=== PATIENT | male | born 1960 | race Two or more races ===

== ENCOUNTER → 2017-03-07 | Outpatient (CLI) | payer MEDICARE, MEDICAID ==
[~2017-03-07] MED LIST: ACE3 PO; ACET-1748 PO; ALL300 PO; AZIT500T47 PO; BACDS PO; CALC-649 PO; CEFU250 PO; CHOL10005 PO; CYA1000 PO; DOC100 PO; ESOM40CA42 PO; FISH OIL1 CAP PO; FLUO-202 PO; FLUO40CA76 PO; FOLI-68 PO; INUL2TAB7 PO; KET10 PO; LACT250L10 PO; LEVO50TA80 PO; LOR05 PO; LOR5 PO; MELO-150 PO; METR1COM3 TP; METR45CR9 TP; METR59LO TP; MULT-1335 PO; MULT-820 PO; OMEG-11 PO; PHEN100 PO; Phenytek PO; SODI44SP17 NS; TAM4 PO; TRA50 PO; [UNRECOGNIZED DRUG - CODE] TP; [UNRECOGNIZED DRUG - OTHER] TP
--- NOTE | 2017-03-10 11:01 | RADIOLOGY IMAGING REPORT ---
FACILITY: [facility] PATIENT NAME: Zechariah Worley : 1960 MR: [id number] V: [id number] EXAM DATE: ORDERING PHYSICIAN: MUSTAPHA LEMUS TECHNOLOGIST: Location: [facility] Patient: Zechariah Worley : 1960 Visit/Account:[id number] Date of Sevice: 03/07/2017 EXAMINATION: CT abdomen without IV contrast CT pelvis without IV contrast History: Stones TECHNIQUE: Spiral scan was through the abdomen and pelvis without intravenous contrast. One of the following dose optimization techniques was utilized in the performance of this exam: Automated exposu re control; adjustment of the mA and/or kV according to the patient's size; or use of an iterative r econstruction technique. Specific details can be referenced in the facility's radiology CT exam oper ational policy. COMPARISON STUDIES: 02/25/2016. FINDINGS: Please note that without intravenous contrast, sensitivity to detection of parenchymal disease is kate ited. Lower chest: negative Liver / biliary: Status post cholecystectomy Pancreas: negative Spleen: negative Adrenal glands: negative Kidneys / retroperitoneum: Stable nonobstructing bilateral nephrolithiasis. No hydronephrosis or ure teral stones. Pelvic structures: negative Bowel / peritoneum / mesenteries: negative Vessels: negative Musculoskeletal / Body wall: Containing ventral abdominal wall hernia unchanged. Chronic compression fracture of T12 unchanged. Advanced spondylosis throughout the lumbar spine. Lymph node assessment: negative IMPRESSION: 1. Stable nonobstructing bilateral nephrolithiasis. No evidence of hydronephrosis or ureteral stone s. 2. Cholecystectomy. 3. Chronic compression fracture of T12 unchanged. Report Dictated By: Obey Lester MD at 03/07/2017 9:35 AM Report E-Signed By: Obey Lester MD at 03/07/2017 9:42 AM WSN:[email or web address]
== END ==
LOC: CT 00:41
PROVIDERS: ATTEND Urology
DX: N20.0 Calculus of kidney (principal); Z90.49 Acquired absence of other specified parts of digestive tract; K43.9 Ventral hernia without obstruction or gangrene
CPT/HCPCS: 74176

== ENCOUNTER 2017-03-09 08:56 | Outpatient (RCR) | payer MEDICARE, MEDICAID ==
--- NOTE | 2017-03-07 09:46 | RADIOLOGY IMAGING REPORT ---
FACILITY: [facility] - [place] PATIENT NAME: Zechariah Worley : 1960 MR: [id number] V: [id number] EXAM DATE: ORDERING PHYSICIAN: CAREN BOWDEN TECHNOLOGIST: Location: [facility] [place] Patient: Zechariah Worley : 1960 Visit/Account:[id number] Date of Sevice: 03/07/2017 EXAMINATION: CT abdomen without IV contrast CT pelvis without IV contrast History: Stones TECHNIQUE: Spiral scan was through the abdomen and pelvis without intravenous contrast. One of the following dose optimization techniques was utilized in the performance of this exam: Automated exposu re control; adjustment of the mA and/or kV according to the patient's size; or use of an iterative r econstruction technique. Specific details can be referenced in the facility's radiology CT exam oper ational policy. COMPARISON STUDIES: 02/25/2016. FINDINGS: Please note that without intravenous contrast, sensitivity to detection of parenchymal disease is kate ited. Lower chest: negative Liver / biliary: Status post cholecystectomy Pancreas: negative Spleen: negative Adrenal glands: negative Kidneys / retroperitoneum: Stable nonobstructing bilateral nephrolithiasis. No hydronephrosis or ure teral stones. Pelvic structures: negative Bowel / peritoneum / mesenteries: negative Vessels: negative Musculoskeletal / Body wall: Containing ventral abdominal wall hernia unchanged. Chronic compression fracture of T12 unchanged. Advanced spondylosis throughout the lumbar spine. Lymph node assessment: negative IMPRESSION: 1. Stable nonobstructing bilateral nephrolithiasis. No evidence of hydronephrosis or ureteral stone s. 2. Cholecystectomy. 3. Chronic compression fracture of T12 unchanged. Report Dictated By: Obey Lester MD at 03/07/2017 9:35 AM Report E-Signed By: Obey Lester MD at 03/07/2017 9:42 AM WSN:[email or web address]
[~2017-03-09] VITALS: Ht 162.6 cm; Wt 61.6 kg
[2017-03-09 09:08] VITALS: BP 102/67
[2017-03-09 09:23] LABS: PLATELET COUNT, AUTOMATED 354 K/uL (150-450)
--- NOTE | 2017-03-09 18:04 | ONCOLOGY FOLLOW UP NOTE ---
EVENT DATE: March 09, 2017 DIAGNOSES 1. Macrocytosis with normal CBC. 2. Hypothyroidism. 3. Depression. 4. History of vitamin B12 deficiency on vitamin B12 sublingual tablets. 5. Status post pacemaker placement for heart arrhythmia. 6. Osteoporosis. 7. Gout. 8. Mental retardation. CHIEF COMPLAINT Patient is here today for followup of his macrocytosis and lymphocytosis. HEMATOLOGY HISTORY The patient is a 56-year-old male with mental retardation due to Down syndrome who is an [facility] resident. The patient has been followed by Edwina Medina MD, who found that the patient has high MCV and MCH for sometime. He has a history of low vitamin B12, corrected with B12 supplement, but without improvement of MCV or MCH. His CBC on April 23, 2015 revealed white count of 8.2, hemoglobin 13.9, hematocrit 42.2, platelets 279,000. MCV was 104, MCH was 34.3. Absolute lymphocytic count was high at 3.9. Repeat CBC showed white count 5.4, hemoglobin 14.4, hematocrit 44.9, platelets 304,000 and MCV 106.5. Chem panel totally normal with normal liver enzymes. TSH is normal at 2.1. Red cell folate, serum folate, serum B12 and methylmalonic acid assay and serum protein electrophoresis all came within the normal range. HISTORY OF PRESENT ILLNESS Patient is here today for followup of his macrocytosis and lymphocytosis. He is doing fine currently and denies any complaint. PAST MEDICAL HISTORY 1. Gout. 2. Hypothyroidism. 3. GERD. 4. Pulmonary hypertension. 5. Atrioseptal defect. 6. History of renal stones. 7. Seizures. 8. Cardiac arrhythmias, status post pacemaker placement. PAST SURGICAL HISTORY 1. Pacemaker placement. 2. Cervical fusion in August 2010. FAMILY HISTORY Mother of cancer in 2008. SOCIAL HISTORY The patient is living in the [facility]. No abuse of tobacco, alcohol or drugs. CURRENT MEDICATIONS 1. Tylenol p.r.n. 2. Allopurinol 300 mg daily. 3. Antacid 500 mg chew two tablets for upset stomach. 4. Imodium 2 mg p.r.n. for diarrhea. 5. Calcium 600 mg plus vitamin D one tablet daily. 6. Fiber-Lax 500 mg one tablet twice daily. 7. Fish oil 1000 mg one tablet twice daily. 8. Fluoxetine 40 mg one tablet daily. 9. Fosamax 70 mg one tablet weekly. 10. Levothyroxine 75 mcg to alternate with 50 mcg daily. 11. Multivitamins. 12. Nexium 40 mg daily. 13. Tamsulosin 0.4 mg once daily. 14. Vitamin B12 at 1000 mcg sublingual tablet three times daily. 15. Vitamin D3 at 1000 international units daily. ALLERGIES No known drug allergies. REVIEW OF SYSTEMS CONSTITUTIONAL: No appetite or weight change. No fever, chills or sweating. No recent infection. HEENT: Ears: No tinnitus or hearing problem. Nose: No nasal discharge or epistaxis. Throat: No sore throat or mouth ulcers. Eyes: No diplopia or visual changes. RESPIRATORY: No shortness of breath. No cough, expectoration or hemoptysis. CARDIOVASCULAR: No chest pain, orthopnea, or paroxysmal nocturnal dyspnea (PND) . No edema. No palpitations. GASTROINTESTINAL: No nausea or vomiting. No diarrhea or constipation. No change in bowel movements. No heartburn or swallowing difficulties. No abdominal pain. No jaundice. No hematemesis, melena or rectal bleeding. GENITOURINARY: No hematuria or dysuria. MUSCULOSKELETAL: No pain in the muscles, joints or bones. NEUROLOGICAL: No tingling or numbness in the hands or feet. No headaches or convulsions. HEMATOLOGIC/LYMPHATIC: No bleeding or easy bruising. No weakness or fatigue. No enlarged lymph nodes. SKIN: No skin rash or lumps. PSYCHIATRIC: No anxiety or depression. PHYSICAL EXAMINATION GENERAL: Looks stable. Well-developed, well-nourished, and in no acute distress. VITAL SIGNS: Blood pressure 102/67, pulse 89 per minute, respirations 16 per minute, temperature 97.8, pulse ox 94% on room air. HEENT: Head: Atraumatic. No sinus tenderness to palpation. Eyes: No icterus or conjunctivitis. Mouth and throat: No oral thrush or mucositis. NECK: Supple. No cervical or supraclavicular lymphadenopathy. LUNGS: Clear to auscultation and percussion bilaterally. HEART: Regular rate and rhythm. No gallops, murmurs, clicks or rubs. ABDOMEN: Soft and lax. No tenderness. No hepatosplenomegaly. No masses. EXTREMITIES: No cyanosis, clubbing or edema. LYMPHATICS: No peripheral lymphadenopathy. NEUROLOGICAL: Conscious, alert and oriented times three. No focal motor or sensory deficits. PSYCHIATRIC: Mood and affect appear normal. SKIN: No skin rash, bruise or purpuric eruption. DIAGNOSTIC DATA CBC showed a white count of 7000, hemoglobin 15.6, hematocrit 46.2, platelets 354,000. MCV is 105.9 which is stable. Flow cytometry of the peripheral blood showed just CD8 positive reactive T cells, but no evidence of lymphoma of leukemia. ASSESSMENT 1. Macrocytosis. Could be due to drug effect given that the patient does not have any other abnormality in his workup. B12 folate and methylmalonic acid assay, red cell folate, serum protein immunoelectrophoresis all came back normal. TSH came back within the normal range also. His macrocytosis is chronic and is stable. His current MCV is 105.9. I am planning to check his blood count every six months. Patients with Down syndrome are liable to develop acute leukemia, and maybe myelodysplastic syndrome, and for this reason we are going to monitor his blood count every six months. 2. Absolute lymphocytosis and flow cytometry showed CD8 positive reactive T cells. There is no evidence of lymphoma or leukemia. 3. Hypothyroidism on supplement. 4. Depression. 5. Osteoporosis, on treatment. 6. Gout, on treatment. PLAN 1. Continue followup. 2. Patient to return in one month with CBC. 3. Patient is to contact us for any new concerns or complaints. JT
== END 2017-03-09 15:37 | disposition home or self-care (01) ==
LOC: SPU 08:56
PROVIDERS: ATTEND Internal Medicine Hematology
DX: D75.89 Other specified diseases of blood and blood-forming organs (principal); D72.820 Lymphocytosis (symptomatic); E03.9 Hypothyroidism, unspecified; M81.0 Age-related osteoporosis without current pathological fracture; M10.9 Gout, unspecified; Z79.899 Other long term (current) drug therapy; F79 Unspecified intellectual disabilities
CPT/HCPCS: 36415; 85025; G0463; 99212

== ENCOUNTER → 2017-04-20 | Outpatient (CLI) | payer MEDICARE, MEDICAID ==
[~2017-04-20] MED LIST changes: +IOPAMIDOL 76% 75 ML INFUS BTL 75 ML ONE; +NS 0.9% 20 ML SDV 20 ML ONE
--- NOTE | 2017-04-20 15:31 | RADIOLOGY IMAGING REPORT ---
FACILITY: [facility] PATIENT NAME: Zechariah Worley : 1960 MR: [id number] V: [id number] EXAM DATE: ORDERING PHYSICIAN: ANTOINETTE MODI TECHNOLOGIST: Location: [facility] [place] Patient: Zechariah Worley : 1960 Visit/Account:[id number] Date of Sevice: 04/20/2017 HEAD W W/O CONTRAST Provided history: Cerebellar ataxia, general weakness, hyperreflexia, short-term memory loss, shuffli ng gait Additional pertinent history: none TECHNIQUE: Imaging was obtained from the skull base through the vertex without and with intravenous c ontrast Contrast dose: 75 mL Isovue 370 intravenously. Source images were reformatted in the coronal sagittal planes. One of the following dose optimization techniques was utilized in the performance of this exam: Autom ated exposure control; adjustment of the mA and/or kV according to the patient's size; or use of an i terative reconstruction technique. Specific details can be referenced in the facility's radiology CT exam operational policy. COMPARISON STUDIES: Nonenhanced CT 03/12/12 FINDINGS: Brain volume: Lateral ventriculomegaly is progressive from prior. Maximal transverse diameter mid b carmela lateral ventricles today is 49 mm compared to 37 mm in prior. There is also new moderate symmetr ic enlargement of the temporal horns. Sylvian fissures are out of proportion to the mildly prominent sulci. 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 Acute cortical ischemia: None Chronic cortical and ganglionic ischemia: A small focus of subcortical hypodensity was present in t he posterior upper right frontal lobe adjacent to the motor strip. That area has now expanded to inv olve up to 2.6 x 3.1 cm transverse diameter encephalomalacic lesion compared to approximately 0.9 x 1.2 cm on prior. There is no localized mass effect or enhancement and this represents interim chroni c ischemia developing since last study 2011. This was described as in the parietal lobe on previous, however I think this is actually in the posterior frontal lobe directly affecting the motor strip. No other interim ischemia in the brain. Hemorrhage: None Masses / edema: None White matter: Normal Vessels: Normal Extra-axial: None significant Calvarium / scalp: Negative Skull base: negative Visualized sinuses / orbits: negative Partially at the sella is unchanged from prior. IMPRESSION: 1. No evidence of hemorrhage, acute ischemia or intracranial mass. 2. Progressive volume loss since last study 2011. Perisylvian and medial temporal volume loss is ou t of proportion to elsewhere raising concern for potential Alzheimer's. Correlate clinically. 3. Posterior superior right frontal lobe encephalomalacia. See above comments. 4. Stable giant cisterna magna. Report Dictated By: Clinton Ybarra MD at 04/20/2017 3:13 PM Report E-Signed By: Clinton Ybarra MD at 04/20/2017 3:26 PM WSN:[id number]
== END ==
LOC: CT 00:43
PROVIDERS: ATTEND Nurse Practitioner Family
DX: R93.0 Abnormal findings on diagnostic imaging of skull and head, not elsewhere classified (principal); G11.9 Hereditary ataxia, unspecified; R53.1 Weakness; R29.2 Abnormal reflex; R41.3 Other amnesia; R26.89 Other abnormalities of gait and mobility
CPT/HCPCS: 70470; J7050; Q9967

== ENCOUNTER 2017-08-30 10:56 | Outpatient (RCR) | payer MEDICARE, MEDICAID ==
[~2017-08-30] VITALS: Ht 154.9 cm; Wt 58.1 kg
[~2017-08-30 10:56] MED LIST changes: -IOPAMIDOL 76% 75 ML INFUS BTL 75 ML ONE; -NS 0.9% 20 ML SDV 20 ML ONE
--- NOTE | 2017-08-30 17:32 | Medical Nutrition Therapy ---
Nutrition Anthropometrics Height (Inches): 61 Weight (Pounds): 128 Pablo Nutrition Score: Pablo Nutrition Risk Score: Dietary Referral Nutrition Risk Factors: Nutrition Risk Comment: Nutritional Education Nutrition Education Topic: Weight Loss Diet Learning Barriers: Cognitive Learning Readiness: Little Interest (pt had little interest, caregivers were interested) Response to Teaching: Verbalize understanding (caregivers) Teaching Recipient: Patient, Primary Caregiver Nutrition Counseling: ARK pt attended session on nutrition to assist with wt loss. Pt did not show interest in session but care givers were interested. Discussed importance of correct portion of foods to assist with wt loss. Provided Exchange list diet with emphasis on food groups and how to incorporat this in main meal plan. Majority of session was spent developing healthy weekly meal plan with care givers. Care givers will f/u with meal ideas which will be reviewed by RD. Goal is to provide 4 week menu that works with pt's nutrtional needs. Nutrition Monitoring & Eval RD Patient Assessment Time: [address] Assessment Type: RD Education Nutritional Comment: Provided 60 minute MNT for wt loss Copies To Copies to: CAESAR HERCULES MD, BETH Aug 30, 2017 17:32
== END 2017-10-04 ==
LOC: DIET 10:56
PROVIDERS: ATTEND Psychiatry & Neurology Psychiatry
DX: Z71.3 Dietary counseling and surveillance (principal); R63.5 Abnormal weight gain; Q90.9 Down syndrome, unspecified; Z68.24 Body mass index [BMI] 24.0-24.9, adult
CPT/HCPCS: 97802; 97804

== ENCOUNTER 2017-10-05 09:00 | Outpatient (RCR) | payer MEDICARE, MEDICAID ==
[~2017-10-05] VITALS: Ht 162.6 cm; Wt 58.8 kg
[2017-10-05 09:39] VITALS: BP 86/66
[2017-10-05 09:46] LABS: PLATELET COUNT, AUTOMATED 359 K/uL (150-450)
--- NOTE | 2017-10-05 16:48 | ONCOLOGY FOLLOW UP NOTE ---
EVENT DATE: October 05, 2017 DIAGNOSES 1. Macrocytosis with normal CBC. 2. Hypothyroidism. 3. Depression. 4. History of vitamin B12 deficiency on vitamin B12 sublingual tablets. 5. Status post pacemaker placement for heart arrhythmia. 6. Osteoporosis. 7. Gout. 8. Mental retardation. CHIEF COMPLAINT Patient is here today for followup of his macrocytosis and lymphocytosis. HEMATOLOGY HISTORY The patient is a 57-year-old male with mental retardation due to Down syndrome who is an [facility] resident. The patient has been followed by Edwina Medina MD, who found that the patient has high MCV and MCH for sometime. He has a history of low vitamin B12, corrected with B12 supplement, but without improvement of MCV or MCH. His CBC on April 23, 2015 revealed white count of 8.2, hemoglobin 13.9, hematocrit 42.2, platelets 279,000. MCV was 104, MCH was 34.3. Absolute lymphocytic count was high at 3.9. Repeat CBC showed white count 5.4, hemoglobin 14.4, hematocrit 44.9, platelets 304,000 and MCV 106.5. Chem panel totally normal with normal liver enzymes. TSH is normal at 2.1. Red cell folate, serum folate, serum B12 and methylmalonic acid assay and serum protein electrophoresis all came within the normal range. HISTORY OF PRESENT ILLNESS Patient is here today for followup of his macrocytosis and lymphocytosis. He is doing fine currently and denies any complaints. PAST MEDICAL HISTORY 1. Gout. 2. Hypothyroidism. 3. GERD. 4. Pulmonary hypertension. 5. Atrioseptal defect. 6. History of renal stones. 7. Seizures. 8. Cardiac arrhythmias, status post pacemaker placement. PAST SURGICAL HISTORY 1. Pacemaker placement. 2. Cervical fusion in August 2010. FAMILY HISTORY Mother of cancer in 2008. SOCIAL HISTORY The patient is living in the [facility]. No abuse of tobacco, alcohol or drugs. CURRENT MEDICATIONS 1. Tylenol p.r.n. 2. Allopurinol 300 mg daily. 3. Antacid 500 mg chew two tablets for upset stomach. 4. Imodium 2 mg p.r.n. for diarrhea. 5. Calcium 600 mg plus vitamin D one tablet daily. 6. Fiber-Lax 500 mg one tablet twice daily. 7. Fish oil 1000 mg one tablet twice daily. 8. Fluoxetine 40 mg one tablet daily. 9. Fosamax 70 mg one tablet weekly. 10. Levothyroxine 75 mcg to alternate with 50 mcg daily. 11. Multivitamins. 12. Nexium 40 mg daily. 13. Tamsulosin 0.4 mg once daily. 14. Vitamin B12 at 1000 mcg sublingual tablet three times daily. 15. Vitamin D3 at 1000 international units daily. ALLERGIES No known drug allergies. REVIEW OF SYSTEMS CONSTITUTIONAL: No appetite or weight change. No fever, chills or sweating. No recent infection. HEENT: Ears: No tinnitus or hearing problem. Nose: No nasal discharge or epistaxis. Throat: No sore throat or mouth ulcers. Eyes: No diplopia or visual changes. RESPIRATORY: No shortness of breath. No cough, expectoration or hemoptysis. CARDIOVASCULAR: No chest pain, orthopnea, or paroxysmal nocturnal dyspnea (PND) . No edema. No palpitations. GASTROINTESTINAL: No nausea or vomiting. No diarrhea or constipation. No change in bowel movements. No heartburn or swallowing difficulties. No abdominal pain. No jaundice. No hematemesis, melena or rectal bleeding. GENITOURINARY: No hematuria or dysuria. MUSCULOSKELETAL: No pain in the muscles, joints or bones. NEUROLOGICAL: No tingling or numbness in the hands or feet. No headaches or convulsions. HEMATOLOGIC/LYMPHATIC: No bleeding or easy bruising. No weakness or fatigue. No enlarged lymph nodes. SKIN: No skin rash or lumps. PSYCHIATRIC: No anxiety or depression. PHYSICAL EXAMINATION GENERAL: Looks stable. Well-developed, well-nourished, and in no acute distress. VITAL SIGNS: Blood pressure 86/66, pulse 66 per minute, respirations 16 per minute, temperature 96.7, pulse ox 97% on room air. HEENT: Head: Atraumatic. No sinus tenderness to palpation. Eyes: No icterus or conjunctivitis. Mouth and throat: No oral thrush or mucositis. NECK: Supple. No cervical or supraclavicular lymphadenopathy. LUNGS: Clear to auscultation and percussion bilaterally. HEART: Regular rate and rhythm. No gallops, murmurs, clicks or rubs. ABDOMEN: Soft and lax. No tenderness. No hepatosplenomegaly. No masses. EXTREMITIES: No cyanosis, clubbing or edema. LYMPHATICS: No peripheral lymphadenopathy. NEUROLOGICAL: Conscious, alert and oriented times three. No focal motor or sensory deficits. PSYCHIATRIC: Mood and affect appear normal. SKIN: No skin rash, bruise or purpuric eruption. DIAGNOSTIC DATA CBC showed a white count of 5.5, hemoglobin 15.6, hematocrit 45.7, MCV 104.4 and platelets 359,000. Absolute lymphocytic count is normal at 2.6. ASSESSMENT 1. Macrocytosis. Could be due to drug effect given that the patient does not have any other abnormality in his workup. B12 folate and methylmalonic acid assay, red cell folate, serum protein immunoelectrophoresis all came back normal. TSH was also normal. His macrocytosis is chronic and stable. His current MCV is 104.4. It was 105.9 last visit. I am planning to continue followup. I will see him again in six months with CBC at that time. Patients with Down syndrome are liable to develop acute leukemia and myelodysplastic syndrome, and for this reason I am going to monitor his blood count every six months. 2. Absolute lymphocytosis and flow cytometry showed CD8 positive reactive T cells. No evidence of lymphoma or leukemia. His current absolute lymphocytic count today is normal at 2.6. 3. Hypothyroidism, on supplement. 4. Depression. 5. Osteoporosis, on treatment. 6. Gout, on treatment. PLAN 1. Continue followup. 2. Patient to return in six months with CBC. 3. Patient is to contact us for any new concerns or complaints. JT
[2017-10-28] MEDS ORDERED: MELA3TAB31 PO (10:54)
[2017-10-28] MEDS ORDERED: DULO30CA6 PO (10:54)
[2017-10-28] MEDS ORDERED: ALEN70TA43 PO (10:54)
[2017-10-28] MEDS ORDERED: LOSA25TA50 PO (10:54)
[2017-10-28] MEDS ORDERED: LEVO75TA73 PO (15:39)
[2017-10-28] MEDS ORDERED: EMOL454O TP (15:39)
[2017-10-28] MEDS ORDERED: CALC625T65 PO (15:39)
[2017-10-28] MEDS ORDERED: LOPE2CAP15 PO (15:50)
[2017-10-28] MEDS ORDERED: ACET-2146 PO (15:50)
[2017-10-28] MEDS ORDERED: EYEL1MED TP (15:50)
[2017-10-28] MEDS ORDERED: CALC1TAB24 PO (15:50)
[2017-10-28] MEDS ORDERED: COAL130S5 TP (15:50)
[2017-10-28] MEDS ORDERED: METR45CR9 TP (15:50)
[2017-10-28] MEDS ORDERED: TRIA15OI20 TP (15:56)
[2017-10-28] MEDS ORDERED: BACI1OIN6 TP (15:56)
[2017-10-28] MEDS ORDERED: GUAI-244 PO (15:56)
[2017-10-28] MEDS ORDERED: HYDR28GE3 TP (15:56)
[2017-11-02] MEDS ORDERED: LEVE500T73 PO (08:55)
[2017-11-02] MEDS ORDERED: LOR5/325 PO (08:55)
== END 2017-11-10 08:26 | disposition home or self-care (01) ==
LOC: SPU 09:00
PROVIDERS: ATTEND Internal Medicine Hematology
DX: D75.89 Other specified diseases of blood and blood-forming organs (principal); R71.8 Other abnormality of red blood cells; E03.9 Hypothyroidism, unspecified; D72.820 Lymphocytosis (symptomatic); M81.0 Age-related osteoporosis without current pathological fracture; M10.9 Gout, unspecified; Z79.899 Other long term (current) drug therapy; Z95.0 Presence of cardiac pacemaker
CPT/HCPCS: 36415; 85025; G0463; 99212

== ENCOUNTER 2017-10-28 10:20 | Inpatient (IN) | payer MEDICARE, MEDICAID ==
[~2017-10-28] VITALS: Ht 162.6 cm; Wt 59.0 kg
[~2017-10-28 10:20] MED LIST changes: -ACET-2146 PO; -ALEN70TA43 PO; -BACI1OIN6 TP; -CALC1TAB24 PO; -CALC625T65 PO; -COAL130S5 TP; -DULO30CA6 PO; -EMOL454O TP; -EYEL1MED TP; -GUAI-244 PO; -HYDR28GE3 TP; -LEVE500T73 PO; -LEVO75TA73 PO; -LOPE2CAP15 PO; -LOR5/325 PO; -LOSA25TA50 PO; -MELA3TAB31 PO; -TRIA15OI20 TP
[2017-10-28] MEDS ORDERED: DIPHTH/TETANUS/ACEL. PERTUSSIS IM ONE (10:25)
--- NOTE | 2017-10-28 10:25 | ER Report ---
History and Physical Time Seen By MD: 10:24 HPI/ROS CHIEF COMPLAINT: Fall, unwitnessed HISTORY OF PRESENT ILLNESS: Patient is a 57-year-old male with intellectual disability from a fci here status post unwitnessed fall while in the kitchen on a tile floor. Patient was found on the floor bleeding from his nostrils, confused. At time of arrival, the patient is restless, agitated with c -collar on. Patient is not actively bleeding at time of evaluation. REVIEW OF SYSTEMS: Unable to obtain due to mental status Allergies: Uncoded Allergies: AVOID NSAIDS (Adverse Reaction, Unknown, 11/23/11) Home Meds Reported Medications Triamcinolone Acetonide 0.1% Oint 15 Gm Tube (TRIAMCINOLONE ACETONIDE 0.1% 15 GM TUBE) 15 Gm Oint...g., 1 APPLIC TP PRN, TUBE 10/28/17 Guaifenesin (ROBAFEN) 100 Mg/5 Ml Liquid, 5-10 ML PO PRN Y for COUGH 10/28/17 Hydrocortisone (CORTIZONE 10) 28 Gm Gel..gram., 1 APPLIC TP PRN 10/28/17 Bacitracin Zinc (Bacitracin Zinc) 1 Each Oint..ea., 1 APPLIC TP PRN 10/28/17 Loperamide HCl (Imodium A-D) 2 Mg Capsule, 2 TAB PO PRN Y for DIARRHEA 2 tabs after 2 watery stools 10/28/17 Calcium Carbonate/Mag Hydrox (ANTACID CHEWABLE TABLET) 1 Each Tab.chew, 2 TAB PO PRN, TAB.CHEW 10/28/17 Acetaminophen 500 Mg Tab (ACETAMINOPHEN EXTRA STRENGTH) 500 Mg Tablet, 2 TAB PO Q4-6H Y for PAIN, TAB 10/28/17 [place] Tar (T-Gel) 0.5 % Shampoo, 1 FREDDY TP 3XW 10/28/17 Eyelid Cleanser Combination #5 (OCUSOFT LID SCRUB) 1 Each Med..pad, 1 EACH TP BID 10/28/17 Metronidazole (METRONIDAZOLE) 45 Gm Cream..g., 1 APPLIC TP HS 0.75% cream 10/28/17 Levothyroxine Sodium (LEVOTHYROXINE SODIUM) 75 Mcg Tablet, 75 MCG PO QDAY, TAB 10/28/17 Emollient Combination No.97 (Aquaphilic) 454 Gm Oint...g., 1 APPLIC TP BID 10/28/17 Calcium Polycarbophil (FIBER-LAX) 625 Mg Tablet, 1 TAB PO BID 10/28/17 Melatonin (MELATONIN) 3 Mg Tablet, 3 MG PO QHS 10/28/17 Losartan Potassium (LOSARTAN POTASSIUM) 25 Mg Tablet, 25 MG PO QDAY 10/28/17 Duloxetine HCl (Duloxetine HCl) 30 Mg Capsule.dr, 1 CAP PO DAILY 10/28/17 Alendronate Sodium (FOSAMAX) 70 Mg Tablet, 70 MG PO QWK, TAB 10/28/17 Folic Acid (FOLIC ACID) 1 Mg Tablet, 1 MG PO QDAY, TAB 02/10/17 Cholecalciferol (Vitamin D3) (VITAMIN D3) 1,000 Unit Tablet, 1000 UNIT PO QPM, TAB 02/10/17 Cyanocobalamin (Vitamin B-12) (VITAMIN B-12) 1,000 Mcg Tablet, 1000 MCG PO 2XW 02/10/17 Tamsulosin Hcl (Flomax) 0.4 Mg Cap, 0.4 MG PO QDAY, #30 0 Refills 05/26/11 Docosahexanoic Acid/Epa (Fish Oil 1,000 Mg Capsule) 1 Cap Capsule, 1 CAP PO BID , 0 Refills 05/24/11 Lorazepam (Ativan) 0.5 Mg Tab, 0.5 MG PO Q8H Y, 0 Refills 04/12/11 Multivitamins W-Minerals (Multiple Vitamin) 1 Tab Tablet, 1 TAB PO DAILY, 0 Refills 04/12/11 Allopurinol (Zyloprim) 300 Mg Tab, 300 MG PO QPM, 0 Refills 04/12/11 Calcium Carbonate/Vitamin D3 (Calcium + D Tablet) 1 Udtab Tablet, 1 TAB PO TID, 0 Refills Calcium 600mg/Vit D 400mg 04/12/11 Esomeprazole Mag Trihydrate (Nexium) 40 Mg Capsule.dr, 40 MG PO QDAY, 0 Refills 04/12/11 Levothyroxine Sodium (Synthroid) 50 Mcg Tablet, 50 MCG PO DAILY, 0 Refills 04/12/11 Discontinued Reported Medications [Zulay Bruno] No Conflict Check, TP BID, 0 Refills 05/24/11 Metronidazole/Skin Cleanser (Metrogel 1% Kit) 1 Ea Combo..pkg, 1 EA TP DAILY, 0 Refills 05/24/11 Fluoxetine Hcl (Prozac) 40 Mg Capsule, 40 MG PO QDAY, #20 0 Refills 04/12/11 Fiber (Fiber) 1 Tab.chew Tab.chew, 1 TAB.CHEW PO BID, 0 Refills 04/12/11 Hx Smoking: No Exposure to Second Hand Smoke?: No Hx Substance Use Disorder: No Hx Alcohol Use: No Constitutional Vital Sign - Last 24 Hours 10/28/17 10/28/17 10/28/17 10/28/17 10:13 10:45 11:00 11:30 Temp 97.7 Pulse 125 124 88 69 Resp 22 B/P (MAP) 127/94 Pulse Ox 91 89 84 95 O2 Delivery Room Air 10/28/17 10/28/17 10/28/17 10/28/17 11:42 11:45 12:00 12:15 Pulse 60 65 65 B/P (MAP) 104/79 (87) 101/75 (84) Pulse Ox 94 96 94 10/28/17 10/28/17 10/28/17 10/28/17 12:30 12:45 13:00 13:15 Pulse 83 65 69 60 B/P (MAP) 111/80 (90) 100/63 (75) Pulse Ox 97 96 97 93 10/28/17 10/28/17 13:30 13:45 Pulse 89 85 B/P (MAP) 107/76 (86) Pulse Ox 92 95 Physical Exam General Appearance: The patient is alert, has no immediate need for airway protection and no signs of toxicity. Agitated, restless Eyes: Pupils equal and round no pallor or injection. ENT, Mouth: Mucous membranes are moist, small laceration on the bridge of the nose, dried blood of the nostrils Respiratory: There are no retractions, lungs are clear to auscultation. Cardiovascular: Regular rate and rhythm. Gastrointestinal: Abdomen is soft and non tender, no masses, bowel sounds normal. Neurological: Moving all extremities spontaneously Skin: Warm and dry, no rashes. Musculoskeletal: Neck is supple non tender. Extremities are nontender, nonswollen and have full range of motion. DIFFERENTIAL DIAGNOSIS: After history and physical exam differential diagnosis was considered for contusion, abrasion, fracture, concussion Medical Decision Making Data Points Result Diagram: 10/29/17 0639 10/29/17 0639 Laboratory Hematology Test 10/28/17 10:20 10/28/17 13:33 10/28/17 13:46 Neutrophils % (Manual) 30 % (39.4-72.5) Lymphocytes % (Manual) 31 % (17.6-49.6) Atypical Lymphocytes % 34 % Monocytes % (Manual) 2 % (4.1-12.4) Eosinophils % (Manual) 1 % (0.4-6.7) Basophils % (Manual) 2 % (0.3-1.4) Macrocytosis 1+ Peripheral Blood Smear Yes Y/N Prothrombin Time 13.0 seconds (12.0-14.4) Prothromb Time International Ratio 0.99 Activated Partial Thromboplast Time 27 seconds (23-35) Lipase 74 U/L (23-300) Urine Color Yellow Urine Clarity Clear Urine pH 6.0 pH (4.8-9.5) Urine Specific [place] 1.008 Urine Protein Negative mg/dL (NEGATIVE) Urine Glucose (UA) Negative mg/dL (NEGATIVE) Urine Ketones Negative mg/dL (NEGATIVE) Urine Blood Negative (NEGATIVE) Urine Nitrite Negative (NEGATIVE) Urine Bilirubin Negative (NEGATIVE) Urine Urobilinogen Negative mg/dL (0.2-1.9) Urine Leukocyte Esterase Negative (NEGATIVE) Urine RBC <1 /HPF (0-2/HPF) Urine WBC 1 /HPF (0-5/HPF) Urine Squamous Epithelial Cells None /LPF (NONE-FEW) Urine Bacteria Few /HPF (NONE-FEW) Urine Hyaline Casts Few /LPF (NONE-FEW) Urine Mucus None /HPF (NONE-FEW) Lactate 1.5 mmol/L (0.7-2.1) Chemistry Test 10/28/17 10:20 10/28/17 13:33 10/28/17 13:46 Neutrophils % (Manual) 30 % (39.4-72.5) Lymphocytes % (Manual) 31 % (17.6-49.6) Atypical Lymphocytes % 34 % Monocytes % (Manual) 2 % (4.1-12.4) Eosinophils % (Manual) 1 % (0.4-6.7) Basophils % (Manual) 2 % (0.3-1.4) Macrocytosis 1+ Peripheral Blood Smear Yes Y/N Prothrombin Time 13.0 seconds (12.0-14.4) Prothromb Time International Ratio 0.99 Activated Partial Thromboplast Time 27 seconds (23-35) Lipase 74 U/L (23-300) Urine Color Yellow Urine Clarity Clear Urine pH 6.0 pH (4.8-9.5) Urine Specific [place] 1.008 Urine Protein Negative mg/dL (NEGATIVE) Urine Glucose (UA) Negative mg/dL (NEGATIVE) Urine Ketones Negative mg/dL (NEGATIVE) Urine Blood Negative (NEGATIVE) Urine Nitrite Negative (NEGATIVE) Urine Bilirubin Negative (NEGATIVE) Urine Urobilinogen Negative mg/dL (0.2-1.9) Urine Leukocyte Esterase Negative (NEGATIVE) Urine RBC <1 /HPF (0-2/HPF) Urine WBC 1 /HPF (0-5/HPF) Urine Squamous Epithelial Cells None /LPF (NONE-FEW) Urine Bacteria Few /HPF (NONE-FEW) Urine Hyaline Casts Few /LPF (NONE-FEW) Urine Mucus None /HPF (NONE-FEW) Lactate 1.5 mmol/L (0.7-2.1) Coagulation Test 10/28/17 10:20 Prothrombin Time 13.0 seconds Prothromb Time International Ratio 0.99 Activated Partial Thromboplast Time 27 seconds Urinalysis Test 10/28/17 13:33 Urine Color Yellow Urine Clarity Clear Urine pH 6.0 pH (4.8-9.5) Urine Specific [place] 1.008 Urine Protein Negative mg/dL (NEGATIVE) Urine Glucose (UA) Negative mg/dL (NEGATIVE) Urine Ketones Negative mg/dL (NEGATIVE) Urine Blood Negative (NEGATIVE) Urine Nitrite Negative (NEGATIVE) Urine Bilirubin Negative (NEGATIVE) Urine Urobilinogen Negative mg/dL (0.2-1.9) Urine Leukocyte Esterase Negative (NEGATIVE) Urine RBC <1 /HPF (0-2/HPF) Urine WBC 1 /HPF (0-5/HPF) Urine Squamous Epithelial Cells None /LPF (NONE-FEW) Urine Bacteria Few /HPF (NONE-FEW) Urine Hyaline Casts Few /LPF (NONE-FEW) Urine Mucus None /HPF (NONE-FEW) EKG/Imaging Imaging EXAMINATION: CT chest with IV contrast CT abdomen with IV contrast CT pelvis with IV contrast HISTORY: Trauma. Fall. TECHNIQUE: Spiral scan was obtained through the chest, abdomen and pelvis during injection of nonionic iodinated intravenous contrast. Sagittal and coronal reformatted images are also submitted. One of the following dose optimization techniques was utilized in the performance of this exam: Automated exposure control; adjustment of the mA and/ or kV according to the patient's size; or use of an iterative reconstruction technique. Specific details can be referenced in the facility's radiology CT exam operational policy. CONTRAST: 75 mL of IV Isovue-[id number]. COMPARISON: CT of the abdomen pelvis on 03/07/2017. FINDINGS: Poor contrast enhancement. CT THORAX: Lungs / pleura: Lungs show dependent atelectasis. No focal consolidations, pleural effusion or pneumothorax. No discrete nodule or focal interstitial opacities. Airways are clear. Mediastinum / jaquan: No enlarged lymph nodes with a few small lymph nodes. No abnormal density. Heart / pericardium: Heart is normal size. Small amount of pericardial fluid is present. Pacing wires are in place. Vessels: Motion artifact. Poor opacification the vessels. No indication of aneurysm or discrete dissection of the aorta. The pulmonary arteries are grossly normal. Musculoskeletal / Body wall: Motion artifact. No discrete acute fracture. No erosive bony lesions. Rightward convexity of the lower thoracic spine. Stable compression the T12 vertebral body. Degenerative changes of the thoracic spine are mild. The chest wall shows no enlarged axillary lymph nodes or masses. CT ABDOMEN AND PELVIS: Poor opacification/enhancement of the structures. Liver / biliary: No focal normality to liver. Status post cholecystectomy. The biliary system is unremarkable. Pancreas: No focal abnormality. Spleen: No focal abnormality. Adrenal glands: Negative. Kidneys: Both kidneys do show several stones in the collecting system, 4 mm and less. No hydronephrosis. No discrete renal lesions. Pelvic structures: Pelvic structures visualized within normal limits. Bowel: Prominent stool seen in the rectosigmoid colon without focal abnormality. The signal colon is decompressed without focal normality. The remaining colon shows no focal normality with some stool in colon. The appendix is not definitely visualized. The small bowel shows no focal normality or obstruction. Stomach is unremarkable. Peritoneum / retroperitoneum / mesenteries: No free air, free fluid, fluid collections or areas of inflammation. Small moderate right paracentral ventral hernia just above the umbilicus containing only fat. Tiny umbilical hernia containing fat. Vessels: Negative. Musculoskeletal / Body wall: No acute fractures or aggressive bony lesions. Degenerative changes spine. Leftward convexity lumbar spine. Lymph node assessment: Negative. IMPRESSION: 1. No discrete indication of acute abnormality or traumatic injury to the chest , abdomen or pelvis. 2. Minimal pericardial fluid. 3. Prominent stool seen in the rectosigmoid colon without focal abnormality. 4. Nonobstructing bilateral renal calculi. 5. Other chronic findings as above. 6 report contrast enhancement on this exam. 6. Poor contrast enhancement on this exam. CT Head without contrast and CT Cervical spine: Indication: Trauma. Comparison: 04/20/2017. Technique: CT head: Axial CT images were obtained through the brain from the skull base to the vertex without administration of IV contrast. Reformatted coronal and sagittal images were also obtained. Technique: CT cervical spine: Axial CT imaging of the cervical spine was performed. 2-D sagittal and coronal CT reformats were also obtained. One of the following dose optimization techniques was utilized in the performance of this exam: Automated exposure control; adjustment of the mA and/ or kV according to the patient's size; or use of an iterative reconstruction technique. Specific details can be referenced in the facility's radiology CT exam operational policy. FINDINGS: CT head: No intracranial bleed, midline shift, mass affect, extra-axial fluid collection or hydrocephalus. Age-related cerebral atrophy. Periventricular white white matter ischemic changes consistent small vessel disease. 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 Sethi/white matter differentiation appears normal. There is again a enlarged cisterna magna which is stable. Bony structures show no fractures or lesions. Leftward deviation nasal septum. The sinuses and mastoids visualized are clear. CT cervical spine: There is a chronic posterior mild spinal listhesis of C2 over C3 due to degenerative changes in the previous fusion of C3-C6 without sequelae. Anterior plates and screws are in place. Minimal anterior spinal listhesis of C7 over T1 due to facet arthropathy. The remaining vertebral bodies are aligned. No acute fracture or facet dislocation. No bony lesions. There is diffuse degenerative changes which is significant C2-3 level including disc space narrowing, endplate changes, osteophytes and facet arthropathy. No bony canal stenosis. There are some neural foraminal narrowing seen at multiple levels. The endplates appear maintained. Prevertebral soft tissues and surrounding soft tissues are unremarkable. Lung apices are clear. IMPRESSION: 1. No acute intracranial abnormality. 2. No acute osseous or acute alignment abnormality of the cervical spine. Post surgical fusion without sequelae. Degenerative changes as above. CT Head without contrast and CT Cervical spine: Indication: Trauma. Comparison: 04/20/2017. Technique: CT head: Axial CT images were obtained through the brain from the skull base to the vertex without administration of IV contrast. Reformatted coronal and sagittal images were also obtained. Technique: CT cervical spine: Axial CT imaging of the cervical spine was performed. 2-D sagittal and coronal CT reformats were also obtained. One of the following dose optimization techniques was utilized in the performance of this exam: Automated exposure control; adjustment of the mA and/ or kV according to the patient's size; or use of an iterative reconstruction technique. Specific details can be referenced in the facility's radiology CT exam operational policy. FINDINGS: CT head: No intracranial bleed, midline shift, mass affect, extra-axial fluid collection or hydrocephalus. Age-related cerebral atrophy. Periventricular white white matter ischemic changes consistent small vessel disease. 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 Sethi/white matter differentiation appears normal. There is again a enlarged cisterna magna which is stable. Bony structures show no fractures or lesions. Leftward deviation nasal septum. The sinuses and mastoids visualized are clear. CT cervical spine: There is a chronic posterior mild spinal listhesis of C2 over C3 due to degenerative changes in the previous fusion of C3-C6 without sequelae. Anterior plates and screws are in place. Minimal anterior spinal listhesis of C7 over T1 due to facet arthropathy. The remaining vertebral bodies are aligned. No acute fracture or facet dislocation. No bony lesions. There is diffuse degenerative changes which is significant C2-3 level including disc space narrowing, endplate changes, osteophytes and facet arthropathy. No bony canal stenosis. There are some neural foraminal narrowing seen at multiple levels. The endplates appear maintained. Prevertebral soft tissues and surrounding soft tissues are unremarkable. Lung apices are clear. IMPRESSION: 1. No acute intracranial abnormality. 2. No acute osseous or acute alignment abnormality of the cervical spine. Post surgical fusion without sequelae. Degenerative changes as above. ED Course/Re-evaluation ED Course Patient is a 57-year-old male here status post fall which was unwitnessed. senior care staff reports that the patient was found in the kitchen floor leading from his nostrils, confused. At baseline, the patient reportedly is able to speak however has an intellectual disability at baseline. They report that the patient is more confused than normal. Patient is agitated and attempting to crawl out of bed. He was given olanzapine due to agitation. CT imaging of the head and C-spine, Chest/abd/pelvis were completed and showed no acute fractures or infectious etiologies. Patient initially was noted to have a lactate of 6.6 however this cleared to 1.5 on repeat lab finding. Patient was noted to have a white blood cell count of 14,000 with no signs of left shift or fever. Urinalysis showed no signs of infection though he was noted to have acute kidney injury. Patient received tetanus booster, fluid resuscitation. Due to the patient's acute change in mental status and lab abnormalities, I discussed the patient with Dr. Yanez who accepted the patient to the hospitalist service for further treatment optimization. Patient was stable at time of admission. Decision to Disposition Date: Oct 28, 2017 Decision to Disposition Time: 13:00 Depart Departure Latest Vital Signs Vital Signs Date Time Temp Pulse Resp B/P (MAP) Pulse Ox O2 Delivery O2 Flow Rate FiO2 10/28/17 13:45 85 95 10/28/17 13:30 107/76 (86) 10/28/17 10:13 97.7 22 Room Air Impression: Primary Impression: Head trauma Additional Impressions: Elevated WBC count Altered mental status Condition: Improved Disposition: Admitted from ER Problem Qualifiers Additional Impressions: Elevated WBC count Leukocytosis type: lymphocytosis Qualified Codes: D72.820 - Lymphocytosis ( symptomatic) DAYNE BRENNAN DO Oct 28, 2017 10:25
[2017-10-28] MEDS ORDERED: OLANZapine 10 MG VIAL IM ONLY ONE (10:30)
[2017-10-28] MEDS ORDERED: WATER STERILE 10 ML VIAL IM ONLY ONE (10:30)
[2017-10-28 10:41] LABS: PLATELET COUNT, AUTOMATED 399 K/uL (150-450)
[2017-10-28 10:44] LABS: INR 0.99
[2017-10-28] MEDS ORDERED: DULO30CA6 PO (10:54)
[2017-10-28] MEDS ORDERED: ALEN70TA43 PO (10:54)
[2017-10-28] MEDS ORDERED: LOSA25TA50 PO (10:54)
[2017-10-28] MEDS ORDERED: MELA3TAB31 PO (10:54)
[2017-10-28] MEDS ORDERED: IOPAMIDOL 76% 75 ML INFUS BTL 75 ML ONE (10:58)
[2017-10-28] MEDS ORDERED: NS(*) 0.9% 1000 ML BAG 1,000 ML IV ONE (11:00)
--- NOTE | 2017-10-28 12:14 | RADIOLOGY IMAGING REPORT ---
FACILITY: [facility] PATIENT NAME: Zechariah Worley : 1960 MR: [id number] V: [id number] EXAM DATE: ORDERING PHYSICIAN: DAYNE BRENNAN TECHNOLOGIST: Location: [facility] Patient: Zechariah Worley : 1960 Visit/Account:[id number] Date of Sevice: 10/28/2017 CT Head without contrast and CT Cervical spine: Indication: Trauma. Comparison: 04/20/2017. Technique: CT head: Axial CT images were obtained through the brain from the skull base to the verte x without administration of IV contrast. Reformatted coronal and sagittal images were also obtained. Technique: CT cervical spine: Axial CT imaging of the cervical spine was performed. 2-D sagittal and coronal CT reformats were also obtained. One of the following dose optimization techniques was utilized in the performance of this exam: Autom ated exposure control; adjustment of the mA and/or kV according to the patient's size; or use of an i terative reconstruction technique. Specific details can be referenced in the facility's radiology C T exam operational policy. FINDINGS: CT head: No intracranial bleed, midline shift, mass affect, extra-axial fluid collection or hydrocephalus. Age -related cerebral atrophy. Periventricular white white matter ischemic changes consistent small vesse l disease. 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 Sethi/white matter differentiation appears normal. There is again a enlarged cisterna magn a which is stable. Bony structures show no fractures or lesions. Leftward deviation nasal septum. The sinuses and mastoids visualized are clear. CT cervical spine: There is a chronic posterior mild spinal listhesis of C2 over C3 due to degenerative changes in the p revious fusion of C3-C6 without sequelae. Anterior plates and screws are in place. Minimal anterior s erasmo listhesis of C7 over T1 due to facet arthropathy. The remaining vertebral bodies are aligned. N o acute fracture or facet dislocation. No bony lesions. There is diffuse degenerative changes which i s significant C2-3 level including disc space narrowing, endplate changes, osteophytes and facet arth ropathy. No bony canal stenosis. There are some neural foraminal narrowing seen at multiple levels. T he endplates appear maintained. Prevertebral soft tissues and surrounding soft tissues are unremarkab le. Lung apices are clear. IMPRESSION: 1. No acute intracranial abnormality. 2. No acute osseous or acute alignment abnormality of the cervical spine. Post surgical fusion withou t sequelae. Degenerative changes as above. Report Dictated By: Perry Contreras at 10/28/2017 11:54 AM Report E-Signed By: Perry Contreras at 10/28/2017 12:10 PM WSN:[id number]
--- NOTE | 2017-10-28 12:14 | RADIOLOGY IMAGING REPORT ---
FACILITY: [facility] PATIENT NAME: Zechariah Worley : 1960 MR: [id number] V: [id number] EXAM DATE: ORDERING PHYSICIAN: DAYNE BRENNAN TECHNOLOGIST: Location: [facility] Patient: Zechariah Worley : 1960 Visit/Account:[id number] Date of Sevice: 10/28/2017 CT Head without contrast and CT Cervical spine: Indication: Trauma. Comparison: 04/20/2017. Technique: CT head: Axial CT images were obtained through the brain from the skull base to the verte x without administration of IV contrast. Reformatted coronal and sagittal images were also obtained. Technique: CT cervical spine: Axial CT imaging of the cervical spine was performed. 2-D sagittal and coronal CT reformats were also obtained. One of the following dose optimization techniques was utilized in the performance of this exam: Autom ated exposure control; adjustment of the mA and/or kV according to the patient's size; or use of an i terative reconstruction technique. Specific details can be referenced in the facility's radiology C T exam operational policy. FINDINGS: CT head: No intracranial bleed, midline shift, mass affect, extra-axial fluid collection or hydrocephalus. Age -related cerebral atrophy. Periventricular white white matter ischemic changes consistent small vesse l disease. 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 Sethi/white matter differentiation appears normal. There is again a enlarged cisterna magn a which is stable. Bony structures show no fractures or lesions. Leftward deviation nasal septum. The sinuses and mastoids visualized are clear. CT cervical spine: There is a chronic posterior mild spinal listhesis of C2 over C3 due to degenerative changes in the p revious fusion of C3-C6 without sequelae. Anterior plates and screws are in place. Minimal anterior s erasmo listhesis of C7 over T1 due to facet arthropathy. The remaining vertebral bodies are aligned. N o acute fracture or facet dislocation. No bony lesions. There is diffuse degenerative changes which i s significant C2-3 level including disc space narrowing, endplate changes, osteophytes and facet arth ropathy. No bony canal stenosis. There are some neural foraminal narrowing seen at multiple levels. T he endplates appear maintained. Prevertebral soft tissues and surrounding soft tissues are unremarkab le. Lung apices are clear. IMPRESSION: 1. No acute intracranial abnormality. 2. No acute osseous or acute alignment abnormality of the cervical spine. Post surgical fusion withou t sequelae. Degenerative changes as above. Report Dictated By: Perry Contreras at 10/28/2017 11:54 AM Report E-Signed By: Perry Contreras at 10/28/2017 12:10 PM WSN:[id number]
--- NOTE | 2017-10-28 13:13 | RADIOLOGY IMAGING REPORT ---
FACILITY: [facility] PATIENT NAME: Zechariah Worley : 1960 MR: [id number] V: [id number] EXAM DATE: ORDERING PHYSICIAN: DAYNE BRENNAN TECHNOLOGIST: Location: [facility] Patient: Zechariah Worley : 1960 Visit/Account:[id number] Date of Sevice: 10/28/2017 EXAMINATION: CT chest with IV contrast CT abdomen with IV contrast CT pelvis with IV contrast HISTORY: Trauma. Fall. TECHNIQUE: Spiral scan was obtained through the chest, abdomen and pelvis during injection of nonio jame iodinated intravenous contrast. Sagittal and coronal reformatted images are also submitted. One of the following dose optimization techniques was utilized in the performance of this exam: Autom ated exposure control; adjustment of the mA and/or kV according to the patient's size; or use of an i terative reconstruction technique. Specific details can be referenced in the facility's radiology C T exam operational policy. CONTRAST: 75 mL of IV Isovue-370. COMPARISON: CT of the abdomen pelvis on 03/07/2017. FINDINGS: Poor contrast enhancement. CT THORAX: Lungs / pleura: Lungs show dependent atelectasis. No focal consolidations, pleural effusion or pneum othorax. No discrete nodule or focal interstitial opacities. Airways are clear. Mediastinum / jaquan: No enlarged lymph nodes with a few small lymph nodes. No abnormal density. Heart / pericardium: Heart is normal size. Small amount of pericardial fluid is present. Pacing wire s are in place. Vessels: Motion artifact. Poor opacification the vessels. No indication of aneurysm or discrete diss ection of the aorta. The pulmonary arteries are grossly normal. Musculoskeletal / Body wall: Motion artifact. No discrete acute fracture. No erosive bony lesions. R ightward convexity of the lower thoracic spine. Stable compression the T12 vertebral body. Degenerati ve changes of the thoracic spine are mild. The chest wall shows no enlarged axillary lymph nodes or m asses. CT ABDOMEN AND PELVIS: Poor opacification/enhancement of the structures. Liver / biliary: No focal normality to liver. Status post cholecystectomy. The biliary system is unre markable. Pancreas: No focal abnormality. Spleen: No focal abnormality. Adrenal glands: Negative. Kidneys: Both kidneys do show several stones in the collecting system, 4 mm and less. No hydronephros is. No discrete renal lesions. Pelvic structures: Pelvic structures visualized within normal limits. Bowel: Prominent stool seen in the rectosigmoid colon without focal abnormality. The signal colon is decompressed without focal normality. The remaining colon shows no focal normality with some stool in colon. The appendix is not definitely visualized. The small bowel shows no focal normality or obstru ction. Stomach is unremarkable. Peritoneum / retroperitoneum / mesenteries: No free air, free fluid, fluid collections or areas of in flammation. Small moderate right paracentral ventral hernia just above the umbilicus containing only fat. Tiny umbilical hernia containing fat. Vessels: Negative. Musculoskeletal / Body wall: No acute fractures or aggressive bony lesions. Degenerative changes spin e. Leftward convexity lumbar spine. Lymph node assessment: Negative. IMPRESSION: 1. No discrete indication of acute abnormality or traumatic injury to the chest, abdomen or pelvis. 2. Minimal pericardial fluid. 3. Prominent stool seen in the rectosigmoid colon without focal abnormality. 4. Nonobstructing bilateral renal calculi. 5. Other chronic findings as above. 6 report contrast enhancement on this exam. 6. Poor contrast enhancement on this exam. Report Dictated By: Perry Contreras at 10/28/2017 12:54 PM Report E-Signed By: Perry Contreras at 10/28/2017 1:09 PM WSN:[id number]
[2017-10-28 15:21] VITALS: BP 100/53
[2017-10-28] MEDS ORDERED: INFLUENZA VIRUS VAC 0.5 ML SYR IM ONLY ONE (15:35)
[2017-10-28] MEDS ORDERED: LEVO75TA73 PO (15:39)
[2017-10-28] MEDS ORDERED: CALC625T65 PO (15:39)
[2017-10-28] MEDS ORDERED: EMOL454O TP (15:39)
[2017-10-28] MEDS ORDERED: LOPE2CAP15 PO (15:50)
[2017-10-28] MEDS ORDERED: CALC1TAB24 PO (15:50)
[2017-10-28] MEDS ORDERED: METR45CR9 TP (15:50)
[2017-10-28] MEDS ORDERED: COAL130S5 TP (15:50)
[2017-10-28] MEDS ORDERED: EYEL1MED TP (15:50)
[2017-10-28] MEDS ORDERED: ACET-2146 PO (15:50)
[2017-10-28] MEDS ORDERED: HYDR28GE3 TP (15:56)
[2017-10-28] MEDS ORDERED: BACI1OIN6 TP (15:56)
[2017-10-28] MEDS ORDERED: GUAI-244 PO (15:56)
[2017-10-28] MEDS ORDERED: TRIA15OI20 TP (15:56)
[2017-10-28] MEDS ORDERED: ACETAMINOPHEN 500 MG TAB PO PRN (16:30)
[2017-10-28] MEDS: NS(*) 0.9% 1000 ML BAG 1,000 ML IV PRN (16:46)
[2017-10-28] MEDS: ALLOPURINOL 300 MG TAB PO SCH (16:46)
--- NOTE | 2017-10-28 17:06 | History & Physical ---
History of Present Illness Chief Complaint The patient is a 57 year old male [facility] client who was brought to ER after being found down at home earlier today. History of Present Illness The patient has Down's syndrome and history is obtained from his [facility] caretakers , his care records and ER physician. A pick pack worker apparently heard a "thud" at the patient's skilled nursing this am and found the patient face-down on the floor. There was a report from a roommate that he may have been "shaking". The patient was brought to [facility] ER and was initially confused and agitated. Per his caretakers, he had been more confused this morning at home as well. Review of his care notes reveals that he has dementia and has seen Dr. Sifuentes for this. It has been progressive and it was felt that medications would likely not help. He has been more forgetful at home and more confused overall. He has been noted not to be able to find his bathroom at home. Apparently yesterday he was in his usual state of health. Caretakers deny recent URI symptoms or other acute issues. In the ER, the patient was noted to have an elevated WBC at 14,000. His initial lactate was 6.6 but normalized to 1.5 after [address] of the head, cervical spine, chest, abdomen and pelvis were unremarkable for acute issues except for prominence of stool in his rectosigmoid colon. Initially, he apparently required 4 people to keep him from crawling out of bed in the ER. He received a dose of olanzapine 10mg IM for confusion and agitation in the ER. History Problems: (1) Low blood pressure Status: Chronic (2) Heart murmur Status: Chronic (3) Scoliosis Status: Chronic (4) Hearing loss Status: Chronic (5) Gout Status: Chronic (6) Nephrolithiasis Status: Chronic (7) Elevated MCV Status: Chronic (8) Hx of lithotripsy Status: Resolved (9) S/P hernia repair Status: Resolved (10) S/P cholecystectomy Status: Resolved (11) S/P appy Status: Resolved (12) S/P cervical spinal fusion Status: Resolved (13) History of permanent cardiac pacemaker placement Status: Chronic (14) Cardiac arrhythmia Status: Chronic (15) Atrial septal defect Status: Chronic (16) Pulmonary HTN Status: Chronic (17) GERD (gastroesophageal reflux disease) Status: Chronic (18) History of seizure Status: Chronic (19) Lymphocytosis Status: Chronic Home Meds Reported Medications Triamcinolone Acetonide 0.1% Oint 15 Gm Tube (TRIAMCINOLONE ACETONIDE 0.1% 15 GM TUBE) 15 Gm Oint...g., 1 APPLIC TP PRN, TUBE 10/28/17 Guaifenesin (ROBAFEN) 100 Mg/5 Ml Liquid, 5-10 ML PO PRN Y for COUGH 10/28/17 Hydrocortisone (CORTIZONE 10) 28 Gm Gel..gram., 1 APPLIC TP PRN 10/28/17 Bacitracin Zinc (Bacitracin Zinc) 1 Each Oint..ea., 1 APPLIC TP PRN 10/28/17 Loperamide HCl (Imodium A-D) 2 Mg Capsule, 2 TAB PO PRN Y for DIARRHEA 2 tabs after 2 watery stools 10/28/17 Calcium Carbonate/Mag Hydrox (ANTACID CHEWABLE TABLET) 1 Each Tab.chew, 2 TAB PO PRN, TAB.CHEW 10/28/17 Acetaminophen 500 Mg Tab (ACETAMINOPHEN EXTRA STRENGTH) 500 Mg Tablet, 2 TAB PO Q4-6H Y for PAIN, TAB 10/28/17 Maury Tar (T-Gel) 0.5 % Shampoo, 1 FREDDY TP 3XW 10/28/17 Eyelid Cleanser Combination #5 (OCUSOFT LID SCRUB) 1 Each Med..pad, 1 EACH TP BID 10/28/17 Metronidazole (METRONIDAZOLE) 45 Gm Cream..g., 1 APPLIC TP HS 0.75% cream 10/28/17 Levothyroxine Sodium (LEVOTHYROXINE SODIUM) 75 Mcg Tablet, 75 MCG PO QDAY, TAB 10/28/17 Emollient Combination No.97 (Aquaphilic) 454 Gm Oint...g., 1 APPLIC TP BID 10/28/17 Calcium Polycarbophil (FIBER-LAX) 625 Mg Tablet, 1 TAB PO BID 10/28/17 Melatonin (MELATONIN) 3 Mg Tablet, 3 MG PO QHS 10/28/17 Losartan Potassium (LOSARTAN POTASSIUM) 25 Mg Tablet, 25 MG PO QDAY 10/28/17 Duloxetine HCl (Duloxetine HCl) 30 Mg Capsule.dr, 1 CAP PO DAILY 10/28/17 Alendronate Sodium (FOSAMAX) 70 Mg Tablet, 70 MG PO QWK, TAB 10/28/17 Folic Acid (FOLIC ACID) 1 Mg Tablet, 1 MG PO QDAY, TAB 02/10/17 Cholecalciferol (Vitamin D3) (VITAMIN D3) 1,000 Unit Tablet, 1000 UNIT PO QPM, TAB 02/10/17 Cyanocobalamin (Vitamin B-12) (VITAMIN B-12) 1,000 Mcg Tablet, 1000 MCG PO 2XW 02/10/17 Tamsulosin Hcl (Flomax) 0.4 Mg Cap, 0.4 MG PO QDAY, #30 0 Refills 05/26/11 Docosahexanoic Acid/Epa (Fish Oil 1,000 Mg Capsule) 1 Cap Capsule, 1 CAP PO BID , 0 Refills 05/24/11 Lorazepam (Ativan) 0.5 Mg Tab, 0.5 MG PO Q8H Y, 0 Refills 04/12/11 Multivitamins W-Minerals (Multiple Vitamin) 1 Tab Tablet, 1 TAB PO DAILY, 0 Refills 04/12/11 Allopurinol (Zyloprim) 300 Mg Tab, 300 MG PO QPM, 0 Refills 04/12/11 Calcium Carbonate/Vitamin D3 (Calcium + D Tablet) 1 Udtab Tablet, 1 TAB PO TID, 0 Refills Calcium 600mg/Vit D 400mg 04/12/11 Esomeprazole Mag Trihydrate (Nexium) 40 Mg Capsule.dr, 40 MG PO QDAY, 0 Refills 04/12/11 Levothyroxine Sodium (Synthroid) 50 Mcg Tablet, 50 MCG PO DAILY, 0 Refills 04/12/11 Discontinued Reported Medications [Zulay Bruno] No Conflict Check, TP BID, 0 Refills 05/24/11 Metronidazole/Skin Cleanser (Metrogel 1% Kit) 1 Ea Combo..pkg, 1 EA TP DAILY, 0 Refills 05/24/11 Fluoxetine Hcl (Prozac) 40 Mg Capsule, 40 MG PO QDAY, #20 0 Refills 04/12/11 Fiber (Fiber) 1 Tab.chew Tab.chew, 1 TAB.CHEW PO BID, 0 Refills 04/12/11 Allergies: Uncoded Allergies: AVOID NSAIDS (Adverse Reaction, Unknown, 11/23/11) Other Social/Family Hx The patient lives at an [facility] skilled nursing. His parents are both but cause of is not listed in his records. He does not use tobacco products or drink alcohol. Hx Smoking: No Exposure to Second Hand Smoke?: No Caffeine Intake: Soda Caffeine/Cups Per Day: OCC Hx Alcohol Use: No Hx Substance Use Disorder: No History of IV Drug Use: No Review of Systems Constitutional: No Fever Neurological: Syncope (Versus seizure.) Eyes: Other (Wears glasses.) ENT: Hearing Loss Cardiovascular: No Chest Pain Respiratory: No Shortness of Breath, No Cough Gastrointestinal: No Nausea, No Vomiting Genitourinary: No Dysuria Musculoskeletal: Pain (Hit nose with fall. ) Psychiatric: Depression Exam Vital Signs Vital Signs Date Time Temp Pulse Resp B/P (MAP) Pulse Ox O2 Delivery O2 Flow Rate FiO2 10/28/17 15:21 95 Room Air 10/28/17 15:21 97.6 72 12 100/53 (69) General Appearance: Alert, Awake, No Acute Distress Neuro: Other (Answers questions appropriately.) Eyes: PERRLA ENT: Other (Blood in nares and around mouth. ) Cardiovascular: Regular Rate and Rhythm, No Edema Respiratory: Clear to Auscultation GI: Abd Soft and Non-Tender Extremities: Warm, Perfused, Other (No edema.) Integumentary: Scaly / Dry Skin Psych: Appropriate Mood & Affect Medical Decision Making Data Points Result Diagram: 10/28/17 1020 10/28/17 1020 Item Value Date Time Neutrophils % (Manual) 30 % L 10/28/17 1020 Lymphocytes % (Manual) 31 % 10/28/17 1020 Atypical Lymphocytes % 34 % 10/28/17 1020 Monocytes % (Manual) 2 % L 10/28/17 1020 Eosinophils % (Manual) 1 % 10/28/17 1020 Basophils % (Manual) 2 % H 10/28/17 1020 Macrocytosis 1+ 10/28/17 1020 Lactate 6.6 mmol/L *H 10/28/17 1020 Lactate 1.5 mmol/L 10/28/17 1346 Calcium Level 9.7 mg/dl 10/28/17 1020 Total Bilirubin 0.5 mg/dl 10/28/17 1020 Aspartate Amino Transf (AST/SGOT) 43 U/L H 10/28/17 1020 Alanine Aminotransferase (ALT/SGPT) 28 U/L 10/28/17 1020 Alkaline Phosphatase 59 U/L 10/28/17 1020 Total Protein 7.6 g/dl 10/28/17 1020 Albumin 4.2 g/dl 10/28/17 1020 Lipase 74 U/L 10/28/17 1020 Urine Color Yellow 10/28/17 1333 Urine Clarity Clear 10/28/17 1333 Urine pH 6.0 pH 10/28/17 1333 Urine Specific [place] 1.008 10/28/17 1333 Urine Protein Negative mg/dL 10/28/17 1333 Urine Glucose (UA) Negative mg/dL 10/28/17 1333 Urine Ketones Negative mg/dL 10/28/17 1333 Urine Blood Negative 10/28/17 1333 Urine Nitrite Negative 10/28/17 1333 Urine Bilirubin Negative 10/28/17 1333 Urine Urobilinogen Negative mg/dL 10/28/17 1333 Urine Leukocyte Esterase Negative 10/28/17 1333 Urine RBC <1 /HPF 10/28/17 1333 Urine WBC 1 /HPF 10/28/17 1333 Urine Squamous Epithelial Cells None /LPF 10/28/17 1333 Urine Bacteria Few /HPF 10/28/17 1333 Urine Hyaline Casts Few /LPF 10/28/17 1333 Urine Mucus None /HPF 10/28/17 1333 Prothrombin Time 13.0 seconds 10/28/17 1020 Prothromb Time International Ratio 0.99 10/28/17 1020 Activated Partial Thromboplast Time 27 seconds 10/28/17 1020 EKG / Imaging Imaging [place] [facility] [place] NAME: Zechariah Worley : 1960 MR: [id number] V: [id number] EXAM DATE: ORDERING PHYSICIAN: DAYNE BRENNAN TECHNOLOGIST: Location: [facility] Patient: Zechariah Worley : 1960 Visit/Account:[id number] Date of Sevice: 10/28/2017 CT Head without contrast and CT Cervical spine: Indication: Trauma. Comparison: 04/20/2017. Technique: CT head: Axial CT images were obtained through the brain from the skull base to the vertex without administration of IV contrast. Reformatted coronal and sagittal images were also obtained. Technique: CT cervical spine: Axial CT imaging of the cervical spine was performed. 2-D sagittal and coronal CT reformats were also obtained. One of the following dose optimization techniques was utilized in the performance of this exam: Automated exposure control; adjustment of the mA and/ or kV according to the patient's size; or use of an iterative reconstruction technique. Specific details can be referenced in the facility's radiology CT exam operational policy. FINDINGS: CT head: No intracranial bleed, midline shift, mass affect, extra-axial fluid collection or hydrocephalus. Age-related cerebral atrophy. Periventricular white white matter ischemic changes consistent small vessel disease. 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 Sethi/white matter differentiation appears normal. There is again a enlarged cisterna magna which is stable. Bony structures show no fractures or lesions. Leftward deviation nasal septum. The sinuses and mastoids visualized are clear. CT cervical spine: There is a chronic posterior mild spinal listhesis of C2 over C3 due to degenerative changes in the previous fusion of C3-C6 without sequelae. Anterior plates and screws are in place. Minimal anterior spinal listhesis of C7 over T1 due to facet arthropathy. The remaining vertebral bodies are aligned. No acute fracture or facet dislocation. No bony lesions. There is diffuse degenerative changes which is significant C2-3 level including disc space narrowing, endplate changes, osteophytes and facet arthropathy. No bony canal stenosis. There are some neural foraminal narrowing seen at multiple levels. The endplates appear maintained. Prevertebral soft tissues and surrounding soft tissues are unremarkable. Lung apices are clear. IMPRESSION: 1. No acute intracranial abnormality. 2. No acute osseous or acute alignment abnormality of the cervical spine. Post surgical fusion without sequelae. Degenerative changes as above. Report Dictated By: Perry Contreras at 10/28/2017 11:54 AM Report E-Signed By: Perry Contreras at 10/28/2017 12:10 PM WSN:[id number] [place] [facility] [place] NAME: Zechariah Worley : 1960 MR: [id number] V: [id number] EXAM DATE: ORDERING PHYSICIAN: DAYNE BRENNAN TECHNOLOGIST: Location: [facility] Patient: Zechariah Worley : 1960 Visit/Account:[id number] Date of Sevice: 10/28/2017 EXAMINATION: CT chest with IV contrast CT abdomen with IV contrast CT pelvis with IV contrast HISTORY: Trauma. Fall. TECHNIQUE: Spiral scan was obtained through the chest, abdomen and pelvis during injection of nonionic iodinated intravenous contrast. Sagittal and coronal reformatted images are also submitted. One of the following dose optimization techniques was utilized in the performance of this exam: Automated exposure control; adjustment of the mA and/ or kV according to the patient's size; or use of an iterative reconstruction technique. Specific details can be referenced in the facility's radiology CT exam operational policy. CONTRAST: 75 mL of IV Isovue-370. COMPARISON: CT of the abdomen pelvis on 03/07/2017. FINDINGS: Poor contrast enhancement. CT THORAX: Lungs / pleura: Lungs show dependent atelectasis. No focal consolidations, pleural effusion or pneumothorax. No discrete nodule or focal interstitial opacities. Airways are clear. Mediastinum / jaquan: No enlarged lymph nodes with a few small lymph nodes. No abnormal density. Heart / pericardium: Heart is normal size. Small amount of pericardial fluid is present. Pacing wires are in place. Vessels: Motion artifact. Poor opacification the vessels. No indication of aneurysm or discrete dissection of the aorta. The pulmonary arteries are grossly normal. Musculoskeletal / Body wall: Motion artifact. No discrete acute fracture. No erosive bony lesions. Rightward convexity of the lower thoracic spine. Stable compression the T12 vertebral body. Degenerative changes of the thoracic spine are mild. The chest wall shows no enlarged axillary lymph nodes or masses. CT ABDOMEN AND PELVIS: Poor opacification/enhancement of the structures. Liver / biliary: No focal normality to liver. Status post cholecystectomy. The biliary system is unremarkable. Pancreas: No focal abnormality. Spleen: No focal abnormality. Adrenal glands: Negative. Kidneys: Both kidneys do show several stones in the collecting system, 4 mm and less. No hydronephrosis. No discrete renal lesions. Pelvic structures: Pelvic structures visualized within normal limits. Bowel: Prominent stool seen in the rectosigmoid colon without focal abnormality. The signal colon is decompressed without focal normality. The remaining colon shows no focal normality with some stool in colon. The appendix is not definitely visualized. The small bowel shows no focal normality or obstruction. Stomach is unremarkable. Peritoneum / retroperitoneum / mesenteries: No free air, free fluid, fluid collections or areas of inflammation. Small moderate right paracentral ventral hernia just above the umbilicus containing only fat. Tiny umbilical hernia containing fat. Vessels: Negative. Musculoskeletal / Body wall: No acute fractures or aggressive bony lesions. Degenerative changes spine. Leftward convexity lumbar spine. Lymph node assessment: Negative. IMPRESSION: 1. No discrete indication of acute abnormality or traumatic injury to the chest , abdomen or pelvis. 2. Minimal pericardial fluid. 3. Prominent stool seen in the rectosigmoid colon without focal abnormality. 4. Nonobstructing bilateral renal calculi. 5. Other chronic findings as above. 6 report contrast enhancement on this exam. 6. Poor contrast enhancement on this exam. Report Dictated By: Perry Contreras at 10/28/2017 12:54 PM Report E-Signed By: Perry Contreras at 10/28/2017 1:09 PM WSN:[id number] Pre-Admit Course ED Medications NS, olanzapine 10mg IM, TD booster. Medical Record Review: Yes Assessment and Plan Problems: (1) Seizure Status: Acute Assessment & Plan: The patient may have had a seizure based on his high lactate on admission which quickly normalized and elevated WBC. A roommate reported the patient was shaking but may not be a reliable historian. He was also confused and agitated upon presentation to the ER. He is not currently on seizure medications. Will admit, place on seizure precautions and monitor. (2) Elevated WBC count Status: Acute Assessment & Plan: Likely due to above. Will repeat a CBC in the am. (3) Head trauma Status: Acute Assessment & Plan: CT of head and c-spine negative. Will monitor. (4) GERD (gastroesophageal reflux disease) Status: Chronic Assessment & Plan: The patient takes Nexium at home. Will place on pantoprazole here. (5) Lymphocytosis Status: Chronic Assessment & Plan: The patient is followed by Dr. Garcia. Work up has been negative for leukemia or lymphoma. (6) Elevated MCV Status: Chronic Assessment & Plan: Work up by Dr. Garcia has been unremarkable. (7) Atrial septal defect Status: Chronic Assessment & Plan: The patient does have a fixed split S2 on exam. (8) Cardiac arrhythmia Status: Chronic Assessment & Plan: The patient has a cardiac pacemaker in place. A recent pacer check revealed no abnormalities per his care notes. (9) Gout Status: Chronic Assessment & Plan: Continue allopurinol. (10) Low blood pressure Status: Chronic Assessment & Plan: Will hold lisinopril. There are reports of low BPs in his care notes as well. Monitor BPs. Restart lisinopril only if warranted. Time Spent on Plan of Care: < 30 min Copies to: [employer] MA[employer]GER Venous Thromboembolism Antithrombotics Is Pt On Any Antithrombotics?: No Prophylaxis Tx Contraindicated Pharmacological Contraindicati: Medical Contraindication (Recent head trauma.) Mechanical Contraindications: Pt at Low Risk for VTE (He would not tolerate SCDs.) Exam Sepsis Risk: No Definite Risk Problem Qualifiers (1) Elevated WBC count: Leukocytosis type: lymphocytosis Qualified Codes: D72.820 - Lymphocytosis ( symptomatic) ISRA DUEÑAS MD Oct 28, 2017 17:05
[2017-10-28 20:01] VITALS: BP 118/70
[2017-10-28] MEDS: MELATONIN 3 MG TAB PO SCH (21:00)
[2017-10-28 23:49] VITALS: BP 108/67
[2017-10-29 03:27] VITALS: BP 122/68
[2017-10-29] MEDS: NS(*) 0.9% 1000 ML BAG 1,000 ML IV PRN ×2 (05:04→21:29)
[2017-10-29] MEDS: LEVOTHYROXINE SOD 0.125 MG TAB PO SCH (05:57)
[2017-10-29 07:06] LABS: PLATELET COUNT, AUTOMATED 307 K/uL (150-450)
[2017-10-29] MEDS ORDERED: LEVOTHYROXINE SOD 0.075 MG TAB PO SCH (09:00)
[2017-10-29] MEDS ORDERED: LEVOTHYROXINE SOD 0.05 MG TAB PO SCH (09:00)
--- NOTE | 2017-10-29 09:43 | RADIOLOGY IMAGING REPORT ---
FACILITY: [facility] PATIENT NAME: Zechariah Worley : 1960 MR: [id number] V: [id number] EXAM DATE: ORDERING PHYSICIAN: LAVERN DUEÑAS TECHNOLOGIST: Location: [facility] - [place], [place] Patient: Zechariah Worley : 1960 Visit/Account:[id number] Date of Sevice: 10/29/2017 Exam type: ANKLE 3 VIEW MIN LEFT History: left ankle pain/swelling Comparison: None. Findings: Patient is remarkably osteopenic for age. Soft tissue swelling about the ankle is noted. There appear s to be a subtle nondisplaced fracture of the distal fibula somewhat obscured by bandages. Ankle mort ise aligns appropriately. Hindfoot is unremarkable. IMPRESSION: 1. Probable subtle nondisplaced fracture of the distal fibula with significant associated soft tissue swelling. 2. Significant osteopenia for age. 3. CT imaging is available for further evaluation as indicated. Report Dictated By: Perry Bauer MD at 10/29/2017 9:37 AM Report E-Signed By: Perry Bauer MD at 10/29/2017 9:39 AM WSN:[id number]
--- NOTE | 2017-10-29 11:14 | Hospitalist Progress Note ---
Subjective Progress Notes Subjective He was sleeping when we entered and was slow to awaken. He he has left ankle pain/swelling. Physical Exam Vital Signs Date Time Temp Pulse Resp B/P (MAP) Pulse Ox O2 Delivery O2 Flow Rate FiO2 10/29/17 03:42 96 10/29/17 03:27 97.1 88 16 122/68 (86) Room Air General Appearance: Alert, Awake Neuro: No Gross deficits Eyes: Other (ecchymoses left periorbital area) ENT: Other (evidence of lip biting/some dried blood around nares) Cardiovascular: Regular Rate and Rhythm Respiratory: Clear to Auscultation Chest: No Tenderness GI: Soft and Non-Tender Extremities: Warm, Perfused, Other (Left ankle some pain reported with plantar flexion/some tenderness with pressure over distal tibia and fibula/possible small effusion) Result Diagram: 10/29/1763810/29/17638 Assessment and Plan Problems: (1) Seizure Status: Acute Assessment & Plan: It appears most likely the patient had a seizure based on the history, mental status change (post-ictal), high lactate which quickly normalized, and elevated WBC. He is not currently on seizure medications. He has not had any recurrent seizure activity since admission. Will start on Keppra 500mg PO BID. Monitor. (2) Elevated WBC count Status: Acute Assessment & Plan: Improved. Likely due to seizure. Will monitor. (3) Head trauma Status: Acute Assessment & Plan: CT of head and c-spine negative. (4) GERD (gastroesophageal reflux disease) Status: Chronic Assessment & Plan: The patient takes Nexium at home - on pantoprazole here. (5) Lymphocytosis Status: Chronic Assessment & Plan: The patient is followed by Dr. Garcia. Work up has been negative for leukemia or lymphoma. (6) Elevated MCV Status: Chronic Assessment & Plan: Work up by Dr. Garcia has been unremarkable. (7) Atrial septal defect Status: Chronic Assessment & Plan: The patient does have a fixed split S2 on exam. (8) Cardiac arrhythmia Status: Chronic Assessment & Plan: The patient has a cardiac pacemaker in place. A recent pacer check revealed no abnormalities per his care notes. (9) Gout Status: Chronic Assessment & Plan: Continue allopurinol. (10) Low blood pressure Status: Chronic Assessment & Plan: Will hold lisinopril. There are reports of low BPs in his care notes as well. Monitor BPs. Restart lisinopril only if warranted. (11) PAIN IN LEFT ANKLE AND JOINTS OF LEFT FOOT Status: Acute Assessment & Plan: He may have had an acute injury occur during yesterdays seizure. Will check x-ray and treat as needed. Exam Sepsis Risk: No Definite Risk Problem Qualifiers (1) Elevated WBC count: Leukocytosis type: lymphocytosis Qualified Codes: D72.820 - Lymphocytosis ( symptomatic) LAVERN DUEÑAS MD Oct 29, 2017 11:14
[2017-10-29] MEDS: levETIRAcetam 500 MG TAB PO SCH ×2 (12:33→21:38)
[2017-10-29] MEDS: TAMSULOSIN HCL 0.4 MG CAP PO SCH (12:33)
[2017-10-29] MEDS: DULoxetine HCL 30 MG CAPCR PO SCH (12:33)
[2017-10-29] MEDS: FOLIC ACID 1 MG TAB PO SCH (12:33)
[2017-10-29] MEDS: PANTOPRAZOLE SOD 40 MG TABEC PO SCH (12:33)
[2017-10-29 12:52] VITALS: BP 140/92
[2017-10-29] MEDS: ALLOPURINOL 300 MG TAB PO SCH (17:00)
[2017-10-29 21:38] VITALS: BP 115/68
[2017-10-29] MEDS: MELATONIN 3 MG TAB PO SCH (21:38)
[2017-10-30 00:06] VITALS: BP 112/70
[2017-10-30 03:27] VITALS: BP 122/73
[2017-10-30] MEDS: LEVOTHYROXINE SOD 0.125 MG TAB PO SCH (05:59)
[2017-10-30 07:29] VITALS: BP 106/73
[2017-10-30] MEDS: NS(*) 0.9% 1000 ML BAG 1,000 ML IV PRN (07:46)
[2017-10-30] MEDS: levETIRAcetam 500 MG TAB PO SCH ×2 (09:36→20:18)
[2017-10-30] MEDS: DULoxetine HCL 30 MG CAPCR PO SCH (09:36)
[2017-10-30] MEDS: PANTOPRAZOLE SOD 40 MG TABEC PO SCH (09:41)
[2017-10-30] MEDS: FOLIC ACID 1 MG TAB PO SCH (09:41)
[2017-10-30] MEDS: TAMSULOSIN HCL 0.4 MG CAP PO SCH (09:41)
[2017-10-30] MEDS: APAP/HYDROCODONE 325/5 TAB PO PRN ×2 (10:26→20:17)
--- NOTE | 2017-10-30 10:39 | Hospitalist Progress Note ---
Subjective Progress Notes Subjective He was sleeping throughout exam. He had no acute events overnight. Physical Exam Vital Signs Date Time Temp Pulse Resp B/P (MAP) Pulse Ox O2 Delivery O2 Flow Rate FiO2 10/30/17 08:25 94 10/30/17 08:25 Room Air 10/30/17 07:29 99.0 95 16 106/73 (84) 10/29/17 21:43 1.0 Intake and Output 10/31/17 07:00 Intake Total 1089 ml Balance 1089 ml IV Total 1089 ml General Appearance: No Acute Distress, Afebrile Cardiovascular: Regular Rate and Rhythm Respiratory: No Respiratory Distress Extremities: Warm, Perfused, No Edema, Other (boot placed to left foot) Result Diagram: 10/29/1763810/29/17638 Assessment and Plan Problems: (1) Seizure Status: Acute Assessment & Plan: It appears most likely the patient had a seizure based on the history, mental status change (post-ictal), high lactate which quickly normalized, and elevated WBC. He is not currently on seizure medications. He has not had any recurrent seizure activity since admission. He was started on Keppra 500mg PO BID. Monitor. (2) Elevated WBC count Status: Acute Assessment & Plan: Improved. Likely due to seizure. Will monitor. (3) Head trauma Status: Acute Assessment & Plan: CT of head and c-spine negative. (4) GERD (gastroesophageal reflux disease) Status: Chronic Assessment & Plan: The patient takes Nexium at home - on pantoprazole here. (5) Lymphocytosis Status: Chronic Assessment & Plan: The patient is followed by Dr. Garcia. Work up has been negative for leukemia or lymphoma. (6) Elevated MCV Status: Chronic Assessment & Plan: Work up by Dr. Garcia has been unremarkable. (7) Atrial septal defect Status: Chronic Assessment & Plan: The patient does have a fixed split S2 on exam. (8) Cardiac arrhythmia Status: Chronic Assessment & Plan: The patient has a cardiac pacemaker in place. A recent pacer check revealed no abnormalities per his care notes. (9) Gout Status: Chronic Assessment & Plan: Continue allopurinol. (10) Low blood pressure Status: Chronic Assessment & Plan: Will hold lisinopril. There are reports of low BPs in his care notes as well. Monitor BPs. Restart lisinopril only if warranted. (11) Fracture of distal fibula Status: Acute Assessment & Plan: He had an acute injury occur during seizure. Per Dr. Manley , he should have boot placed to left foot and he can be weight bearing as tolerated. He will have PT/OT eval today. Exam Sepsis Risk: No Definite Risk Problem Qualifiers (1) Elevated WBC count: Leukocytosis type: lymphocytosis Qualified Codes: D72.820 - Lymphocytosis ( symptomatic) (2) Fracture of distal fibula: Encounter type: initial encounter Fracture type: closed Fracture morphology : unspecified fracture morphology Laterality: left Qualified Codes: S82.832A - Other fracture of upper and lower end of left fibula, initial encounter for closed fracture KASEY CALVERT PROJECT CONTROLS SCHEDULER Oct 30, 2017 10:39
[2017-10-30] MEDS ORDERED: SALINE 0.65% NAS SPR 44 ML BTL PRN (10:40)
[2017-10-30 12:23] VITALS: BP 104/71
[2017-10-30] MEDS: ALLOPURINOL 300 MG TAB PO SCH (17:18)
[2017-10-30 19:01] VITALS: BP 123/80
[2017-10-30] MEDS: MELATONIN 3 MG TAB PO SCH (20:18)
[2017-10-30] MEDS: LORazepam 0.5 MG TAB PO PRN (20:18)
[2017-10-31 00:12] VITALS: BP 79/58
[2017-10-31 00:36] VITALS: BP 88/50
[2017-10-31] MEDS: NS(*) 0.9% 1000 ML BAG 1,000 ML IV PRN (02:16)
[2017-10-31 02:29] VITALS: BP 83/56
[2017-10-31] MEDS: LEVOTHYROXINE SOD 0.125 MG TAB PO SCH (05:33)
[2017-10-31 09:27] VITALS: BP 86/50
[2017-10-31] MEDS: APAP/HYDROCODONE 325/5 TAB PO PRN (09:47)
[2017-10-31] MEDS: FOLIC ACID 1 MG TAB PO SCH (09:47)
[2017-10-31] MEDS: DULoxetine HCL 30 MG CAPCR PO SCH (09:47)
[2017-10-31] MEDS: PANTOPRAZOLE SOD 40 MG TABEC PO SCH (09:47)
[2017-10-31] MEDS: levETIRAcetam 500 MG TAB PO SCH ×2 (09:47→20:51)
[2017-10-31] MEDS: TAMSULOSIN HCL 0.4 MG CAP PO SCH (09:47)
--- NOTE | 2017-10-31 11:11 | Hospitalist Progress Note ---
Subjective Progress Notes Subjective He had some urinary retention yesterday. He has no complaints this morning. Patient Complains of: Cardiovascular: No: Chest Pain Respiratory: No: Shortness of Breath Physical Exam Vital Signs Date Time Temp Pulse Resp B/P (MAP) Pulse Ox O2 Delivery O2 Flow Rate FiO2 10/31/17 09:27 97.8 71 18 86/50 (62) 92 Room Air 10/29/17 21:43 1.0 General Appearance: Alert, Awake, No Acute Distress, Afebrile Neuro: No Gross deficits Cardiovascular: Regular Rate and Rhythm Respiratory: No Respiratory Distress, Clear to Auscultation GI: Soft and Non-Tender Extremities: Other (boot placed to left foot) Psych: Appropriate Mood & Affect Result Diagram: 10/29/1739 10/29/17638 Assessment and Plan Problems: (1) Seizure Status: Acute Assessment & Plan: It appears most likely the patient had a seizure based on the history, mental status change (post-ictal), high lactate which quickly normalized, and elevated WBC. He is not currently on seizure medications. He has not had any recurrent seizure activity since admission. He was started on Keppra 500mg PO BID. Monitor. (2) Elevated WBC count Status: Acute Assessment & Plan: Improved. Likely due to seizure. Will monitor. (3) Head trauma Status: Acute Assessment & Plan: CT of head and c-spine negative. (4) GERD (gastroesophageal reflux disease) Status: Chronic Assessment & Plan: The patient takes Nexium at home - on pantoprazole here. (5) Lymphocytosis Status: Chronic Assessment & Plan: The patient is followed by Dr. Garcia. Work up has been negative for leukemia or lymphoma. (6) Elevated MCV Status: Chronic Assessment & Plan: Work up by Dr. Garcia has been unremarkable. (7) Atrial septal defect Status: Chronic Assessment & Plan: The patient does have a fixed split S2 on exam. (8) Cardiac arrhythmia Status: Chronic Assessment & Plan: The patient has a cardiac pacemaker in place. A recent pacer check revealed no abnormalities per his care notes. (9) Gout Status: Chronic Assessment & Plan: Continue allopurinol. (10) Low blood pressure Status: Chronic Assessment & Plan: Will hold lisinopril. There are reports of low BPs in his care notes as well. Monitor BPs. Restart lisinopril only if warranted. (11) Fracture of distal fibula Status: Acute Assessment & Plan: He had an acute injury occur during seizure. Per Dr. Manley , he should have boot placed to left foot and he can be weight bearing as tolerated. We have ordered PT/OT . (12) Urinary retention Status: Acute Assessment & Plan: We will remove the rivera catheter today. Watch closely. He is already taking Flomax for prostate. Exam Sepsis Risk: No Definite Risk Problem Qualifiers (1) Elevated WBC count: Leukocytosis type: lymphocytosis Qualified Codes: D72.820 - Lymphocytosis ( symptomatic) (2) Fracture of distal fibula: Encounter type: initial encounter Fracture type: closed Fracture morphology : unspecified fracture morphology Laterality: left Qualified Codes: S82.832A - Other fracture of upper and lower end of left fibula, initial encounter for closed fracture KASEY CALVERT PRODUCT DEVELOPMENT SPECIALIST Oct 31, 2017 11:10
[2017-10-31 13:14] VITALS: BP 87/63
[2017-10-31] MEDS: ALLOPURINOL 300 MG TAB PO SCH (17:38)
[2017-10-31 18:58] VITALS: BP 118/74
[2017-10-31] MEDS: MELATONIN 3 MG TAB PO SCH (20:51)
[2017-11-01 02:51] VITALS: BP 114/86
[2017-11-01] MEDS: LORazepam 0.5 MG TAB PO PRN (03:14)
[2017-11-01] MEDS: LEVOTHYROXINE SOD 0.125 MG TAB PO SCH (06:35)
[2017-11-01 08:50] VITALS: BP 91/71
[2017-11-01] MEDS: DULoxetine HCL 30 MG CAPCR PO SCH (09:20)
[2017-11-01] MEDS: ENOXAPARIN 40 MG/0.4ML SYR SC SCH (09:20)
[2017-11-01] MEDS: TAMSULOSIN HCL 0.4 MG CAP PO SCH (09:20)
[2017-11-01] MEDS: FOLIC ACID 1 MG TAB PO SCH (09:20)
[2017-11-01] MEDS: PANTOPRAZOLE SOD 40 MG TABEC PO SCH (09:20)
[2017-11-01] MEDS: levETIRAcetam 500 MG TAB PO SCH ×2 (09:20→20:22)
--- NOTE | 2017-11-01 10:45 | Hospitalist Progress Note ---
Subjective Progress Notes Subjective He has no complaints this morning. He has still had difficulty with urinary retention. Patient Complains of: Cardiovascular: No: Chest Pain Respiratory: No: Shortness of Breath Physical Exam Vital Signs Date Time Temp Pulse Resp B/P (MAP) Pulse Ox O2 Delivery O2 Flow Rate FiO2 11/01/17 08:50 97.7 79 12 91/71 (78) 95 Room Air 10/29/17 21:43 1.0 Intake and Output 11/01/17 01:00 Intake Total 1223 ml Output Total 675 ml Balance 548 ml Intake Oral 620 ml IV Total 603 ml Output Urine Total 675 ml # Voids 0 General Appearance: Alert, Awake, No Acute Distress, Afebrile Neuro: No Gross deficits Cardiovascular: Regular Rate and Rhythm Respiratory: No Respiratory Distress, Clear to Auscultation Extremities: Edema (left ankle 2+ pitting) Psych: Appropriate Mood & Affect Result Diagram: 10/29/17 0639 10/29/17 0639 Assessment and Plan Problems: (1) Seizure Status: Acute Assessment & Plan: It appears most likely the patient had a seizure based on the history, mental status change (post-ictal), high lactate which quickly normalized, and elevated WBC. He is not currently on seizure medications. He has not had any recurrent seizure activity since admission. He was started on Keppra 500mg PO BID. Monitor. (2) Elevated WBC count Status: Acute Assessment & Plan: Improved. Likely due to seizure. Will monitor. (3) Head trauma Status: Acute Assessment & Plan: CT of head and c-spine negative. (4) GERD (gastroesophageal reflux disease) Status: Chronic Assessment & Plan: The patient takes Nexium at home - on pantoprazole here. (5) Lymphocytosis Status: Chronic Assessment & Plan: The patient is followed by Dr. Garcia. Work up has been negative for leukemia or lymphoma. (6) Elevated MCV Status: Chronic Assessment & Plan: Work up by Dr. Garcia has been unremarkable. (7) Atrial septal defect Status: Chronic Assessment & Plan: The patient does have a fixed split S2 on exam. (8) Cardiac arrhythmia Status: Chronic Assessment & Plan: The patient has a cardiac pacemaker in place. A recent pacer check revealed no abnormalities per his care notes. (9) Gout Status: Chronic Assessment & Plan: Continue allopurinol. (10) Low blood pressure Status: Chronic Assessment & Plan: Will hold lisinopril. There are reports of low BPs in his care notes as well. Monitor BPs. Restart lisinopril only if warranted. (11) Fracture of distal fibula Status: Acute Assessment & Plan: He had an acute injury occur during seizure. Per Dr. Manley, he should have boot placed to left foot for 6-8 weeks and he can be weight bearing as tolerated. We have ordered PT/OT. Awaiting disposition for [facility] for [facility]hab. (12) Urinary retention Status: Acute Assessment & Plan: He has required intermittent catheterization. Watch closely. He is already taking Flomax for prostate. Exam Sepsis Risk: No Definite Risk Problem Qualifiers (1) Elevated WBC count: Leukocytosis type: lymphocytosis Qualified Codes: D72.820 - Lymphocytosis (symptomatic) (2) Fracture of distal fibula: Encounter type: initial encounter Fracture type: closed Fracture morphology: unspecified fracture morphology Laterality: left Qualified Codes: S82.832A - Other fracture of upper and lower end of left fibula, initial encounter for closed fracture KASEY CALVERT MOTOR ROUTE CARRIER Nov 01, 2017 10:45
[2017-11-01 12:17] VITALS: BP 105/3
--- NOTE | 2017-11-01 14:02 | Medical Nutrition Therapy ---
Nutrition Anthropometrics Height (Inches): 64 Weight (Pounds): 130 Weight (Calculated Kilograms): 59.052 BMI: 22.3 Pablo Nutrition Score: Probably Inadequate Pablo Nutrition Risk Score: 13 Dietary Referral Nutrition Risk Factors: Nutrition Risk Comment: Physical Findings Physical Appearance: 22.3 WNL Skin Appearance Skin Appearance: Edema Edema Location Modifier: Left Edema Location: Foot Type of Edema: Degree of Edema: 2+ Gastrointestinal Symptoms GI Symtoms: Tube Present: Bowel Sounds: Recent Bowel Pattern: Stool Characteristics: Nutritional Diagnosis Nutritional Risk Acuity 4: Good Appetite Past Medical History: dementia, gout Nutritional Acuity: 3-Mild Energy Requirement: 1732 ([employer] st jeor AF-1.3) Protein Requirement: 60 (1g/kg) Fluid Requirement: 1732 (1ml/kcal) Diet Type: Diet as Tolerated KIA/REG Nutrition Intervention: Cont diet as ordered, Encourage intake Nutrition Monitoring & Eval RD Patient Assessment Time: [address] Assessment Type: RD Assessment Patient Nutrition Acuity: 3-Mild Follow Up Date: Nov 06, 2017 Nutritional Comment: Pt admitted for seizure. Pt has hx of dementia. Pt is on regular diet but no intake reported at this time. alb 3.3. Will cont to monitor and encourage intake. 11/01. Pt cont on KIA, consuming 50-100% of regular meals. Distal fibula fx found, likely from when seizure occured. Pt experiencing 2+ pitting in left foot. Noteable labs include: elevated random BG 128, and WBC improving but still elevated at 11.7. No recent weight gain or loss. Will cont to monitor labs and encourage intake. LETICIA AYERS Nov 01, 2017 10:36
[2017-11-01] MEDS: ALLOPURINOL 300 MG TAB PO SCH (16:25)
[2017-11-01 16:28] VITALS: BP 89/57
[2017-11-01 19:30] VITALS: BP 117/72
[2017-11-01] MEDS: MELATONIN 3 MG TAB PO SCH (20:22)
[2017-11-02 03:08] VITALS: BP 104/51
[2017-11-02] MEDS: LEVOTHYROXINE SOD 0.125 MG TAB PO SCH (06:07)
[2017-11-02 06:50] VITALS: BP 92/67
[2017-11-02] MEDS: FOLIC ACID 1 MG TAB PO SCH (08:39)
[2017-11-02] MEDS: TAMSULOSIN HCL 0.4 MG CAP PO SCH (08:39)
[2017-11-02] MEDS: DULoxetine HCL 30 MG CAPCR PO SCH (08:39)
[2017-11-02] MEDS: ENOXAPARIN 40 MG/0.4ML SYR SC SCH (08:39)
[2017-11-02] MEDS: PANTOPRAZOLE SOD 40 MG TABEC PO SCH (08:39)
[2017-11-02] MEDS: levETIRAcetam 500 MG TAB PO SCH (08:39)
[2017-11-02] MEDS ORDERED: LOR5/325 PO (08:55)
[2017-11-02] MEDS ORDERED: LEVE500T73 PO (08:55)
--- NOTE | 2017-11-02 09:01 | Hospitalist Depart ---
Discharge Summary Reason for Hosp/Final Diag: (1) Seizure Status: Acute Hospital Course & Plan: It appears most likely the patient had a seizure based on the history, mental status change (post-ictal), high lactate which quickly normalized, and elevated WBC. He is not currently on seizure medications. He has not had any recurrent seizure activity since admission. He was started on Keppra 500mg PO BID. He had no seizure activity during admission. (2) Elevated WBC count Status: Acute Hospital Course & Plan: Improved. Likely due to seizure. (3) Head trauma Status: Acute Hospital Course & Plan: CT of head and c-spine negative. (4) GERD (gastroesophageal reflux disease) Status: Chronic Hospital Course & Plan: The patient takes Nexium at home - on pantoprazole here. (5) Lymphocytosis Status: Chronic Hospital Course & Plan: The patient is followed by Dr. Garcia. Work up has been negative for leukemia or lymphoma. (6) Elevated MCV Status: Chronic Hospital Course & Plan: Work up by Dr. Garcia has been unremarkable. (7) Atrial septal defect Status: Chronic Hospital Course & Plan: The patient does have a fixed split S2 on exam. (8) Cardiac arrhythmia Status: Chronic Hospital Course & Plan: The patient has a cardiac pacemaker in place. A recent pacer check revealed no abnormalities per his care notes. (9) Gout Status: Chronic Hospital Course & Plan: Continue allopurinol. (10) Low blood pressure Status: Chronic Hospital Course & Plan: He has continually had low blood pressure throughout admission. Will discontinue Losartan. There are reports of low BPs in his care notes as well. (11) Fracture of distal fibula Status: Acute Hospital Course & Plan: He had an acute injury occur during seizure. Per Dr. Manley, he should have boot placed to left foot for 6-8 weeks and he can be weight bearing as tolerated. We have ordered PT/OT. He will discharge to [facility] for further rehabilitation. (12) Urinary retention Status: Acute Hospital Course & Plan: He is normally incontinent at home. He has required intermittent catheterization. He is already taking Flomax for prostate. Departure Latest Vital Signs Vital Signs 11/02/17 11/02/17 11/02/17 03:08 06:50 07:41 Temp 98.8 Pulse 75 Resp 16 B/P (MAP) 92/67 (75) Pulse Ox 95 O2 Delivery Room Air O2 Flow Rate 1.0 Weight (Pounds): 130 Weight (Ounces): 3.0 Result Diagram: 10/29/1763810/29/17638 Condition: Improved Discharge: Detention Discharge Instructions Home Meds Active Scripts Hydrocodone Bit/Acetaminophen (HYDROCODON-ACETAMINOPHEN 5-325) 1 Each Tablet, 1 EACH PO Q6H PRN for PAIN, #28 TAB Prov:KASEY CALVERT PAYROLL TAX SPECIALIST 11/02/17 Levetiracetam (LEVETIRACETAM) 500 Mg Tablet, 500 MG PO BID, #60 TAB Prov:KASEY CALVERT PAYROLL TAX SPECIALIST 11/02/17 Reported Medications Triamcinolone Acetonide 0.1% Oint 15 Gm Tube (TRIAMCINOLONE ACETONIDE 0.1% 15 GM TUBE) 15 Gm Oint...g., 1 APPLIC TP PRN, TUBE 10/28/17 Guaifenesin (ROBAFEN) 100 Mg/5 Ml Liquid, 5-10 ML PO PRN PRN for COUGH 10/28/17 Hydrocortisone (CORTIZONE 10) 28 Gm Gel..gram., 1 APPLIC TP PRN 10/28/17 Bacitracin Zinc (Bacitracin Zinc) 1 Each Oint..ea., 1 APPLIC TP PRN 10/28/17 Loperamide HCl (Imodium A-D) 2 Mg Capsule, 2 TAB PO PRN PRN for DIARRHEA 2 tabs after 2 watery stools 10/28/17 Calcium Carbonate/Mag Hydrox (ANTACID CHEWABLE TABLET) 1 Each Tab.chew, 2 TAB PO PRN, TAB.CHEW 10/28/17 Acetaminophen 500 Mg Tab (ACETAMINOPHEN EXTRA STRENGTH) 500 Mg Tablet, 2 TAB PO Q4-6H PRN for PAIN, TAB 10/28/17 Lucas Tar (T-Gel) 0.5 % Shampoo, 1 FREDDY TP 3XW 10/28/17 Eyelid Cleanser Combination #5 (OCUSOFT LID SCRUB) 1 Each Med..pad, 1 EACH TP BID 10/28/17 Metronidazole (METRONIDAZOLE) 45 Gm Cream..g., 1 APPLIC TP HS 0.75% cream 10/28/17 Levothyroxine Sodium (LEVOTHYROXINE SODIUM) 75 Mcg Tablet, 75 MCG PO QDAY, TAB 10/28/17 Emollient Combination No.97 (Aquaphilic) 454 Gm Oint...g., 1 APPLIC TP BID 10/28/17 Calcium Polycarbophil (FIBER-LAX) 625 Mg Tablet, 1 TAB PO BID 10/28/17 Melatonin (MELATONIN) 3 Mg Tablet, 3 MG PO QHS 10/28/17 Duloxetine HCl (Duloxetine HCl) 30 Mg Capsule.dr, 1 CAP PO DAILY 10/28/17 Alendronate Sodium (FOSAMAX) 70 Mg Tablet, 70 MG PO QWK, TAB 10/28/17 Folic Acid (FOLIC ACID) 1 Mg Tablet, 1 MG PO QDAY, TAB 02/10/17 Cholecalciferol (Vitamin D3) (VITAMIN D3) 1,000 Unit Tablet, 1000 UNIT PO QPM, TAB 02/10/17 Cyanocobalamin (Vitamin B-12) (VITAMIN B-12) 1,000 Mcg Tablet, 1000 MCG PO 2XW 02/10/17 Tamsulosin Hcl (Flomax) 0.4 Mg Cap, 0.4 MG PO QDAY, #30 0 Refills 05/26/11 Docosahexanoic Acid/Epa (Fish Oil 1,000 Mg Capsule) 1 Cap Capsule, 1 CAP PO BID, 0 Refills 05/24/11 Lorazepam (Ativan) 0.5 Mg Tab, 0.5 MG PO Q8H PRN, 0 Refills 04/12/11 Multivitamins W-Minerals (Multiple Vitamin) 1 Tab Tablet, 1 TAB PO DAILY, 0 Refills 04/12/11 Allopurinol (Zyloprim) 300 Mg Tab, 300 MG PO QPM, 0 Refills 04/12/11 Calcium Carbonate/Vitamin D3 (Calcium + D Tablet) 1 Udtab Tablet, 1 TAB PO TID, 0 Refills Calcium 600mg/Vit D 400mg 04/12/11 Esomeprazole Mag Trihydrate (Nexium) 40 Mg Capsule.dr, 40 MG PO QDAY, 0 Refills 04/12/11 Levothyroxine Sodium (Synthroid) 50 Mcg Tablet, 50 MCG PO DAILY, 0 Refills 04/12/11 Discontinued Reported Medications Losartan Potassium (LOSARTAN POTASSIUM) 25 Mg Tablet, 25 MG PO QDAY 10/28/17 [Ishmaela Kiana] No Conflict Check, TP BID, 0 Refills 05/24/11 Metronidazole/Skin Cleanser (Metrogel 1% Kit) 1 Ea Combo..pkg, 1 EA TP DAILY, 0 Refills 05/24/11 Fluoxetine Hcl (Prozac) 40 Mg Capsule, 40 MG PO QDAY, #20 0 Refills 04/12/11 Fiber (Fiber) 1 Tab.chew Tab.chew, 1 TAB.CHEW PO BID, 0 Refills 04/12/11 Diet: Regular Activity: As Tolerated, With Walker Special Instructions: He should follow up with Primary Care Physician within 7-10 days. Venous Thromboembolism Antithrombotics Is Pt On Any Antithrombotics?: No Problem Qualifiers (1) Elevated WBC count: Leukocytosis type: lymphocytosis Qualified Codes: D72.820 - Lymphocytosis (symptomatic) (2) Fracture of distal fibula: Encounter type: initial encounter Fracture type: closed Fracture morphology: unspecified fracture morphology Laterality: left Qualified Codes: S82.832A - Other fracture of upper and lower end of left fibula, initial encounter for closed fracture KASEY CALVERT Nov 02, 2017 09:01
[2017-11-02 10:47] VITALS: BP 111/81
== END 2017-11-02 13:50 | DRG 101 ==
LOC: ER 10:27 → INTOOBSV 14:39 → MED 14:39 → OBSVTOIN 10-30
PROVIDERS: ADMIT Internal Medicine; ATTEND Internal Medicine
DX: R56.9 Unspecified convulsions (principal); S82.832A Other fracture of upper and lower end of left fibula, initial encounter for closed fracture; K21.9 Gastro-esophageal reflux disease without esophagitis; D72.820 Lymphocytosis (symptomatic); I95.89 Other hypotension; I49.9 Cardiac arrhythmia, unspecified; M1A.9XX0 Chronic gout, unspecified, without tophus (tophi); Q90.9 Down syndrome, unspecified; F03.90 Unspecified dementia, unspecified severity, without behavioral disturbance, psychotic disturbance, mood disturbance, and anxiety; M41.9 Scoliosis, unspecified; N20.0 Calculus of kidney; I27.20 Pulmonary hypertension, unspecified; R33.9 Retention of urine, unspecified; W18.39XA Other fall on same level, initial encounter; Y92.090 Kitchen in other non-institutional residence as the place of occurrence of the external cause; Y99.8 Other external cause status; Z95.0 Presence of cardiac pacemaker; Z23 Encounter for immunization
CPT/HCPCS: 36415; 70450; 71260; 72125; 74177; 81001; 82040; 82247; 82310; 82374; 82435; 82565; 82947; 83605; 83690; 84075; 84132; 84155; 84295; 84450; 84460; 84520; 85025; 85610; 85730; 90471; 90715; 96372; 97161; 97165; 99284; 99285; A4216; G0378; J1650; J3490; J7030; Q9967

== ENCOUNTER → 2017-10-28 | Outpatient (CLI) | payer MEDICARE, MEDICAID ==
[~2017-10-28] MED LIST changes: +ACET-2146 PO; +ALEN70TA43 PO; +BACI1OIN6 TP; +CALC1TAB24 PO; +CALC625T65 PO; +COAL130S5 TP; +DULO30CA6 PO; +EMOL454O TP; +EYEL1MED TP; +GUAI-244 PO; +HYDR28GE3 TP; +LEVE500T73 PO; +LEVO75TA73 PO; +LOPE2CAP15 PO; +LOR5/325 PO; +LOSA25TA50 PO; +MELA3TAB31 PO; +TRIA15OI20 TP
== END ==
LOC: AMB 09:54
PROVIDERS: ATTEND Nurse Practitioner
DX: R55 Syncope and collapse (principal); R53.1 Weakness; R41.82 Altered mental status, unspecified; R04.0 Epistaxis; W18.30XA Fall on same level, unspecified, initial encounter
CPT/HCPCS: A0425; A0427

== ENCOUNTER 2018-01-02 12:21 | Inpatient (IN) | payer MEDICARE, MEDICAID ==
[~2018-01-02 12:21] MED LIST changes: -OMEP-125 PO
--- NOTE | 2018-01-02 12:21 | ER Report ---
History and Physical Time Seen By MD: 12:15 HPI/ROS CHIEF COMPLAINT: Shortness of breath, lethargy HISTORY OF PRESENT ILLNESS: 57-year-old male patient presents to emergency room with complaint of shortness of breath and lethargy. [facility] Patient does have a history of Down syndrome. Nurses state that he is not been himself for the last 24 hours. States that this started last night. When EMS arrived he is found to be 80% on room air. He was started on a nonrebreather. Patient has not received any other medication. Patient has not taken his medication today. There is no nausea, vomiting. REVIEW OF SYSTEMS: Unable to obtain due to patient's mental status. Allergies: Uncoded Allergies: AVOID NSAIDS (Adverse Reaction, Unknown, 11/23/11) Home Meds Active Scripts Hydrocodone Bit/Acetaminophen (HYDROCODON-ACETAMINOPHEN 5-325) 1 Each Tablet, 1 EACH PO Q6H PRN for PAIN, #28 TAB Prov:KASEY CALVERT [facility] 11/02/17 Levetiracetam (LEVETIRACETAM) 500 Mg Tablet, 500 MG PO BID, #60 TAB Prov:KASEY CALVERT [facility] 11/02/17 Reported Medications Triamcinolone Acetonide 0.1% Oint 15 Gm Tube (TRIAMCINOLONE ACETONIDE 0.1% 15 GM TUBE) 15 Gm Oint...g., 1 APPLIC TP PRN, TUBE 10/28/17 Guaifenesin (ROBAFEN) 100 Mg/5 Ml Liquid, 5-10 ML PO PRN PRN for COUGH 10/28/17 Hydrocortisone (CORTIZONE 10) 28 Gm Gel..gram., 1 APPLIC TP PRN 10/28/17 Bacitracin Zinc (Bacitracin Zinc) 1 Each Oint..ea., 1 APPLIC TP PRN 10/28/17 Loperamide HCl (Imodium A-D) 2 Mg Capsule, 2 TAB PO PRN PRN for DIARRHEA 2 tabs after 2 watery stools 10/28/17 Calcium Carbonate/Mag Hydrox (ANTACID CHEWABLE TABLET) 1 Each Tab.chew, 2 TAB PO PRN, TAB.CHEW 10/28/17 Acetaminophen 500 Mg Tab (ACETAMINOPHEN EXTRA STRENGTH) 500 Mg Tablet, 2 TAB PO Q4-6H PRN for PAIN, TAB 10/28/17 [place] Tar (T-Gel) 0.5 % Shampoo, 1 FREDDY TP 3XW 10/28/17 Eyelid Cleanser Combination #5 (OCUSOFT LID SCRUB) 1 Each Med..pad, 1 EACH TP BID 10/28/17 Metronidazole (METRONIDAZOLE) 45 Gm Cream..g., 1 APPLIC TP HS 0.75% cream 10/28/17 Levothyroxine Sodium (LEVOTHYROXINE SODIUM) 75 Mcg Tablet, 75 MCG PO QDAY, TAB 10/28/17 Emollient Combination No.97 (Aquaphilic) 454 Gm Oint...g., 1 APPLIC TP BID 10/28/17 Calcium Polycarbophil (FIBER-LAX) 625 Mg Tablet, 1 TAB PO BID 10/28/17 Melatonin (MELATONIN) 3 Mg Tablet, 3 MG PO QHS 10/28/17 Duloxetine HCl (Duloxetine HCl) 30 Mg Capsule.dr, 1 CAP PO DAILY 10/28/17 Alendronate Sodium (FOSAMAX) 70 Mg Tablet, 70 MG PO QWK, TAB 10/28/17 Folic Acid (FOLIC ACID) 1 Mg Tablet, 1 MG PO QDAY, TAB 02/10/17 Cholecalciferol (Vitamin D3) (VITAMIN D3) 1,000 Unit Tablet, 1000 UNIT PO QPM, TAB 02/10/17 Cyanocobalamin (Vitamin B-12) (VITAMIN B-12) 1,000 Mcg Tablet, 1000 MCG PO 2XW 02/10/17 Tamsulosin Hcl (Flomax) 0.4 Mg Cap, 0.4 MG PO QDAY, #30 0 Refills 05/26/11 Docosahexanoic Acid/Epa (Fish Oil 1,000 Mg Capsule) 1 Cap Capsule, 1 CAP PO BID, 0 Refills 05/24/11 Lorazepam (Ativan) 0.5 Mg Tab, 0.5 MG PO Q8H PRN, 0 Refills 04/12/11 Multivitamins W-Minerals (Multiple Vitamin) 1 Tab Tablet, 1 TAB PO DAILY, 0 Refills 04/12/11 Allopurinol (Zyloprim) 300 Mg Tab, 300 MG PO QPM, 0 Refills 04/12/11 Calcium Carbonate/Vitamin D3 (Calcium + D Tablet) 1 Udtab Tablet, 1 TAB PO TID, 0 Refills Calcium 600mg/Vit D 400mg 04/12/11 Esomeprazole Mag Trihydrate (Nexium) 40 Mg Capsule.dr, 40 MG PO QDAY, 0 Refills 04/12/11 Levothyroxine Sodium (Synthroid) 50 Mcg Tablet, 50 MCG PO DAILY, 0 Refills 04/12/11 Past Medical/Surgical History Patient has a past medical history of a developmental delay, heart murmur, pneumonia, difficulty swallowing, reflux, cholecystitis, kidney stones, benign prostatic hypertrophy, gout, back pain, hard hearing, hypothyroidism, and depression, folliculitis. Patient has surgical history of appendectomy, cholecystectomy, neck fusion. Patient has a family medical history of CAD. Reviewed Nurses Notes: Yes Hx Smoking: No Exposure to Second Hand Smoke?: No Hx Substance Use Disorder: No Hx Alcohol Use: No Constitutional Vital Sign - Last 24 Hours 01/02/18 01/02/18 01/02/18 01/02/18 12:21 12:21 12:21 12:30 Temp 97.5 Pulse 109 106 Resp 20 B/P (MAP) 104/73 114/76 (89) Pulse Ox 83 84 O2 Delivery Room Air O2 Flow Rate 4.0 01/02/18 01/02/18 01/02/18 01/02/18 12:36 12:41 12:44 12:45 Pulse 109 106 105 Resp 24 23 12 B/P (MAP) 104/71 (82) Pulse Ox 91 93 01/02/18 01/02/18 01/02/18 01/02/18 12:56 13:00 13:11 13:15 Pulse 104 104 Resp 17 20 B/P (MAP) 98/71 (80) 94/65 (75) Pulse Ox 88 90 01/02/18 01/02/18 01/02/18 01/02/18 13:26 13:30 13:56 14:00 Pulse 104 108 Resp 29 19 B/P (MAP) 96/62 (73) 97/62 (74) Pulse Ox 89 90 01/02/18 01/02/18 01/02/18 01/02/18 14:11 14:15 14:26 14:30 Pulse 109 108 Resp 9 24 B/P (MAP) 102/63 (76) 96/65 (75) Pulse Ox 91 89 01/02/18 01/02/18 01/02/18 14:35 14:45 14:50 Pulse 111 106 Resp 28 20 B/P (MAP) 116/75 (89) Pulse Ox 88 90 Physical Exam General Appearance: The patient is alert, has no immediate need for airway protection and no current signs of toxicity. Respiratory: Chest is non tender, lungs are diminished on the left side to auscultation. Cardiac: regular rate and rhythm Gastrointestinal: Abdomen is soft and non tender, no masses, bowel sounds normal. Musculoskeletal: Neck: Neck is supple and non tender. Extremities have full range of motion and are non tender. Skin: No rashes or lesions. DIFFERENTIAL DIAGNOSIS: After history and physical exam differential diagnosis was considered for shortness of breath including but not limited to pulmonary infectious process, COPD, asthma, pulmonary embolus and congestive heart failure. Included in the differential is urinary tract infection. Medical Decision Making Data Points Result Diagram: 01/02/18 1220 01/02/18 1907 Laboratory Hematology Test 01/02/18 12:20 01/02/18 13:10 01/02/18 14:43 Red Blood Count 4.47 M/uL (4.00-5.60) Mean Corpuscular Volume 97.8 fL (80.0-96.0) Mean Corpuscular Hemoglobin 30.7 pg (26.0-33.0) Mean Corpuscular Hemoglobin Concent 31.4 g/dL (32.0-36.0) Red Cell Distribution Width 16.8 % (11.5-14.5) Mean Platelet Volume 9.0 fL (7.2-11.1) Neutrophils (%) (Auto) % (39.4-72.5) Lymphocytes (%) (Auto) % (17.6-49.6) Monocytes (%) (Auto) % (4.1-12.4) Eosinophils (%) (Auto) % (0.4-6.7) Basophils (%) (Auto) % (0.3-1.4) Nucleated RBC Relative Count (auto) /100WBC Neutrophils # (Auto) K/uL (2.0-7.4) Lymphocytes # (Auto) K/uL (1.3-3.6) Monocytes # (Auto) K/uL (0.3-1.0) Eosinophils # (Auto) K/uL (0.0-0.5) Basophils # (Auto) K/uL (0.0-0.1) Nucleated RBC Absolute Count (auto) K/uL Neutrophils % (Manual) 72 % (39.4-72.5) Band Neutrophils % 7 % Lymphocytes % (Manual) 17 % (17.6-49.6) Monocytes % (Manual) 4 % (4.1-12.4) Eosinophils % (Manual) 0 % (0.4-6.7) Basophils % (Manual) 0 % (0.3-1.4) Peripheral Blood Smear Yes Y/N D-Dimer Quantitative (PE/DVT) 3.27 ug/ml (0-0.50) Total Bilirubin 0.9 mg/dl (0.2-1.3) Aspartate Amino Transf (AST/SGOT) 27 U/L (0-35) Alanine Aminotransferase (ALT/SGPT) 24 U/L (0-56) Alkaline Phosphatase 125 U/L (0-126) Troponin I 0.031 ng/ml Total Protein 7.7 g/dl (6.3-8.2) Albumin 3.1 g/dl (3.5-5.0) Urine Color Yellow Urine Clarity Clear Urine pH 5.0 pH (4.8-9.5) Urine Specific [place] 1.018 Urine Protein Negative mg/dL (NEGATIVE) Urine Glucose (UA) Negative mg/dL (NEGATIVE) Urine Ketones Negative mg/dL (NEGATIVE) Urine Blood Small (NEGATIVE) Urine Nitrite Negative (NEGATIVE) Urine Bilirubin Negative (NEGATIVE) Urine Urobilinogen 2.0 mg/dL (0.2-1.9) Urine Leukocyte Esterase Negative (NEGATIVE) Urine RBC 3 /HPF (0-2/HPF) Urine WBC 3 /HPF (0-5/HPF) Urine Squamous Epithelial Cells Few /LPF (NONE-FEW) Urine Bacteria Negative /HPF (NONE-FEW) Urine Hyaline Casts Few /LPF (NONE-FEW) Urine Mucus Few /HPF (NONE-FEW) Lactate 2.0 mmol/L (0.7-2.1) Chemistry Test 01/02/18 12:20 01/02/18 13:10 01/02/18 14:43 White Blood Count 19.7 k/uL (4.5-11.0) Red Blood Count 4.47 M/uL (4.00-5.60) Hemoglobin 13.7 g/dL (14.0-18.0) Hematocrit 43.8 % (42.0-52.0) Mean Corpuscular Volume 97.8 fL (80.0-96.0) Mean Corpuscular Hemoglobin 30.7 pg (26.0-33.0) Mean Corpuscular Hemoglobin Concent 31.4 g/dL (32.0-36.0) Red Cell Distribution Width 16.8 % (11.5-14.5) Platelet Count 529 K/uL (150-450) Mean Platelet Volume 9.0 fL (7.2-11.1) Neutrophils (%) (Auto) % (39.4-72.5) Lymphocytes (%) (Auto) % (17.6-49.6) Monocytes (%) (Auto) % (4.1-12.4) Eosinophils (%) (Auto) % (0.4-6.7) Basophils (%) (Auto) % (0.3-1.4) Nucleated RBC Relative Count (auto) /100WBC Neutrophils # (Auto) K/uL (2.0-7.4) Lymphocytes # (Auto) K/uL (1.3-3.6) Monocytes # (Auto) K/uL (0.3-1.0) Eosinophils # (Auto) K/uL (0.0-0.5) Basophils # (Auto) K/uL (0.0-0.1) Nucleated RBC Absolute Count (auto) K/uL Neutrophils % (Manual) 72 % (39.4-72.5) Band Neutrophils % 7 % Lymphocytes % (Manual) 17 % (17.6-49.6) Monocytes % (Manual) 4 % (4.1-12.4) Eosinophils % (Manual) 0 % (0.4-6.7) Basophils % (Manual) 0 % (0.3-1.4) Peripheral Blood Smear Yes Y/N D-Dimer Quantitative (PE/DVT) 3.27 ug/ml (0-0.50) Total Bilirubin 0.9 mg/dl (0.2-1.3) Aspartate Amino Transf (AST/SGOT) 27 U/L (0-35) Alanine Aminotransferase (ALT/SGPT) 24 U/L (0-56) Alkaline Phosphatase 125 U/L (0-126) Troponin I 0.031 ng/ml Total Protein 7.7 g/dl (6.3-8.2) Albumin 3.1 g/dl (3.5-5.0) Urine Color Yellow Urine Clarity Clear Urine pH 5.0 pH (4.8-9.5) Urine Specific [place] 1.018 Urine Protein Negative mg/dL (NEGATIVE) Urine Glucose (UA) Negative mg/dL (NEGATIVE) Urine Ketones Negative mg/dL (NEGATIVE) Urine Blood Small (NEGATIVE) Urine Nitrite Negative (NEGATIVE) Urine Bilirubin Negative (NEGATIVE) Urine Urobilinogen 2.0 mg/dL (0.2-1.9) Urine Leukocyte Esterase Negative (NEGATIVE) Urine RBC 3 /HPF (0-2/HPF) Urine WBC 3 /HPF (0-5/HPF) Urine Squamous Epithelial Cells Few /LPF (NONE-FEW) Urine Bacteria Negative /HPF (NONE-FEW) Urine Hyaline Casts Few /LPF (NONE-FEW) Urine Mucus Few /HPF (NONE-FEW) Lactate 2.0 mmol/L (0.7-2.1) Coagulation Test 01/02/18 12:20 D-Dimer Quantitative (PE/DVT) 3.27 ug/ml Urinalysis Test 01/02/18 13:10 Urine Color Yellow Urine Clarity Clear Urine pH 5.0 pH (4.8-9.5) Urine Specific [place] 1.018 Urine Protein Negative mg/dL (NEGATIVE) Urine Glucose (UA) Negative mg/dL (NEGATIVE) Urine Ketones Negative mg/dL (NEGATIVE) Urine Blood Small (NEGATIVE) Urine Nitrite Negative (NEGATIVE) Urine Bilirubin Negative (NEGATIVE) Urine Urobilinogen 2.0 mg/dL (0.2-1.9) Urine Leukocyte Esterase Negative (NEGATIVE) Urine RBC 3 /HPF (0-2/HPF) Urine WBC 3 /HPF (0-5/HPF) Urine Squamous Epithelial Cells Few /LPF (NONE-FEW) Urine Bacteria Negative /HPF (NONE-FEW) Urine Hyaline Casts Few /LPF (NONE-FEW) Urine Mucus Few /HPF (NONE-FEW) EKG/Imaging Imaging Study: CHEST SINGLE AP Indication: Altered mental status Comparison study: March 07, 2016 Findings: AP semierect portable chest demonstrates the presence of a left base infiltrate. This appears to be within the lingula. This is consistent with pneumonia. There is no evidence of pneumothorax. There is no evidence of pleural effusion. There is a permanent pacemaker present. There is no evidence of abnormality of the appearance of the pulse generator or its leads. IMPRESSION: Left base infiltrate consistent with lingular pneumonia. Report Dictated By: Micah Robles at 01/02/2018 1:55 PM Report E-Signed By: Micah Robles at 01/02/2018 1:57 PM EXAMINATION: Head CT without intravenous contrast HISTORY: Altered mental status TECHNIQUE: Contiguous axial images were obtained from the skull base to the vertex without intravenous contrast. Sagittal and coronal reformatted images are also submitted. Dose Lowering Technique One of the following dose optimization techniques was utilized in the performance of this exam: Automated exposure control; adjustment of the mA and/or kV according to the patient's size; or use of an iterative reconstruction technique. Specific details can be referenced in the facility's radiology CT exam operational policy. COMPARISON: October 28, 2017 FINDINGS: Brain volume: There is moderate diffuse cortical atrophy and moderate dilatation of the lateral ventricular system although appears stable when compared to the prior study Ventricles: As above Acute ischemic changes: None. Hemorrhage: None. Masses / edema: None. Sethi-white: Negative. White matter: Area of decreased attenuation consistent with encephalomalacia is again seen in the right frontal and right parietal white matter without mass effect Vessels: Calcifications in the carotid siphons Extra-axial: Enlarged cisterna magna similar to the prior study Calvarium / scalp: Negative. Skull base / visualized face: Negative. Visualized sinuses / orbits: Negative. IMPRESSION: Moderate diffuse central cortical atrophy out of proportion for patient's age although appears stable when compared to the prior study Areas of encephalomalacia in the right frontal and right parietal white matter appears stable Report Dictated By: Vee Ortiz MD at 01/02/2018 2:02 PM Report E-Signed By: Vee Ortiz MD at 01/02/2018 2:07 PM ED Course/Re-evaluation ED Course Patient was admitted to an exam room, history and physical were obtained. Differential diagnoses were considered. On examination lungs are extremely diminished on left side, heart is tachycardia, abdomen soft nontender. A CBC, CMP, d-dimer, EKG, troponin, chest x-ray, CT scan of the head were done. A Garcia catheter was placed and urinalysis was obtained. Patient had an elevated white count of 19,000, he had a critically high sodium of 157, chloride was high at 114. Creatinine was elevated to with a BUN of 49. Patient was given a 500 cc bolus of normal saline. Chest x-ray was done which showed a pneumonia in the left lower lobe. CT scan of the head was done which showed no acute findings. I discussed the case with Dr. Osorio, hospitalist. He did encourage a fluid bolus and a lactate. Also recommend starting patient on Rocephin or azithromycin. She was given a dose of Rocephin after urine culture and blood cultures were obtained. Patient was admitted to the hospital with diagnosis of pneumonia. Lactate fortunately was 2.0. Decision to Disposition Date: Jan 02, 2018 Decision to Disposition Time: 14:35 Depart Departure Latest Vital Signs Vital Signs Date Time Temp Pulse Resp B/P (MAP) Pulse Ox O2 Delivery O2 Flow Rate FiO2 01/02/18 14:50 106 20 90 01/02/18 14:45 116/75 (89) 01/02/18 12:21 4.0 01/02/18 12:21 97.5 Room Air Impression: Primary Impression: Pneumonia Condition: Improved Disposition: Admitted from ER Problem Qualifiers Primary Impression: Pneumonia Pneumonia type: due to unspecified organism Laterality: left Lung location: lower lobe of lung Qualified Codes: J18.1 - Lobar pneumonia, unspecified organism MARINA GARDINER Jan 02, 2018 12:21
[2018-01-02] MEDS ORDERED: NS(*) 0.9% 500 ML BAG 500 ML IV ONE (12:22)
[2018-01-02] MEDS ORDERED: ALBUTEROL/IPRATROPIUM 3 ML NEB NEB ONE (12:25)
[2018-01-02] MEDS ORDERED: ALBUTEROL/IPRATROPIUM 3 ML NEB ONE (12:36)
[2018-01-02 12:37] LABS: PLATELET COUNT, AUTOMATED 529 K/uL (150-450)
[2018-01-02] MEDS ORDERED: NS(*) 0.9% 50 ML BAG 50 ML ONE (13:09)
[2018-01-02] MEDS ORDERED: IOPAMIDOL 76% 75 ML INFUS BTL 75 ML ONE (13:09)
--- NOTE | 2018-01-02 14:02 | RADIOLOGY IMAGING REPORT ---
FACILITY: [facility] PATIENT NAME: Zechariah Worley : 1960 MR: [id number] V: [id number] EXAM DATE: ORDERING PHYSICIAN: MARINA GARDINER TECHNOLOGIST: Location: [facility] Patient: Zechariah Worley : 1960 Visit/Account:[id number] Date of Sevice: 01/02/2018 Study: CHEST SINGLE AP Indication: Altered mental status Comparison study: March 07, 2016 Findings: AP semierect portable chest demonstrates the presence of a left base infiltrate. This appea rs to be within the lingula. This is consistent with pneumonia. There is no evidence of pneumothorax. There is no evidence of pleural effusion. There is a permanent pacemaker present. There is no evidence of abnormality of the appearance of the pulse generator or its leads. IMPRESSION: Left base infiltrate consistent with lingular pneumonia. Report Dictated By: Micah Robles at 01/02/2018 1:55 PM Report E-Signed By: Micah Robles at 01/02/2018 1:57 PM WSN:[id number]
--- NOTE | 2018-01-02 14:12 | RADIOLOGY IMAGING REPORT ---
FACILITY: [facility] PATIENT NAME: Zechariah Worley : 1960 MR: [id number] V: [id number] EXAM DATE: ORDERING PHYSICIAN: MARINA GARDINER TECHNOLOGIST: Location: [facility] Patient: Zechariah Worley : 1960 Visit/Account:[id number] Date of Sevice: 01/02/2018 EXAMINATION: Head CT without intravenous contrast HISTORY: Altered mental status TECHNIQUE: Contiguous axial images were obtained from the skull base to the vertex without intraven ous contrast. Sagittal and coronal reformatted images are also submitted. Dose Lowering Technique One of the following dose optimization techniques was utilized in the performance of this exam: Autom ated exposure control; adjustment of the mA and/or kV according to the patient's size; or use of an i terative reconstruction technique. Specific details can be referenced in the facility's radiology C T exam operational policy. COMPARISON: October 28, 2017 FINDINGS: Brain volume: There is moderate diffuse cortical atrophy and moderate dilatation of the lateral vent ricular system although appears stable when compared to the prior study Ventricles: As above Acute ischemic changes: None. Hemorrhage: None. Masses / edema: None. Sethi-white: Negative. White matter: Area of decreased attenuation consistent with encephalomalacia is again seen in the ri ght frontal and right parietal white matter without mass effect Vessels: Calcifications in the carotid siphons Extra-axial: Enlarged cisterna magna similar to the prior study Calvarium / scalp: Negative. Skull base / visualized face: Negative. Visualized sinuses / orbits: Negative. IMPRESSION: Moderate diffuse central cortical atrophy out of proportion for patient's age although appears stable when compared to the prior study Areas of encephalomalacia in the right frontal and right parietal white matter appears stable Report Dictated By: Vee Ortiz MD at 01/02/2018 2:02 PM Report E-Signed By: Vee Ortiz MD at 01/02/2018 2:07 PM WSN:[email or web address]
[2018-01-02] MEDS ORDERED: cefTRIAXone(*) 1 GM VIAL 1 GM in NS(*) 0.9% 100 ML ADDVANT BAG 100 ML IVPB ONE (14:35)
[2018-01-02] MEDS ORDERED: NS(*) 0.9% 1000 ML BAG 1,000 ML IV ONE ×2 (14:40→16:25)
[2018-01-02] MEDS ORDERED: NS(*) 0.9% 1000 ML BAG 1,000 ML ONE (16:17)
[2018-01-02] MEDS ORDERED: NS(*) 0.9% 1000 ML BAG 1,000 ML IV PRN (16:23)
--- NOTE | 2018-01-02 16:28 | EKG ---
FACILITY: [facility] PATIENT NAME: MOISÉS AYAAL : [id number] MR: [id number] V: [id number] EXAM DATE: ORDERING PHYSICIAN: MARINA GARDINER TECHNOLOGIST: WANDA Test Reason : LOW O2 SAT Blood Pressure : / mmHG Vent. Rate : 108 BPM Atrial Rate : 108 BPM P-R Int : 154 ms QRS Dur : 072 ms QT Int : 356 ms P-R-T Axes : 052 -57 032 degrees QTc Int : 477 ms Sinus tachycardia Left axis deviation Inferior infarct , age undetermined Anterior infarct , age undetermined Abnormal ECG No previous ECGs available Confirmed by RAFAELA DODGE ([id number]) on 01/02/2018 4:36:47 PM Referred By: ZULEYKA Confirmed By:RAFAELA DODGE
--- NOTE | 2018-01-02 16:35 | History & Physical ---
History of Present Illness Chief Complaint Altered mental status History of Present Illness This patient presented to the emergency room after [facility] at the [facility]. EMS reported that his oxygen saturation was 80% at the time of their arrival. The patient is unable to give any further history. History Problems: (1) Scoliosis Status: Chronic (2) Gout Status: Chronic (3) Cardiac arrhythmia Status: Chronic (4) Nephrolithiasis Status: Chronic (5) Seizure Status: Acute (6) GERD (gastroesophageal reflux disease) Status: Chronic (7) Pulmonary HTN Status: Chronic (8) Atrial septal defect Status: Chronic (9) Fracture of distal fibula Status: Chronic (10) S/P cholecystectomy Status: Resolved (11) S/P hernia repair Status: Resolved (12) S/P cervical spinal fusion Status: Resolved (13) S/P appy Status: Resolved (14) Hx of lithotripsy Status: Resolved (15) History of permanent cardiac pacemaker placement Status: Chronic Home Meds Active Scripts Hydrocodone Bit/Acetaminophen (HYDROCODON-ACETAMINOPHEN 5-325) 1 Each Tablet, 1 EACH PO Q6H PRN for PAIN, #28 TAB Prov:KASEY CALVERT [facility] 11/02/17 Levetiracetam (LEVETIRACETAM) 500 Mg Tablet, 500 MG PO BID, #60 TAB Prov:KASEY CALVERT [facility] 11/02/17 Reported Medications Triamcinolone Acetonide 0.1% Oint 15 Gm Tube (TRIAMCINOLONE ACETONIDE 0.1% 15 GM TUBE) 15 Gm Oint...g., 1 APPLIC TP PRN, TUBE 10/28/17 Guaifenesin (ROBAFEN) 100 Mg/5 Ml Liquid, 5-10 ML PO PRN PRN for COUGH 10/28/17 Hydrocortisone (CORTIZONE 10) 28 Gm Gel..gram., 1 APPLIC TP PRN 10/28/17 Bacitracin Zinc (Bacitracin Zinc) 1 Each Oint..ea., 1 APPLIC TP PRN 10/28/17 Loperamide HCl (Imodium A-D) 2 Mg Capsule, 2 TAB PO PRN PRN for DIARRHEA 2 tabs after 2 watery stools 10/28/17 Calcium Carbonate/Mag Hydrox (ANTACID CHEWABLE TABLET) 1 Each Tab.chew, 2 TAB PO PRN, TAB.CHEW 10/28/17 Acetaminophen 500 Mg Tab (ACETAMINOPHEN EXTRA STRENGTH) 500 Mg Tablet, 2 TAB PO Q4-6H PRN for PAIN, TAB 10/28/17 [place] Tar (T-Gel) 0.5 % Shampoo, 1 FREDDY TP 3XW 10/28/17 Eyelid Cleanser Combination #5 (OCUSOFT LID SCRUB) 1 Each Med..pad, 1 EACH TP BID 10/28/17 Metronidazole (METRONIDAZOLE) 45 Gm Cream..g., 1 APPLIC TP HS 0.75% cream 10/28/17 Levothyroxine Sodium (LEVOTHYROXINE SODIUM) 75 Mcg Tablet, 75 MCG PO QDAY, TAB 10/28/17 Emollient Combination No.97 (Aquaphilic) 454 Gm Oint...g., 1 APPLIC TP BID 10/28/17 Calcium Polycarbophil (FIBER-LAX) 625 Mg Tablet, 1 TAB PO BID 10/28/17 Melatonin (MELATONIN) 3 Mg Tablet, 3 MG PO QHS 10/28/17 Duloxetine HCl (Duloxetine HCl) 30 Mg Capsule.dr, 1 CAP PO DAILY 10/28/17 Alendronate Sodium (FOSAMAX) 70 Mg Tablet, 70 MG PO QWK, TAB 10/28/17 Folic Acid (FOLIC ACID) 1 Mg Tablet, 1 MG PO QDAY, TAB 02/10/17 Cholecalciferol (Vitamin D3) (VITAMIN D3) 1,000 Unit Tablet, 1000 UNIT PO QPM, TAB 02/10/17 Cyanocobalamin (Vitamin B-12) (VITAMIN B-12) 1,000 Mcg Tablet, 1000 MCG PO 2XW 02/10/17 Tamsulosin Hcl (Flomax) 0.4 Mg Cap, 0.4 MG PO QDAY, #30 0 Refills 05/26/11 Docosahexanoic Acid/Epa (Fish Oil 1,000 Mg Capsule) 1 Cap Capsule, 1 CAP PO BID, 0 Refills 05/24/11 Lorazepam (Ativan) 0.5 Mg Tab, 0.5 MG PO Q8H PRN, 0 Refills 04/12/11 Multivitamins W-Minerals (Multiple Vitamin) 1 Tab Tablet, 1 TAB PO DAILY, 0 Refills 04/12/11 Allopurinol (Zyloprim) 300 Mg Tab, 300 MG PO QPM, 0 Refills 1/31/12 Calcium Carbonate/Vitamin D3 (Calcium + D Tablet) 1 Udtab Tablet, 1 TAB PO TID, 0 Refills Calcium 600mg/Vit D 400mg 04/12/11 Esomeprazole Mag Trihydrate (Nexium) 40 Mg Capsule.dr, 40 MG PO QDAY, 0 Refills 04/12/11 Levothyroxine Sodium (Synthroid) 50 Mcg Tablet, 50 MCG PO DAILY, 0 Refills 04/12/11 Allergies: Uncoded Allergies: AVOID NSAIDS (Adverse Reaction, Unknown, 11/23/11) Patient History: Unobtainable due to patient's condition Hx Smoking: No Exposure to Second Hand Smoke?: No Caffeine Intake: Soda Caffeine/Cups Per Day: OCC Hx Alcohol Use: No Hx Substance Use Disorder: No Review of Systems All Systems Reviewed/Normal: Yes, Except as Noted Neurological: Confusion Exam Vital Signs Vital Signs Date Time Temp Pulse Resp B/P (MAP) Pulse Ox O2 Delivery O2 Flow Rate FiO2 01/02/18 15:40 101 14 94 01/02/18 15:30 103/69 (80) 01/02/18 12:21 4.0 01/02/18 12:21 97.5 Room Air Neuro: No Gross deficits Eyes: PERRLA Cardiovascular: Regular Rate and Rhythm Respiratory: Other (Diminished breath sounds at left base.) GI: Abd Soft and Non-Tender Extremities: No Edema Integumentary: No Cyanosis Medical Decision Making Data Points Result Diagram: 01/02/18 1220 01/02/18 1220 EKG / Imaging Imaging Chest x-ray reviewed. Assessment and Plan Problems: (1) Bacterial pneumonia Assessment & Plan: He did present with altered mental status and increased oxygen requirements. His chest x-ray did show a lingular infiltrate and his WBC is elevated. He has been started on empiric treatment with ceftriaxone and azithromycin. Blood cultures are pending. (2) Hypernatremia Assessment & Plan: He has been treated with several fluid boluses. A repeat level is ordered for later this evening. (3) Altered mental status Status: Acute Assessment & Plan: Secondary to pneumonia. A CT scan of the head atrophy, but no acute changes. Venous Thromboembolism Antithrombotics Is Pt On Any Antithrombotics?: No Exam Sepsis Risk: No Definite Risk RAFAELA DODGE DO Jan 02, 2018 16:34
[2018-01-02] MEDS: AZITHROMYCIN(*) 500 MG 500 MG in NS(*) 0.9% 250 ML BAG 250 ML IVPB SCH (16:50)
[2018-01-02] MEDS: D5 1/2 NS(*) 1000 ML BAG 1,000 ML IV PRN (20:25)
[2018-01-02 20:30] VITALS: BP 87/59
[2018-01-03] VITALS (8 sets, daily range): BP systolic 73–88; BP diastolic 41–60
[2018-01-03] MEDS: D5 1/2 NS(*) 1000 ML BAG 1,000 ML IV PRN (03:07)
[2018-01-03] MEDS ORDERED: 1/2 NS IV SCH ×2 (04:55→10:15)
[2018-01-03] MEDS ORDERED: KCL IV SCH ×2 (04:55→10:15)
[2018-01-03] MEDS ORDERED: D5 IV SCH ×2 (04:55→10:15)
[2018-01-03] MEDS ORDERED: KCL 2 MEQ/ML 20 MEQ/10 ML VIAL ONE (05:06)
[2018-01-03] MEDS ORDERED: D5 1/2 NS(*) 1000 ML BAG 1,000 ML IV ONE (05:06)
[2018-01-03] MEDS ORDERED: KCL/D1/2NS 20 MEQ 1000 ML 1,000 ML IV ONE (05:17)
[2018-01-03 05:41] LABS: PLATELET COUNT, AUTOMATED 396 K/uL (150-450)
[2018-01-03] MEDS: TAMSULOSIN HCL 0.4 MG CAP PO SCH (09:43)
[2018-01-03] MEDS: DULoxetine HCL 30 MG CAPCR PO SCH (09:43)
[2018-01-03] MEDS: PANTOPRAZOLE SOD 40 MG TABEC PO SCH (09:43)
[2018-01-03] MEDS: ENOXAPARIN 40 MG/0.4ML SYR SC SCH (09:43)
[2018-01-03] MEDS: levETIRAcetam 500 MG TAB PO SCH ×2 (09:43→20:54)
--- NOTE | 2018-01-03 11:18 | Hospitalist Progress Note ---
Subjective Progress Notes Subjective He is awake and alert. He does not answer questions or speak much at all. Physical Exam Vital Signs Date Time Temp Pulse Resp B/P (MAP) Pulse Ox O2 Delivery O2 Flow Rate FiO2 01/03/18 10:20 98.3 89 26 82/60 (67) 90 Nasal Cannula 4.0 Intake and Output 01/03/18 06:59 Intake Total 4032 ml Output Total 465 ml Balance 3567 ml Intake Oral 60 ml IV Total 3972 ml Output Urine Total 465 ml # Voids 1 # Bowel Movements 1 General Appearance: Alert, Awake Cardiovascular: Regular Rate and Rhythm Respiratory: Other (scattered rhonchi at left base with a few rales/right fairly clear) GI: Soft and Non-Tender Extremities: Warm, Perfused, Other (no trigger point left ankle/with normal ROM) Result Diagram: 01/03/1820 01/03/18519 Assessment and Plan Problems: (1) Bacterial pneumonia Assessment & Plan: He did present with altered mental status and increased oxygen requirements. His chest x-ray did show a lingular infiltrate and his WBC was elevated. He has been started on empiric treatment with IV ceftriaxone and azithromycin. Blood cultures are negative thus far. (2) Hypernatremia Assessment & Plan: Due to dehydration. He is on 1/2NS IV fluids with some improvements. Watch labs. (3) Altered mental status Status: Acute Assessment & Plan: Secondary to pneumonia/underlying Down's Syndrome/Dementia. CT scan of the head showed atrophy, but no acute changes. Exam Sepsis Risk: Severe Sepsis Risk LAVERN DUEÑAS MD Jan 03, 2018 11:18
[2018-01-03] MEDS ORDERED: NS(*) 0.9% 250 ML BAG 250 ML IV PRN (11:35)
[2018-01-03] MEDS: ACETAMINOPHEN(*)1000 MG/100 ML 100 ML IVPB PRN (12:43)
--- NOTE | 2018-01-03 12:56 | SLP BEDSIDE SWALLOW EVALUATION ---
BEDSIDE SWALLOW ASSESSMENT Physician: Clinician: Beth Ortega MS, [facility]-[employer], Faith Simons [employer], Public [employer] Clinician Type of Assessment: Dysphagia Evaluation Patient: Zechariah Worley : 1960, 57yrs Evaluation Date: 01-03-18 BACKGROUND The patient is an 57 year old male admitted to [facility] on 01-02 after he was found unresponsive at the alf. He presented to the ER with shortness of breath and lethargy. An ST swallow evaluation was ordered to further evaluate swallow structure and function and cognitive-communication. PREVIOUS LEVEL OF FUNCTION: Primary Medical Diagnosis: Bacterial Pneumonia Past Medical History: Patient has a past medical history of a developmental delay, heart murmur, pneumonia, difficulty swallowing, reflux, cholecystitis, kidney stones, benign prostatic hypertrophy, gout, back pain, hard hearing, hypothyroidism, and depression, folliculitis. Patient has surgical history of appendectomy, cholecystectomy, neck fusion, and a family medical history of CAD. Prior Level of Function: Patient resides at [facility] and was consuming a regular diet with thin liquids. Pain Scale (0-10): Unable to quantify but appeared to be in pain, evidenced by facial grimace and writhing during swallow eval. RN was informed. LOC / Participation: somnolent, required verbal cues to remain alert. Follows instructions: <25%. Single-level. Orientation: Unable to determine, appears oriented to self. Functional Communication Deficits impact swallow function/safety, or response to therapy: Yes . Recommend 1-1 supervision with PO intake. DYSPHAGIA ASSESSMENT Sialorrhea: No Xerostomia: No Supplemental Oxygen Use: Yes. Nasal Cannula 4L Oxygen Saturation: 95-98%. Remains Stable, no observable fluctuations with PO. Pain with Swallow: Appears comfortable during swallow. Respiratory/Swallow Coordination: Typically patterned (ie. exhale/swallow/exhale) Pt was encountered in room. Non-verbal during assessment procedure. Required cues to remain alert. The oral mechanism was limited d/t following commands, however, informally patient presented with adequate lingual ROM and strength of oral musculature. Missing some upper dentition. Patient had difficulty maintaining an upright position during and leaned to the R with clinician supporting him. Pt was presented with PO trials of thin liquids via cup and straw, pureed, and soft solids. Required total assistance for feeding. Oral phase was characterized by anterior spillage with thin liquids, extended and vertical mastication pattern, and multiple swallows for oral clearance. Patient demonstrated oral holding with thin liquids for 5-10 seconds and was intermittingly responsive to verbal cues to initiate a swallow. Pharyngeal phase was characterized by coughing after thin liquids via straw. All other trials were tolerated with no overt or subtle s/sx of aspiration. Patient required multiple swallows to clear thin liquids, which may be indicative of pharyngeal residue. At this time, patient is judged to be at mild-moderate risk for aspiration d/t inconsistent coughing with thin liquids, oral phase deficits, respiratory comprise, and variable level of alertness. Recommend a Dysphagia II diet with thin liquids and 1-1 supervision during mealtimes. See compensatory strategies below. ST ASSESSMENT SUMMARY Aspiration Risk: mild to moderately elevated Dysphagia Outcome and Severity Scale (REZA): Level 3 Recommendations 1. Diet: Dysphagia II with thin liquids 2. Strategies: upright position, fully alert for PO intake, small bites/sips, slow rate of intake (make sure oral cavity is empty before delivering successive bites), no straws, verbally cue to swallow 3. Medications: crushed with approval from pharmacy, immersed in puree 4. Supervision: 1-1 with all PO Speech Therapy Need: Oral/Pharyngeal dysphagia increases risk of aspiration, dehydration, malnutrition. ST will address swallow deficits for safety and independence. Patient/ Caregiver training /education will be completed. PLAN OF CARE Short Term Goals 1. Caregiver will independently adhere to trained swallow strategies during 90% of opportunities to support patient tolerance of least restrictive diet and minimize risk for aspiration. 2. The patient will safely tolerate a regular diet and thin liquids with no s/s aspiration when provided with mod cues. Rehab Prognosis: good. Patient was previously consuming a regular diet. Suspect strong potential to improve, pending stabilization in medical status. Thank you for this referral. Beth Ortega MS, [employer], Faith Simons [employer], Public Safety Police Clinician Physician Signature Date [*] [facility]
[2018-01-03] MEDS: cefTRIAXone 2 GM VIAL IVP SCH (13:30)
[2018-01-03] MEDS ORDERED: OMEP-125 PO (15:18)
[2018-01-03] MEDS ORDERED: NS(*) 0.9% 250 ML BAG 250 ML IV ONE (15:50)
--- NOTE | 2018-01-03 15:55 | Medical Nutrition Therapy ---
Nutrition Anthropometrics Weight (Pounds): 130 Weight (Calculated Kilograms): 59.052 Pablo Nutrition Score: Probably Inadequate Pablo Nutrition Risk Score: 15 Dietary Referral Nutrition Risk Factors: Nutrition Risk Comment: Nutritional Diagnosis Nutritional Risk Acuity 2: Dysphagia Past Medical History: dementia, gout Nutrition Diagnosis: Swallowing Difficulties Nutrition Etiology: Physiological Causes Energy Requirement: 1730 (M- St- J) Protein Requirement: 60 (1GM/KG) Fluid Requirement: 1500 (25ML/KG) Diet Type: Dysphagia Stage 2 Nutrition Intervention: Cont diet as ordered, Encourage intake, Between meal supplement Additional Diet Restrictions: OFFER NUTR SUPPLMENT Nutrition Monitoring & Eval Nutrition Goals: Eat 75-100% Meal RD Patient Assessment Time: [address] Assessment Type: RD Assessment Patient Nutrition Acuity: 2-Moderate Follow Up Date: Jan 08, 2018 Nutritional Comment: 01/03 Pt admitted with pneumonia. Pt had SPL eval which indicated oral and pharyngeal dysphagia. Pt on Dysphagia 2 diet. BUN 36, creatinine 1.2, BG elvated up to 150. Alb 1.9. Will offer nutr supplment to increase kcal and protein intake. CARLOS ENRIQUE CABRERA Jan 03, 2018 15:55
[2018-01-03] MEDS: ALLOPURINOL 300 MG TAB PO SCH (17:00)
[2018-01-03] MEDS ORDERED: NS(*) 0.9% 1000 ML BAG 1,000 ML IV PRN (17:15)
[2018-01-03] MEDS: AZITHROMYCIN(*) 500 MG 500 MG in NS(*) 0.9% 250 ML BAG 250 ML IVPB SCH (17:18)
[2018-01-03] MEDS: KCL IV SCH (20:54)
[2018-01-03] MEDS: D5 IV SCH (20:54)
[2018-01-03] MEDS: 1/2 NS IV SCH (20:54)
[2018-01-04] VITALS (7 sets, daily range): BP systolic 69–77; BP diastolic 47–56
[2018-01-04] MEDS: D5 IV SCH ×2 (03:42→09:58)
[2018-01-04] MEDS: 1/2 NS IV SCH ×2 (03:42→09:58)
[2018-01-04] MEDS: KCL IV SCH ×2 (03:42→09:58)
[2018-01-04] MEDS: LEVOTHYROXINE SOD 0.125 MG TAB PO SCH (06:09)
[2018-01-04 06:32] LABS: PLATELET COUNT, AUTOMATED 360 K/uL (150-450)
[2018-01-04] MEDS: levETIRAcetam 500 MG TAB PO SCH ×2 (08:14→21:19)
[2018-01-04] MEDS: PANTOPRAZOLE SOD 40 MG TABEC PO SCH (08:14)
[2018-01-04] MEDS: DULoxetine HCL 30 MG CAPCR PO SCH (08:14)
[2018-01-04] MEDS: TAMSULOSIN HCL 0.4 MG CAP PO SCH (08:15)
[2018-01-04] MEDS: ENOXAPARIN 40 MG/0.4ML SYR SC SCH (08:15)
[2018-01-04] MEDS: cefTRIAXone 2 GM VIAL IVP SCH (13:17)
--- NOTE | 2018-01-04 15:19 | Hospitalist Progress Note ---
Subjective Progress Notes Subjective 57M admitted for PNA, GLEN overnight. Sleeping comfortably this am. Physical Exam Vital Signs Date Time Temp Pulse Resp B/P (MAP) Pulse Ox O2 Delivery O2 Flow Rate FiO2 01/04/18 15:05 99.3 95 20 72/47 (55) 92 Nasal Cannula 2.0 Intake and Output 01/04/18 07:00 Intake Total 4535 ml Output Total 725 ml Balance 3810 ml Intake Oral 60 ml IV Total 4475 ml Output Urine Total 725 ml # Bowel Movements 2 General Appearance: No Acute Distress, Afebrile Neuro: No Gross deficits Eyes: PERRLA ENT: Normal Cardiovascular: Normal Rhythm & Peripheral Pulses Respiratory: No Respiratory Distress GI: Soft and Non-Tender Extremities: Soft and Non Tender, Warm, Pulses, Perfused; No Edema Integumentary: Other (sacral decub ulcer) Result Diagram: 01/04/1853501/04/18535 Assessment and Plan Problems: (1) Bacterial pneumonia Assessment & Plan: He did present with altered mental status and increased oxygen requirements. His chest x-ray did show a lingular infiltrate and his WBC was elevated. He has been started on empiric treatment with IV ceftriaxone and azithromycin. Blood cultures are negative thus far. (2) Hypernatremia Assessment & Plan: Due to dehydration. He is on 1/2NS IV fluids with some improvements. Watch labs. (3) Altered mental status Status: Acute Assessment & Plan: Secondary to pneumonia/underlying Down's Syndrome/Dementia. CT scan of the head showed atrophy, but no acute changes. Minimally verbal at baseline. Exam Sepsis Risk: Severe Sepsis Risk HAMILTON BARTLETT DO Jan 04, 2018 15:19
[2018-01-04] MEDS: ALLOPURINOL 300 MG TAB PO SCH (16:32)
[2018-01-04] MEDS: D5 1/2 NS(*) 1000 ML BAG 1,000 ML IV PRN (16:33)
[2018-01-04] MEDS: AZITHROMYCIN(*) 500 MG 500 MG in NS(*) 0.9% 250 ML BAG 250 ML IVPB SCH (16:33)
--- NOTE | 2018-01-04 17:00 | Antimicrobial Stewardship ---
Antimicrobial Stewardship Empiricly appropriate: Yes (On Rocephin and Azithromycin IV for Bacterial Pneumonia with lingular infiltrate and increased WBC.) Approriate Cultures done: Yes (No growth to date) Reviewed for Drug Interaction: Yes Monitored for Toxicities: Yes Comment WBC have come down but continue to be elevated. O2 requirement down from 4 L to 2 L. Patient remains afebrile. IV to PO Opportunity: No Comment Patient has been on IV antibiotics for 3 days, however, he is having swallowing difficulties. Determine cumulative duration: Depends on severity and patient response, usually 7 to 10 days. THOMAS TALAVERA Jan 04, 2018 17:00
[2018-01-05] MEDS: D5 1/2 NS(*) 1000 ML BAG 1,000 ML IV PRN (00:24)
[2018-01-05 04:03] VITALS: BP 79/57
[2018-01-05] MEDS: LEVOTHYROXINE SOD 0.125 MG TAB PO SCH (05:19)
[2018-01-05 06:08] LABS: PLATELET COUNT, AUTOMATED 363 K/uL (150-450)
[2018-01-05] MEDS: TAMSULOSIN HCL 0.4 MG CAP PO SCH (09:55)
[2018-01-05] MEDS: PANTOPRAZOLE SOD 40 MG TABEC PO SCH (09:55)
[2018-01-05] MEDS: ENOXAPARIN 40 MG/0.4ML SYR SC SCH (09:56)
[2018-01-05] MEDS: DULoxetine HCL 30 MG CAPCR PO SCH (09:56)
[2018-01-05] MEDS: levETIRAcetam 500 MG TAB PO SCH ×2 (09:56→21:16)
[2018-01-05 12:07] VITALS: BP 72/60
[2018-01-05] MEDS: ACETAMINOPHEN(*)1000 MG/100 ML 100 ML IVPB PRN (12:10)
--- NOTE | 2018-01-05 13:52 | Hospitalist Progress Note ---
Subjective Progress Notes Subjective He was resting comfortably when we came in the room. He had no initial complaints. When asked about pain, it wasn't clear what he said. Physical Exam Vital Signs Date Time Temp Pulse Resp B/P (MAP) Pulse Ox O2 Delivery O2 Flow Rate FiO2 01/05/18 12:07 100.2 100 22 72/60 (64) 91 Nasal Cannula 2.0 Intake and Output 01/05/18 07:00 Intake Total 3911 ml Output Total 1500 ml Balance 2411 ml Intake Oral 420 ml IV Total 3491 ml Output Urine Total 1500 ml General Appearance: No Acute Distress (Awakened easily to voice) Cardiovascular: Other (Borderline tachy, regular, no m/r/g) Respiratory: Clear to Auscultation Extremities: No Edema Result Diagram: 01/05/1853901/05/18539 Assessment and Plan Problems: (1) Bacterial pneumonia Assessment & Plan: He did present with altered mental status and increased oxygen requirements. His chest x-ray did show a lingular infiltrate and his WBC was elevated. He has been started on empiric treatment with IV ceftriaxone and azithromycin. Blood cultures are negative thus far. He had a low grade fever today, but wbc is now normal. Continue current care. (2) Low blood pressure Status: Chronic Assessment & Plan: Likely this is partly a chronic issue. He had a SBP of 80's-100's in October when he was admitted for seizures, AMS and distal fibular fracture. Creatinine and lactate are wnl. Continue to follow. (3) Hypernatremia Status: Resolved Assessment & Plan: Due to dehydration. He was on 1/2NS IV fluids. He corrected at an appropriate rate. Now saline locked. (4) Altered mental status Status: Acute Assessment & Plan: Secondary to pneumonia/underlying Down's Syndrome/Dementia. CT scan of the head showed atrophy, but no acute changes. Minimally verbal at baseline. (5) Fracture of distal fibula Status: Acute Assessment & Plan: He has been in a boot for the last 8 weeks. He is getting Xrays today to reevaluate. He is working with therapy. Apparently, therapy was canceled at the [facility] because he wasn't participating in the care. The legal guardian is wanting the patient back at the [facility], so EFREN is working towards that. Exam Sepsis Risk: No Definite Risk MARCOS VILLEGAS MD Jan 05, 2018 13:52
[2018-01-05] MEDS: cefTRIAXone 2 GM VIAL IVP SCH (13:54)
--- NOTE | 2018-01-05 14:24 | RADIOLOGY IMAGING REPORT ---
FACILITY: [facility] [place] PATIENT NAME: Zechariah Worley : 1960 MR: [id number] V: [id number] EXAM DATE: ORDERING PHYSICIAN: MARCOS VILLEGAS TECHNOLOGIST: Location: [facility] [place] Patient: Zechariah Worley : 1960 Visit/Account:[id number] Date of Sevice: 01/05/2018 Exam type: TIBIA FIBULA LEFT History: follow up Comparison: Ankle series October 29, 2017. Findings: When compared the prior study again noted is the oblique fracture to the distal left fibula with some bridging callus noted. There is less soft tissue swelling present. No other fracture-dislocation o f the left tibia fibula seen IMPRESSION: 1. Healing fracture through the distal left fibula is noted Report Dictated By: Vee Ortiz MD at 01/05/2018 2:09 PM Report E-Signed By: Vee Ortiz MD at 01/05/2018 2:20 PM WSN:[email or web address]
[2018-01-05] MEDS: AZITHROMYCIN(*) 500 MG 500 MG in NS(*) 0.9% 250 ML BAG 250 ML IVPB SCH (17:20)
[2018-01-05] MEDS: ALLOPURINOL 300 MG TAB PO SCH (17:20)
[2018-01-05 19:23] VITALS: BP 116/70
[2018-01-05 23:02] VITALS: BP 153/97
[2018-01-06 05:52] VITALS: BP 146/74
[2018-01-06] MEDS: LEVOTHYROXINE SOD 0.125 MG TAB PO SCH (05:53)
[2018-01-06 06:54] LABS: PLATELET COUNT, AUTOMATED 376 K/uL (150-450)
[2018-01-06 08:47] VITALS: BP 88/66
[2018-01-06] MEDS ORDERED: INFLUENZA VIRUS VAC 0.5ML SYR IM ONLY ONE (09:00)
[2018-01-06] MEDS: PANTOPRAZOLE SOD 40 MG TABEC PO SCH (09:23)
[2018-01-06] MEDS: DULoxetine HCL 30 MG CAPCR PO SCH (09:23)
[2018-01-06] MEDS: levETIRAcetam 500 MG TAB PO SCH ×2 (09:23→20:55)
[2018-01-06] MEDS: ENOXAPARIN 40 MG/0.4ML SYR SC SCH (09:23)
[2018-01-06] MEDS: TAMSULOSIN HCL 0.4 MG CAP PO SCH (09:24)
--- NOTE | 2018-01-06 11:58 | Hospitalist Progress Note ---
Subjective Progress Notes Subjective He is awake and alert, but does not interact very much. Physical Exam Vital Signs Date Time Temp Pulse Resp B/P (MAP) Pulse Ox O2 Delivery O2 Flow Rate FiO2 01/06/18 08:47 99.0 98 32 88/66 (73) 92 Blow-by 5.0 Intake and Output 01/06/18 07:00 Intake Total 240 ml Output Total 1850 ml Balance -1610 ml Intake Oral 240 ml Output Urine Total 1850 ml # Voids 1 # Bowel Movements 1 General Appearance: Alert, Awake Cardiovascular: Regular Rate and Rhythm Respiratory: Other (scattered rhonchi on left/fairly clear on right) Chest: No Tenderness, Other (pacer right upper chest) GI: Soft and Non-Tender Extremities: Warm, Perfused Integumentary: Other (sacral decubitus dressed) Result Diagram: 01/06/1863401/06/18634 Imaging PATIENT NAME: Zechariah Worley : 1960 MR: [id number] V: [id number] EXAM DATE: [id number] ORDERING PHYSICIAN: MARCOS VILLEGAS TECHNOLOGIST: Location: [facility] Patient: Zechariah Worley : 1960 Visit/Account:[id number] Date of Sevice: 01/05/2018 Exam type: TIBIA FIBULA LEFT History: follow up Comparison: Ankle series October 29, 2017. Findings: When compared the prior study again noted is the oblique fracture to the distal left fibula with some bridging callus noted. There is less soft tissue swelling present. No other fracture-dislocation of the left tibia fibula seen IMPRESSION: 1. Healing fracture through the distal left fibula is noted Report Dictated By: Vee Ortiz MD at 01/05/2018 2:09 PM Report E-Signed By: Vee Ortiz MD at 01/05/2018 2:20 PM WSN:[email or web address] Assessment and Plan Problems: (1) Bacterial pneumonia Assessment & Plan: He did present with altered mental status and increased oxygen requirements. His chest x-ray did show a lingular infiltrate and his WBC was elevated. He has been started on empiric treatment with IV ceftriaxone and azithromycin. Blood cultures are negative thus far. WBC count has normalized. He has some low grade fever periodically, but clinically he has improved. Continue current care. (2) Low blood pressure Status: Chronic Assessment & Plan: Likely this is partly a chronic issue. He had a SBP of 80's-100's in October when he was admitted for seizures, AMS and distal fibular fracture. Creatinine and lactate are in normal range. Continue to follow. (3) Hypernatremia Status: Resolved Assessment & Plan: Due to dehydration. He was on 1/2NS IV fluids. He corrected at an appropriate rate. Now saline locked. (4) Fracture of distal fibula Status: Acute Assessment & Plan: He has been in a boot for the last 8 weeks. X-rays show healing/healed fracture. He is working with therapy. Apparently, therapy was canceled at the [facility] because he wasn't participating in the care. The legal guardian is wanting the patient back at the [facility], so SW is working towards that. (5) Altered mental status Status: Acute Assessment & Plan: Secondary to pneumonia/underlying Down's Syndrome/Dementia. CT scan of the head showed atrophy, but no acute changes. Minimally verbal at baseline. Returning to [facility] facility may be difficult due to dementia more than anything else. Exam Sepsis Risk: No Definite Risk LAVERN DEUÑAS MD Jan 06, 2018 11:58
[2018-01-06 14:17] VITALS: BP 109/69
[2018-01-06] MEDS: cefTRIAXone 2 GM VIAL IVP SCH (14:21)
[2018-01-06] MEDS: AZITHROMYCIN(*) 500 MG 500 MG in NS(*) 0.9% 250 ML BAG 250 ML IVPB SCH (16:18)
[2018-01-06] MEDS: ALLOPURINOL 300 MG TAB PO SCH (16:18)
[2018-01-06 19:14] VITALS: BP 113/80
[2018-01-07] VITALS (7 sets, daily range): BP systolic 84–135; BP diastolic 49–92
[2018-01-07] MEDS: LEVOTHYROXINE SOD 0.125 MG TAB PO SCH (05:40)
[2018-01-07] MEDS: levETIRAcetam 500 MG TAB PO SCH ×2 (09:37→20:44)
[2018-01-07] MEDS: ENOXAPARIN 40 MG/0.4ML SYR SC SCH (09:37)
[2018-01-07] MEDS: DULoxetine HCL 30 MG CAPCR PO SCH (09:37)
[2018-01-07] MEDS: PANTOPRAZOLE SOD 40 MG TABEC PO SCH (09:50)
[2018-01-07] MEDS: TAMSULOSIN HCL 0.4 MG CAP PO SCH (09:50)
--- NOTE | 2018-01-07 11:42 | Hospitalist Progress Note ---
Subjective Progress Notes Subjective 57M admitted for CAP. Affebrile, increased O2 needs possible some ongoing aspiration and pneumonitis associated with it. Physical Exam Vital Signs Date Time Temp Pulse Resp B/P (MAP) Pulse Ox O2 Delivery O2 Flow Rate FiO2 01/07/18 07:05 95 Oxy Mask 5.0 01/07/18 06:57 98.3 92 20 88/56 (67) 95 Intake and Output 01/07/18 07:00 Intake Total 699 ml Output Total 1000 ml Balance -301 ml Intake Oral 420 ml IV Total 279 ml Output Urine Total 1000 ml General Appearance: No Acute Distress Neuro: No Gross deficits Eyes: PERRLA Cardiovascular: Normal Rhythm & Peripheral Pulses Respiratory: Other (increase in O2 needs) GI: Soft and Non-Tender Extremities: Soft and Non Tender, Warm, Pulses, Perfused Integumentary: Other (decubitus ulcer on sacrum) Result Diagram: 01/06/1863401/06/18634 Assessment and Plan Problems: (1) Bacterial pneumonia Assessment & Plan: He did present with altered mental status and increased oxygen requirements. His chest x-ray did show a lingular infiltrate and his WBC was elevated. He has been started on empiric treatment with IV ceftriaxone and azithromycin. Blood cultures are negative thus far. WBC count has normalized. He has some low grade fever periodically, but clinically he has improved. Continue current care, concern for continued aspiration. (2) Low blood pressure Status: Chronic Assessment & Plan: Likely this is partly a chronic issue. He had a SBP of 80's-100's in October when he was admitted for seizures, AMS and distal fibular fracture. Creatinine and lactate are in normal range. Continue to follow. (3) Hypernatremia Status: Resolved Assessment & Plan: Due to dehydration. He was on 1/2NS IV fluids. He corrected at an appropriate rate. Now saline locked. (4) Fracture of distal fibula Status: Acute Assessment & Plan: He has been in a boot for the last 8 weeks. X-rays show healing/healed fracture. He is working with therapy. Apparently, therapy was canceled at the [facility] because he wasn't participating in the care. The legal guardian is wanting the patient back at the [facility], so EFREN is working towards that. (5) Altered mental status Status: Acute Assessment & Plan: Secondary to pneumonia/underlying Down's Syndrome/Dementia. CT scan of the head showed atrophy, but no acute changes. Minimally verbal at baseline. Returning to [facility] facility may be difficult due to dementia more than anything else. Exam Sepsis Risk: No Definite Risk HURST HAMILTON LOONEY DO Jan 07, 2018 11:42
[2018-01-07] MEDS: cefTRIAXone 2 GM VIAL IVP SCH (14:20)
[2018-01-07] MEDS: ALLOPURINOL 300 MG TAB PO SCH (17:01)
[2018-01-07] MEDS: AZITHROMYCIN(*) 500 MG 500 MG in NS(*) 0.9% 250 ML BAG 250 ML IVPB SCH (17:04)
[2018-01-07] MEDS: ACETAMINOPHEN(*)1000 MG/100 ML 100 ML IVPB PRN (22:45)
[2018-01-08 05:50] VITALS: BP 78/54
[2018-01-08] MEDS: LEVOTHYROXINE SOD 0.125 MG TAB PO SCH (05:55)
[2018-01-08 07:05] VITALS: BP 88/56
--- NOTE | 2018-01-08 08:41 | RADIOLOGY IMAGING REPORT ---
FACILITY: [facility] PATIENT NAME: Zechariah Worley : 1960 MR: [id number] V: [id number] EXAM DATE: ORDERING PHYSICIAN: LAVERN DUEÑAS TECHNOLOGIST: Location: [facility] [place] Patient: Zechariah Worley : 1960 Visit/Account:[id number] Date of Sevice: 01/08/2018 Portable chest, one view. HISTORY: Pneumonia. COMPARISON: 01/02/2018. The patient is rotated to the left. A pulse generator projects on the right chest. Right subclavian e lectrode tips project on the right atrium and the cardiac ventricles. Oxygen tubing projects on the u pper chest. The heart size is normal. The mediastinum is not widened. Pulmonary vessels are mildly en gorged. Patchy interstitial and airspace infiltrates are present in both lungs, most prominent in the left upper lung and both lung bases, increased compared to previous. The pleural surfaces are unrema rkable. Surgical clips are present in the right upper abdomen. No acute bony abnormalities. IMPRESSION: Worsening bilateral lung infiltrates consistent with pneumonia. Other etiologies are possible but les s likely. Report Dictated By: Hao Morillo MD at 01/08/2018 8:33 AM Report E-Signed By: Hao Morillo MD at 01/08/2018 8:37 AM WSN:[email or web address]
[2018-01-08] MEDS: ENOXAPARIN 40 MG/0.4ML SYR SC SCH (09:09)
[2018-01-08] MEDS: DULoxetine HCL 30 MG CAPCR PO SCH (09:09)
[2018-01-08] MEDS: PANTOPRAZOLE SOD 40 MG TABEC PO SCH (09:09)
[2018-01-08] MEDS: levETIRAcetam 500 MG TAB PO SCH ×2 (09:09→20:50)
[2018-01-08] MEDS: TAMSULOSIN HCL 0.4 MG CAP PO SCH (09:09)
--- NOTE | 2018-01-08 10:53 | Hospitalist Progress Note ---
Subjective Progress Notes Subjective He has been more awake and alert, but has not been able to feed himself or ambulate up to this point. Physical Exam Vital Signs Date Time Temp Pulse Resp B/P (MAP) Pulse Ox O2 Delivery O2 Flow Rate FiO2 01/08/18 07:05 97.8 88 22 88/56 (67) 93 Oxy Mask 5.0 Intake and Output 01/08/18 07:00 Intake Total 178 ml Output Total 975 ml Balance -797 ml Intake Oral 178 ml Output Urine Total 975 ml General Appearance: Alert, Awake Neuro: Other (he moves all four extremities) Cardiovascular: Regular Rate and Rhythm Respiratory: Other (scattered rhonchi bilaterally with a few rales at bases) GI: Soft and Non-Tender Musculoskeletal: Other (normal ROM left ankle/no trigger points) Extremities: Warm, Perfused Result Diagram: 01/06/1863401/06/18634 Assessment and Plan Problems: (1) Bacterial pneumonia Assessment & Plan: He did present with altered mental status and increased oxygen requirements. His chest x-ray did show a lingular infiltrate and his WBC was elevated. He was started on empiric treatment with IV ceftriaxone and azithromycin. Blood cultures are negative thus far. WBC count did normalize. He has some low grade fever periodically, but clinically he has improved. There is significant concern for continued aspiration. Will check CXR. Will modify antibiotics for possible aspiration. (2) Low blood pressure Status: Chronic Assessment & Plan: Likely this is partly a chronic issue. He had a SBP of 80's-100's in October when he was admitted for seizures, AMS and distal fibular fracture. Creatinine and lactate are in normal range. Continue to follow. (3) Hypernatremia Status: Resolved Assessment & Plan: Due to dehydration. He was on 1/2NS IV fluids. He corrected at an appropriate rate. Now saline locked. (4) Fracture of distal fibula Status: Acute Assessment & Plan: He has been in a boot for the last 8 weeks. X-rays show healing/healed fracture. He is working with therapy. Apparently, therapy was canceled at the [facility] because he wasn't participating in the care. The legal guardian is wanting the patient back at the [facility], but that may be difficult to achieve if he is not able to do more. Will discuss with his POA. (5) Altered mental status Status: Acute Assessment & Plan: Secondary to pneumonia/underlying Down's Syndrome/Dementia. CT scan of the head showed atrophy, but no acute changes. Minimally verbal at baseline. Returning to [facility] facility may be difficult due to dementia more than anything else. Exam Sepsis Risk: No Definite Risk LAVERN DUEÑAS MD Jan 08, 2018 10:53
[2018-01-08 11:18] VITALS: BP 89/58
[2018-01-08] MEDS: PIPERACILLIN/TAZO*3.375GM VIAL 3.375 GM in NS(*) 0.9% 100 ML ADDVANT BAG 100 ML IVPB SCH ×3 (12:26→23:31)
[2018-01-08 15:22] VITALS: BP 102/93
--- NOTE | 2018-01-08 15:57 | Medical Nutrition Therapy ---
Nutrition Anthropometrics Weight (Pounds): 130 Weight (Calculated Kilograms): 59.052 Pablo Nutrition Score: Probably Inadequate Pablo Nutrition Risk Score: 13 Dietary Referral Nutrition Risk Factors: Nutrition Risk Comment: Nutritional Diagnosis Nutritional Risk Acuity 2: Pr Appetite > 3d, Dysphagia, Swallowing Problem Past Medical History: dementia, gout Nutritional Acuity: 2-Moderate Nutrition Diagnosis: Swallowing Difficulties Nutrition Etiology: Physiological Causes Nutrition Problem/Etiology/Sym: AEB Oral/Pharyngeal dysphagia identified by SPL Energy Requirement: 1730 (M- St- J) Protein Requirement: 60 (1GM/KG) Fluid Requirement: 1500 (25ML/KG) Diet Type: Dysphagia Stage 1 Nutrition Intervention: Cont diet as ordered, Encourage intake, Between meal supplement Additional Diet Restrictions: PROVIDE NUTR SUPPLMENT WITH EACH MEAL Diet Comment To RSA: PUT PROTEIN PRODUCTS IN APPROPRIATE FOODS Nutrition Monitoring & Eval Nutrition Goals: Eat 75-100% Meal Nutrition Follow-Up: Poor Intake RD Patient Assessment Time: [address] Assessment Type: RD Re-Assessment Patient Nutrition Acuity: 2-Moderate Follow Up Date: Jan 12, 2018 Nutritional Comment: 01/03 Pt admitted with pneumonia. Pt had SPL eval which indicated oral and pharyngeal dysphagia. Pt on Dysphagia 2 diet. BUN 36, creatinine 1.2, BG elvated up to 150. Alb 1.9. Will offer nutr supplment to increase kcal and protein intake. JE 01/08 Diet changed to dysphagia 1. Intake average 22% with only 1 nutr supplment reported. Alb declined to 1.7. Will f/u to ensure a nutr supplment is provided at each meal. No new wt. Will cont to monitor. CARLOS ENRIQUE CABRERA Jan 08, 2018 15:57
[2018-01-08] MEDS: ALLOPURINOL 300 MG TAB PO SCH (17:28)
[2018-01-08 19:14] VITALS: BP 108/76
[2018-01-08] MEDS: ACETAMINOPHEN 500 MG TAB PO PRN (23:30)
[2018-01-08 23:35] VITALS: BP 125/70
[2018-01-09] MEDS: LEVOTHYROXINE SOD 0.125 MG TAB PO SCH (05:28)
[2018-01-09] MEDS: PIPERACILLIN/TAZO*3.375GM VIAL 3.375 GM in NS(*) 0.9% 100 ML ADDVANT BAG 100 ML IVPB SCH ×3 (05:29→17:28)
[2018-01-09 05:40] VITALS: BP 78/48
[2018-01-09 05:51] LABS: PLATELET COUNT, AUTOMATED 319 K/uL (150-450)
[2018-01-09 07:22] VITALS: BP 74/42
[2018-01-09] MEDS: PANTOPRAZOLE SOD 40 MG TABEC PO SCH (09:01)
[2018-01-09] MEDS: DULoxetine HCL 30 MG CAPCR PO SCH (09:01)
[2018-01-09] MEDS: TAMSULOSIN HCL 0.4 MG CAP PO SCH (09:01)
[2018-01-09] MEDS: ENOXAPARIN 40 MG/0.4ML SYR SC SCH (09:01)
[2018-01-09] MEDS: levETIRAcetam 500 MG TAB PO SCH ×2 (09:02→21:09)
[2018-01-09 12:14] VITALS: BP 84/60
[2018-01-09] MEDS ORDERED: NS(*) 0.9% 250 ML BAG 250 ML ONE (12:23)
--- NOTE | 2018-01-09 12:23 | Hospitalist Progress Note ---
Subjective Progress Notes Subjective Staff reporting that he ate well this morning and no problems overnight. Physical Exam Vital Signs Date Time Temp Pulse Resp B/P (MAP) Pulse Ox O2 Delivery O2 Flow Rate FiO2 01/09/18 12:14 98.8 85 12 84/60 (68) 92 Nasal Cannula 1.5 Intake and Output0 01/09/18 06:59 Intake Total 787 ml Output Total 500 ml Balance 287 ml Intake Oral 0 ml IV Total 787 ml Output Urine Total 500 ml # Bowel Movements 2 General Appearance: Alert, Awake, No Acute Distress Cardiovascular: Regular Rate and Rhythm Respiratory: Clear to Auscultation (However, he doesn't take deep breaths) Result Diagram: 01/09/1851401/09/18514 Assessment and Plan Problems: (1) Bacterial pneumonia Assessment & Plan: He did present with altered mental status and increased oxygen requirements. His chest x-ray did show a lingular infiltrate and his WBC was elevated. He was started on empiric treatment with IV ceftriaxone and azithromycin. Blood cultures are negative thus far. WBC count did normalize. He has some low grade fever periodically, but clinically he has improved. There is significant concern for continued aspiration and is being followed by . Repeat CXR showed bibasilar infiltrates,s o has been converted to Zosyn. He is on a dysphagia 1 diet with thin liquids. No aspiration events in the last couple of days. (2) Fracture of distal fibula Status: Acute Assessment & Plan: He has been in a boot for the last 8 weeks. X-rays show healing/healed fracture. Apparently, therapy was canceled at the [facility] because he wasn't participating in the care. The legal guardian is wanting the patient back at the [facility], but that may be difficult to achieve if he is not able to do more. The plan is for the patient to go to [facility] when he is doing well medically with the pneumonia. (3) Low blood pressure Status: Chronic Assessment & Plan: Likely this is partly a chronic issue. He had a SBP of 80's-100's in October when he was admitted for seizures, AMS and distal fibular fracture. Creatinine and lactate are in normal range. Continue to follow. (4) Hypernatremia Status: Resolved Assessment & Plan: Due to dehydration. He was on 1/2NS IV fluids. He corrected at an appropriate rate. Now saline locked. (5) Altered mental status Status: Acute Assessment & Plan: Secondary to pneumonia/underlying Down's Syndrome/Dementia. CT scan of the head showed atrophy, but no acute changes. Minimally verbal at baseline. Returning to [facility] facility may be difficult due to dementia more than anything else. Exam Sepsis Risk: No Definite Risk MARCOS VILLEGAS MD Jan 09, 2018 12:23
[2018-01-09 15:34] VITALS: BP 104/72
[2018-01-09] MEDS: ALLOPURINOL 300 MG TAB PO SCH (17:27)
[2018-01-09 21:06] VITALS: BP 110/64
[2018-01-09] MEDS: ACETAMINOPHEN 500 MG TAB PO PRN (21:46)
[2018-01-10] MEDS: PIPERACILLIN/TAZO*3.375GM VIAL 3.375 GM in NS(*) 0.9% 100 ML ADDVANT BAG 100 ML IVPB SCH ×2 (00:02→05:25)
[2018-01-10 03:51] VITALS: BP 90/51
[2018-01-10] MEDS: LEVOTHYROXINE SOD 0.125 MG TAB PO SCH (05:25)
[2018-01-10 07:23] VITALS: BP 108/77
[2018-01-10 09:16] LABS: PLATELET COUNT, AUTOMATED 346 K/uL (150-450)
[2018-01-10] MEDS: DULoxetine HCL 30 MG CAPCR PO SCH (09:37)
[2018-01-10] MEDS: levETIRAcetam 500 MG TAB PO SCH ×2 (09:37→21:00)
[2018-01-10] MEDS: PANTOPRAZOLE SOD 40 MG TABEC PO SCH (09:37)
[2018-01-10] MEDS: TAMSULOSIN HCL 0.4 MG CAP PO SCH (09:37)
[2018-01-10] MEDS: ENOXAPARIN 40 MG/0.4ML SYR SC SCH (09:37)
[2018-01-10] MEDS ORDERED: BARIUM SULFATE 240 ML ORAL SUS (NECTAR) ONE (10:42)
[2018-01-10] MEDS ORDERED: BARIUM SULFATE 148 GM POWDER ONE (10:42)
[2018-01-10 11:01] VITALS: BP 95/56
--- NOTE | 2018-01-10 11:56 | Hospitalist Progress Note ---
Subjective Progress Notes Subjective This patient was admitted for pneumonia. He had no acute events overnight. Patient Complains of: Cardiovascular: No: Chest Pain Respiratory: No: Shortness of Breath Physical Exam Vital Signs Date Time Temp Pulse Resp B/P (MAP) Pulse Ox O2 Delivery O2 Flow Rate FiO2 01/10/18 11:01 97.4 90 21 95/56 (69) 90 01/10/18 08:01 Nasal Cannula 3.0 Intake and Output 01/10/18 07:00 Intake Total 1283 ml Output Total 550 ml Balance 733 ml Intake Oral 857 ml IV Total 426 ml Output Urine Total 550 ml # Bowel Movements 1 Cardiovascular: Regular Rate and Rhythm Respiratory: Clear to Auscultation Result Diagram: 01/10/1890701/09/18 0515 Assessment and Plan Problems: (1) Bacterial pneumonia Assessment & Plan: He did present with altered mental status and increased oxygen requirements. His chest x-ray did show a lingular infiltrate and his WBC was elevated. He was started on empiric treatment with IV ceftriaxone and azithromycin. Blood cultures are negative. He was switched to Zosyn on the after a recurrent aspiration event and worsening x-ray findings. He has not had any recurrent fever and his WBC is normal. We have stopped all antibiotics today. (2) Fracture of distal fibula Status: Acute Assessment & Plan: He has been in a boot for the last 8 weeks. X-rays show healing/healed fracture. Apparently, therapy was canceled at the [facility] because he wasn't participating in the care. The legal guardian is wanting the patient back at the [facility], but that may be difficult to achieve if he is not able to do more. The plan is for the patient to go to [facility] when he is doing well medically with the pneumonia. (3) Low blood pressure Status: Chronic Assessment & Plan: Likely this is partly a chronic issue. He had a SBP of 80's-100's in October when he was admitted for seizures, AMS and distal fibular fracture. Creatinine and lactate are in normal range. Continue to follow. (4) Hypernatremia Status: Resolved Assessment & Plan: Due to dehydration. He was on 1/2NS IV fluids. He corrected at an appropriate rate. Now saline locked. (5) Altered mental status Status: Acute Assessment & Plan: Secondary to pneumonia/underlying Down's Syndrome/Dementia. CT scan of the head showed atrophy, but no acute changes. Minimally verbal at baseline. Returning to [facility] facility may be difficult due to dementia more than anything else. Exam Sepsis Risk: No Definite Risk RAFAELA DODGE DO Jan 10, 2018 11:56
[2018-01-10 14:20] VITALS: BP 97/54
[2018-01-10] MEDS ORDERED: ACETAMINOPHEN 325 MG TAB PO PRN (14:30)
--- NOTE | 2018-01-10 14:57 | RADIOLOGY IMAGING REPORT ---
FACILITY: [facility] PATIENT NAME: Zechariah Worley : 1960 MR: [id number] V: [id number] EXAM DATE: ORDERING PHYSICIAN: MARCOS VILLEGAS TECHNOLOGIST: Location: [facility] Patient: Zechariah Worley : 1960 Visit/Account:[id number] Date of Sevice: 01/10/2018 Exam type: ESOPH VIDEO SWALLOWING History: high aspiration risk Comparison: None. Findings: The modified barium swallow was performed by the speech pathologist. Fluoroscopic assistance was pro vided. The patient received various liquids and food substances and a crushed barium tablet. The pa tient did demonstrate oral dysphagia pharyngeal dysphasia laryngeal penetration and possible esophage al dysphasia. Please see the speech pathologist report for complete details. The fluoroscopy dose a francisco product was 340 Sethi per meter squared IMPRESSION: 1. As above Report Dictated By: Vee Ortiz MD at 01/10/2018 2:51 PM Report E-Signed By: Vee Ortiz MD at 01/10/2018 2:53 PM WSN:[id number]
--- NOTE | 2018-01-10 16:12 | SLP MODIFIED BARIUM SWALLOW ---
Speech Language Pathology Modified Barium Swallow Evaluation Report Ordering Physician: Viral Greenfield Clinician: Beth Ortega MS, [facility] [facility], Faith Simons, [facility], Document Reviewer Clinician Type of Assessment: Modified Barium Swallow Study Patient: Zechariah Worley : 1960, 57yrs Evaluation Date: 01-10-18 BACKGROUND The patient is a 57 year old male admitted to [facility] on 01-02 after he was found unresponsive at the [facility]. He presented to the ER with shortness of breath and lethargy, and was diagnosed with bacterial pneumonia. A clinical swallow evaluation was ordered following hospital admission to further evaluate swallow structure and function due to RN reports of poor swallow initiation and suspicion of aspiration pneumonia. The pt clinically presented with moderate oral and suspected pharyngeal dysphagia characterized by oral holding, inconsistent and incomplete mastication, intermittent cough response and vocal changes with thin liquids, and multiple swallows to clear material. A modified barium swallow study (MBSS) was ordered to objectively analyze oropharyngeal swallow status and develop appropriate recommendations for diet modifications and compensatory strategies to minimize risk for aspiration. Non-verbal Oral Structure and Function: missing some upper dentition. Unable to follow commands for formal oral mechanism assessment. Pain with Swallow: appears comfortable during swallow Current Diet: dysphagia II solids, thin liquids MODIFIED BARIUM SWALLOW In conjunction with radiology, analyze the pt seated lateral view with [employer] assisted trials of the following consistencies: thin liquids via tsp, cup, and straw, pureed solids, mechanically altered/mixed solids, advanced solids, and a 1cm barium pill (cut in half; immersed in applesauce). * Indicates impairment ORAL PHASE: moderate impairments *Lip Closure: anterior spillage coating labial surfaces *Tongue Control during Bolus Hold: premature posterior loss of bolus with large volume cup sip of thin liquids and with mixed texture trials. *Bolus preparation and mastication: segmented mastication, required cues to continue to cycle. *Bolus transport/Lingual motion: delayed propulsion *Oral Residue: trace to minimal residue collection on oral lingual surface and base of tongue with thin liquids and pureed solids. Stasis in buccal cavities was noted with soft textures. PHARYNGEAL PHASE: moderate impairments Initiation of Pharyngeal Swallow: initiated at the level of valleculae, WFL Soft palate elevation: WFL Laryngeal elevation: WFL Anterior hyolaryngeal excursion: WFL Epiglottic inversion: WFL *Laryngeal Vestibule Closure: contrast noted between arytenoids and epiglottis resulting in minimal penetration during swallow. *Pharyngeal stripping wave: diminished wave form with suspected impact of hardware from cervical spinal fusion. UES opening: WFL; mild residue witnessed in pyriforms, however, appeared to be a result of decreased pressure generation vs. decreased UES relaxation. *Tongue base retraction: reduced; mild-moderate contrast witnessed between tongue base and posterior pharyngeal wall. *Pharyngeal residue: Residue collection on base of tongue (trace), in valleculae (moderate to severe), and in pyriforms (mild to moderate) with pureed and soft solids. No notable residue observed with thin liquids. ESOPHAGEAL STAGE Esophageal Clearance: normal The patients oral phase deficits appear to be d/t cognitive deficits vs. underlying oral weakness. This resulted in decreased recognition of material in oral cavity with oral holding, segmented mastication, delayed AP transit, and need for cues to complete oral phase of swallow. Pt performance increased with softer textures (e.g., dysphagia II vs. dysphagia III) and direct continuous verbal cueing. Pharyngeally, the pt exhibited decreased tongue base retraction resulting in poor pressure generation for effective pharyngeal clearance. Moderate to severe residue was witnessed in the valleculae with mechanically altered solids. Diminished pharyngeal stripping wave was also noted and appeared to be impacted by hardware from cervical spinal fusion. This further reduced clearance from the valleculae and contributed to reside noted in the pyriform sinuses. Trace amounts of penetration observed during thin liquid trials, due to incomplete laryngeal vestibule closure. Aspiration did not occur. The patient was also analyzed in the lateral view with 1 cm barium pill, cut in half and immersed in puree. Pt partially masticated pill prior to deglutition and expectorated 1/3 of material. Penetration/Aspiration Scale (PAS)*: Thin liquids (tsp, cup sip, straw): Score of 2, Material enters the airway, remains above the vocal folds, and is ejected from the airway. Thin liquid component with trials of mixed consistencies: Score of 2, Material enters the airway, remains above the vocal folds, and is ejected from the airway. Thin liquid residue following extensive delay: Score of 3, Material enters the airway, remains above the vocal folds, and is not ejected from the airway. All other consistencies: Score of 1, Material does not enter airway *(Ángela et al. 1996) SUMMARY and RECOMMENDATIONS Dysphagia Outcome Severity Scale: Level 3; moderate dysphagia. The patient needs constant 1-1 supervision/total assistance with PO intake. Aspiration Risk: moderately elevated, due to the severity of pharyngeal residue and oral phase deficits. The patient is at risk for aspirating residual material in oral and pharyngeal cavities. Cognitive deficits further elevate risk for aspiration with negative impact on the sequencing of oral and pharyngeal phase of swallow. Recommended Diet: Dyphagia II Recommended Liquids: Thin Liquids Recommended form of Medications: crushed with approval from pharmacy, immersed in puree. Compensatory Strategies: 1-1 with all PO intake, small bites/sips, alternate bites/sips, verbally cue to swallow, cue to encourage mastication cycle, controlled straw sips, check for pocketing after meals, allow ample time to participate in meals Speech Therapy: continue ST POC3x/week in hospital, continue ST in discharge environment with emphasis on caregiver instruction. Thank you for this referral. Please call [phone] to contact the [employer]. Beth Ortega M.S., CCC-[employer] Faith Simons [facility], Document Reviewer Clinician Physician Signature Date [*] MTDD
[2018-01-10] MEDS: ALLOPURINOL 300 MG TAB PO SCH ×2 (17:00→17:25)
[2018-01-10 19:32] VITALS: BP 103/71
[2018-01-11] MEDS: LEVOTHYROXINE SOD 0.125 MG TAB PO SCH (05:40)
[2018-01-11 07:03] VITALS: BP 93/62
[2018-01-11] MEDS: PANTOPRAZOLE SOD 40 MG TABEC PO SCH (08:35)
[2018-01-11] MEDS: levETIRAcetam 500 MG TAB PO SCH ×2 (08:35→21:17)
[2018-01-11] MEDS: TAMSULOSIN HCL 0.4 MG CAP PO SCH ×2 (08:35→21:17)
[2018-01-11] MEDS: DULoxetine HCL 30 MG CAPCR PO SCH (08:35)
[2018-01-11] MEDS: ENOXAPARIN 40 MG/0.4ML SYR SC SCH (08:35)
[2018-01-11 10:20] VITALS: BP 91/60
--- NOTE | 2018-01-11 10:59 | Hospitalist Progress Note ---
Subjective Progress Notes Subjective No concerns from nursing staff. He had no acute events overnight. Patient Complains of: Cardiovascular: No: Chest Pain Respiratory: No: Shortness of Breath Physical Exam Vital Signs Date Time Temp Pulse Resp B/P (MAP) Pulse Ox O2 Delivery O2 Flow Rate FiO2 01/11/18 10:20 98.5 86 18 91/60 (70) 97 Nasal Cannula 3.0 Intake and Output 01/11/18 07:00 Intake Total 540 ml Output Total 625 ml Balance -85 ml Intake Oral 540 ml Output Urine Total 625 ml # Bowel Movements 1 General Appearance: Alert, Awake, No Acute Distress, Afebrile Neuro: No Gross deficits Cardiovascular: Regular Rate and Rhythm Respiratory: No Respiratory Distress, Clear to Auscultation GI: Soft and Non-Tender Psych: Alert & Oriented X3, Appropriate Mood & Affect Result Diagram: 01/10/1808 01/09/18 0515 Assessment and Plan Problems: (1) Bacterial pneumonia Assessment & Plan: He did present with altered mental status and increased oxygen requirements. His chest x-ray did show a lingular infiltrate and his WBC was elevated. He was started on empiric treatment with IV ceftriaxone and azit hromycin. Blood cultures are negative. He was switched to Zosyn on the after a recurrent aspiration event and worsening x-ray findings. He has not had any recurrent fever and his WBC is normal. We have stopped all antibiotics 01/10. (2) Fracture of distal fibula Status: Acute Assessment & Plan: He has been in a boot for the last 8 weeks. X-rays show healing/healed fracture. Apparently, therapy was canceled at the [facility] because he wasn't participating in the care. The legal guardian is wanting the patient back at the [facility], but that may be difficult to achieve if he is not able to do more. We are awaiting placement for patient from social work. (3) Low blood pressure Status: Chronic Assessment & Plan: Likely this is partly a chronic issue. He had a SBP of 80's-100's in October when he was admitted for seizures, AMS and distal fibular fracture. Creatinine and lactate are in normal range. Continue to follow. (4) Hypernatremia Status: Resolved Assessment & Plan: Due to dehydration. He was on 1/2NS IV fluids. He corrected at an appropriate rate. (5) Altered mental status Status: Acute Assessment & Plan: Secondary to pneumonia/underlying Down's Syndrome/Dementia. CT scan of the head showed atrophy, but no acute changes. Minimally verbal at baseline. Returning to [facility] facility may be difficult due to dementia more than anything else. Exam Sepsis Risk: No Definite Risk KASEY CALVERT FIBERGLASSER Jan 11, 2018 10:59
--- NOTE | 2018-01-11 14:29 | Medical Nutrition Therapy ---
Nutrition Anthropometrics Weight (Pounds): 130 Weight (Calculated Kilograms): 59.052 Pablo Nutrition Score: Probably Inadequate Pablo Nutrition Risk Score: 13 Dietary Referral Nutrition Risk Factors: Nutrition Risk Comment: Nutritional Diagnosis Nutritional Risk Acuity 2: Pr Appetite > 3d, Dysphagia, Swallowing Problem Past Medical History: dementia, gout Nutritional Acuity: 2-Moderate Nutrition Diagnosis: Swallowing Difficulties Nutrition Etiology: Physiological Causes Nutrition Problem/Etiology/Sym: AEB Oral/Pharyngeal dysphagia identified by SPL Energy Requirement: 1730 (M- St- J) Protein Requirement: 60 (1GM/KG) Fluid Requirement: 1500 (25ML/KG) Diet Type: Dysphagia Stage 2 Nutrition Intervention: Cont diet as ordered, Encourage intake, Between meal supplement Additional Diet Restrictions: PROVIDE NUTR SUPPLMENT WITH EACH MEAL Diet Comment To RSA: PUT PROTEIN PRODUCTS IN APPROPRIATE FOODS Nutrition Monitoring & Eval Nutrition Goals: Eat 75-100% Meal Nutrition Follow-Up: Fair Intake RD Patient Assessment Time: [address] Assessment Type: RD Re-Assessment Patient Nutrition Acuity: 2-Moderate Follow Up Date: Jan 16, 2018 Nutritional Comment: 01/03 Pt admitted with pneumonia. Pt had SPL eval which indicated oral and pharyngeal dysphagia. Pt on Dysphagia 2 diet. BUN 36, creatinine 1.2, BG elvated up to 150. Alb 1.9. Will offer nutr supplment to increase kcal and protein intake. BK 01/08 Diet changed to dysphagia 1. Intake average 22% with only 1 nutr supplment reported. Alb declined to 1.7. Will f/u to ensure a nutr supplment is provided at each meal. No new wt. Will cont to monitor. JE 01/11 Diet changed to Dysphagia 2 following barrium swallow. Intake improved to 50-75% small portions. Will cont to offer nutr supplment to increase kcal and protein intake. Alb cont 1.7. Cont to monititor and encourage intake. CARLOS ENRIQUE CABRERA Jan 11, 2018 14:29
[2018-01-11 14:48] VITALS: BP 89/61
[2018-01-11] MEDS: ALLOPURINOL 300 MG TAB PO SCH (17:18)
[2018-01-12] MEDS: LEVOTHYROXINE SOD 0.125 MG TAB PO SCH (05:59)
[2018-01-12] MEDS: levETIRAcetam 500 MG TAB PO SCH (09:32)
[2018-01-12] MEDS: TAMSULOSIN HCL 0.4 MG CAP PO SCH (09:32)
[2018-01-12] MEDS: ENOXAPARIN 40 MG/0.4ML SYR SC SCH (09:32)
[2018-01-12] MEDS: DULoxetine HCL 30 MG CAPCR PO SCH (09:32)
[2018-01-12] MEDS: PANTOPRAZOLE SOD 40 MG TABEC PO SCH (09:32)
--- NOTE | 2018-01-12 10:39 | Hospitalist Depart ---
Discharge Summary Reason for Hosp/Final Diag: (1) Bacterial pneumonia Hospital Course & Plan: He did present with altered mental status and increased oxygen requirements. His chest x-ray did show a lingular infiltrate and his WBC was elevated. He was started on empiric treatment with IV ceftriaxone and azithromycin. Blood cultures are negative. He was switched to Zosyn on the after a recurrent aspiration event and worsening x-ray findings. He has not had any recurrent fever and his WBC is normal. We have stopped all antibiotics 01/10. (2) Fracture of distal fibula Status: Acute Hospital Course & Plan: He has been in a boot for the last 8 weeks. X-rays show healing/healed fracture. Apparently, therapy was canceled at the [facility] because he wasn't participating in the care. He will be transferred back to [facility]. (3) Low blood pressure Status: Chronic Hospital Course & Plan: Likely this is partly a chronic issue. He had a SBP of 80's-100's in October when he was admitted for seizures, AMS and distal fibular fracture. Creatinine and lactate are in normal range. (4) Hypernatremia Status: Resolved Hospital Course & Plan: Due to dehydration. He was on 1/2NS IV fluids. He corrected at an appropriate rate. (5) Altered mental status Status: Acute Hospital Course & Plan: Secondary to pneumonia/underlying Down's Syndrome/Dementia. CT scan of the head showed atrophy, but no acute changes. Minimally verbal at baseline. Returning to [facility] facility may be difficult due to dementia more than anything else. Departure Latest Vital Signs Vital Signs 01/11/18 01/11/18 01/12/18 14:48 19:47 03:29 Temp 98.4 Pulse 82 Resp 16 B/P (MAP) 89/61 (70) Pulse Ox 82 O2 Delivery Nasal Cannula O2 Flow Rate 2.0 Weight (Pounds): 130 Weight (Ounces): 3.0 Result Diagram: 01/10/18 0908 01/09/18 0515 Condition: Improved Discharge: Skilled Nursing PT/OT Follow Up For: PT For Strengthening, OT For ADL's, PT Evaluation and Treat, ST Evaluation and Treat, OT Evaluation and Treat Discharge Instructions Home Meds Active Scripts Levetiracetam (LEVETIRACETAM) 500 Mg Tablet, 500 MG PO BID, #60 TAB Prov:KASEY CALVERT [employer] 11/02/17 Reported Medications Omeprazole (OMEPRAZOLE) 20 Mg Capsule.dr, 1 CAP PO QDAY, CAP 01/03/18 Triamcinolone Acetonide 0.1% Oint 15 Gm Tube (TRIAMCINOLONE ACETONIDE 0.1% 15 GM TUBE) 15 Gm Oint...g., 1 APPLIC TP PRN, TUBE 10/28/17 Guaifenesin (ROBAFEN) 100 Mg/5 Ml Liquid, 5-10 ML PO PRN PRN for COUGH 10/28/17 Hydrocortisone (CORTIZONE 10) 28 Gm Gel..gram., 1 APPLIC TP PRN 10/28/17 Bacitracin Zinc (Bacitracin Zinc) 1 Each Oint..ea., 1 APPLIC TP PRN 10/28/17 Loperamide HCl (Imodium A-D) 2 Mg Capsule, 2 TAB PO PRN PRN for DIARRHEA 2 tabs after 2 watery stools 10/28/17 Calcium Carbonate/Mag Hydrox (ANTACID CHEWABLE TABLET) 1 Each Tab.chew, 2 TAB PO PRN, TAB.CHEW 10/28/17 Acetaminophen 500 Mg Tab (ACETAMINOPHEN EXTRA STRENGTH) 500 Mg Tablet, 2 TAB PO Q4-6H PRN for PAIN, TAB 10/28/17 [place] Tar (T-Gel) 0.5 % Shampoo, 1 FREDDY TP 3XW 10/28/17 Eyelid Cleanser Combination #5 (OCUSOFT LID SCRUB) 1 Each Med..pad, 1 EACH TP BID 10/28/17 Metronidazole (METRONIDAZOLE) 45 Gm Cream..g., 1 APPLIC TP HS 0.75% cream 10/28/17 Levothyroxine Sodium (LEVOTHYROXINE SODIUM) 75 Mcg Tablet, 75 MCG PO QODAY, TAB 10/28/17 Emollient Combination No.97 (Aquaphilic) 454 Gm Oint...g., 1 APPLIC TP BID 10/28/17 Calcium Polycarbophil (FIBER-LAX) 625 Mg Tablet, 1 TAB PO BID 10/28/17 Melatonin (MELATONIN) 3 Mg Tablet, 3 MG PO QHS 10/28/17 Duloxetine HCl (Duloxetine HCl) 30 Mg Capsule.dr, 1 CAP PO DAILY 10/28/17 Alendronate Sodium (FOSAMAX) 70 Mg Tablet, 70 MG PO QWK, TAB 10/28/17 Folic Acid (FOLIC ACID) 1 Mg Tablet, 1 MG PO QDAY, TAB 02/10/17 Cholecalciferol (Vitamin D3) (VITAMIN D3) 1,000 Unit Tablet, 1000 UNIT PO QPM, TAB 02/10/17 Cyanocobalamin (Vitamin B-12) (VITAMIN B-12) 1,000 Mcg Tablet, 1000 MCG PO 2XW 02/10/17 Tamsulosin Hcl (Flomax) 0.4 Mg Cap, 0.4 MG PO BID, #60 0 Refills 05/26/11 Docosahexanoic Acid/Epa (Fish Oil 1,000 Mg Capsule) 1 Cap Capsule, 1 CAP PO BID, 0 Refills 05/24/11 Lorazepam (Ativan) 0.5 Mg Tab, 0.5 MG PO Q8H PRN, 0 Refills 04/12/11 Multivitamins W-Minerals (Multiple Vitamin) 1 Tab Tablet, 1 TAB PO DAILY, 0 Refills 04/12/11 Allopurinol (Zyloprim) 300 Mg Tab, 300 MG PO QPM, 0 Refills 04/12/11 Calcium Carbonate/Vitamin D3 (Calcium + D Tablet) 1 Udtab Tablet, 1 TAB PO TID, 0 Refills Calcium 600mg/Vit D 400mg 04/12/11 Esomeprazole Mag Trihydrate (Nexium) 40 Mg Capsule.dr, 40 MG PO QDAY, 0 Refills 04/12/11 Levothyroxine Sodium (Synthroid) 50 Mcg Tablet, 50 MCG PO QODAY, 0 Refills 04/12/11 Discontinued Scripts Hydrocodone Bit/Acetaminophen (HYDROCODON-ACETAMINOPHEN 5-325) 1 Each Tablet, 1 EACH PO Q6H PRN for PAIN, #28 TAB Prov:KASEY CALVERT 11/02/17 Diet: Regular Activity: As Tolerated Venous Thromboembolism Antithrombotics Is Pt On Any Antithrombotics?: No KASEY CALVERT Jan 12, 2018 10:39
[2018-01-12 12:22] VITALS: BP 112/64
== END 2018-01-12 12:08 | DRG 194 ==
LOC: ER 13:03 → MED 14:58
PROVIDERS: ADMIT Family Medicine; ATTEND Family Medicine
DX: J15.9 Unspecified bacterial pneumonia (principal); E87.0 Hyperosmolality and hypernatremia; Q21.1 Atrial septal defect; S82.832D Other fracture of upper and lower end of left fibula, subsequent encounter for closed fracture with routine healing; J69.0 Pneumonitis due to inhalation of food and vomit; Q90.9 Down syndrome, unspecified; F03.90 Unspecified dementia, unspecified severity, without behavioral disturbance, psychotic disturbance, mood disturbance, and anxiety; R13.10 Dysphagia, unspecified; K21.9 Gastro-esophageal reflux disease without esophagitis; N40.0 Benign prostatic hyperplasia without lower urinary tract symptoms; M1A.9XX0 Chronic gout, unspecified, without tophus (tophi); F32.9 Major depressive disorder, single episode, unspecified; E03.9 Hypothyroidism, unspecified; M41.9 Scoliosis, unspecified; N20.0 Calculus of kidney; I27.20 Pulmonary hypertension, unspecified; Z23 Encounter for immunization; L89.159 Pressure ulcer of sacral region, unspecified stage; I95.9 Hypotension, unspecified; Z88.8 Allergy status to other drugs, medicaments and biological substances; Z90.49 Acquired absence of other specified parts of digestive tract; Z98.1 Arthrodesis status; Z95.0 Presence of cardiac pacemaker
CPT/HCPCS: 36415; 70450; 71045; 74230; 81001; 82040; 82247; 82310; 82374; 82435; 82565; 82947; 83605; 84075; 84132; 84155; 84295; 84450; 84460; 84484; 84520; 85025; 85379; 87040; 87088; 90471; 90674; 93005; 94640; 96365; 97161; 97166; 99285; J0131; J0456; J0696; J1650; J2543; J3480; J7030; J7040; J7050; Q9967

== ENCOUNTER → 2018-01-02 | Outpatient (CLI) | payer MEDICARE, MEDICAID ==
[~2018-01-02] MED LIST changes: +ACET-2146 PO; +ALEN70TA43 PO; +BACI1OIN6 TP; +CALC1TAB24 PO; +CALC625T65 PO; +COAL130S5 TP; +DULO30CA6 PO; +EMOL454O TP; +EYEL1MED TP; +GUAI-244 PO; +HYDR28GE3 TP; +LEVE500T73 PO; +LEVO75TA73 PO; +LOPE2CAP15 PO; +LOR5/325 PO; +LOSA25TA52 PO; +MELA3TAB31 PO; +OMEP-125 PO; +TRIA15OI20 TP
== END ==
LOC: AMB 11:50
PROVIDERS: ATTEND Nurse Practitioner
DX: R53.1 Weakness (principal); I95.9 Hypotension, unspecified; R06.00 Dyspnea, unspecified; R53.83 Other fatigue; R09.02 Hypoxemia
CPT/HCPCS: A0425; A0427

== ENCOUNTER → 2018-01-02 | Outpatient (REF) | payer MEDICARE, MEDICAID | LOC: ZZLCC 13:23 | PROVIDERS: ATTEND Family Medicine | DX: R68.89 Other general symptoms and signs (principal) ==

== ENCOUNTER → 2018-01-12 | Outpatient (CLI) | payer MEDICARE, MEDICAID ==
[~2018-01-12] MED LIST changes: +OMEP-125 PO
== END ==
LOC: AMB 11:57
PROVIDERS: ATTEND Nurse Practitioner
DX: R53.1 Weakness (principal); Q90.9 Down syndrome, unspecified
CPT/HCPCS: A0425; A0428

== ENCOUNTER 2018-01-18 10:02 | Emergency (ER) | payer MEDICARE, MEDICAID ==
[2018-01-18] MEDS ORDERED: NS(*) 0.9% 1000 ML BAG 1,000 ML IV ONE ×2 (10:14→13:20)
[2018-01-18] MEDS ORDERED: DIPHTH/TETANUS/ACEL. PERTUSSIS IM ONE (10:15)
[2018-01-18] MEDS ORDERED: IOPAMIDOL 76% 75 ML INFUS BTL 75 ML ONE (10:59)
[2018-01-18 11:11] LABS: PLATELET COUNT, AUTOMATED 285 K/uL (150-450)
[2018-01-18 11:20] LABS: INR 1.15
--- NOTE | 2018-01-18 11:36 | ER Report ---
History and Physical Time Seen By MD: 11:35 Hx. of Stated Complaint: unwitnessed fall from w/c, unknown LOC, unknown time. Head abrasion noted. HPI/ROS CHIEF COMPLAINT: Fall, hypoxia, altered mental status, hypotension HISTORY OF PRESENT ILLNESS: Patient is a 58-year-old male here with complaints of altered mental status, fall out of the wheelchair with an abrasion on the forehead, found to be hypoxic at the fdc. Patient has a recent history of pneumonia which was treated in the patient setting, patient was discharged home to the fdc at the [facility]. Fall was unwitnessed, reported oxygen saturations were in the 50s. Patient does not require supplemental oxygen at baseline however has needed 4 L nasal cannula since time of arrival to maintain oxygen levels greater than 90%. Patient has a baseline diagnosis of Down syndrome and mental retardation. Vaishali Jones ([phone]) is the patient's guardian who was updated prior to the patient being transferred. Patient was unable to verbalize focal complaints of pain however he did grimace at times on physical exam sometimes on palpation of the abdomen. REVIEW OF SYSTEMS: Unable to obtain due to patient's mental status Allergies: Uncoded Allergies: AVOID NSAIDS (Adverse Reaction, Unknown, 11/23/11) Home Meds Active Scripts Levetiracetam (LEVETIRACETAM) 500 Mg Tablet, 500 MG PO BID, #60 TAB Prov:CALVERTKASEY NETWORK SUPPORT ENGINEER 11/02/17 Reported Medications Omeprazole (OMEPRAZOLE) 20 Mg Capsule.dr, 1 CAP PO QDAY, CAP 01/03/18 Triamcinolone Acetonide 0.1% Oint 15 Gm Tube (TRIAMCINOLONE ACETONIDE 0.1% 15 GM TUBE) 15 Gm Oint...g., 1 APPLIC TP PRN, TUBE 10/28/17 Guaifenesin (ROBAFEN) 100 Mg/5 Ml Liquid, 5-10 ML PO PRN PRN for COUGH 10/28/17 Hydrocortisone (CORTIZONE 10) 28 Gm Gel..gram., 1 APPLIC TP PRN 10/28/17 Bacitracin Zinc (Bacitracin Zinc) 1 Each Oint..ea., 1 APPLIC TP PRN 10/28/17 Loperamide HCl (Imodium A-D) 2 Mg Capsule, 2 TAB PO PRN PRN for DIARRHEA 2 tabs after 2 watery stools 10/28/17 Calcium Carbonate/Mag Hydrox (ANTACID CHEWABLE TABLET) 1 Each Tab.chew, 2 TAB PO PRN, TAB.CHEW 10/28/17 Acetaminophen 500 Mg Tab (ACETAMINOPHEN EXTRA STRENGTH) 500 Mg Tablet, 2 TAB PO Q4-6H PRN for PAIN, TAB 10/28/17 [place]ax Tar (T-Gel) 0.5 % Shampoo, 1 FREDDY TP 3XW 10/28/17 Eyelid Cleanser Combination #5 (OCUSOFT LID SCRUB) 1 Each Med..pad, 1 EACH TP BID 10/28/17 Metronidazole (METRONIDAZOLE) 45 Gm Cream..g., 1 APPLIC TP HS 0.75% cream 10/28/17 Levothyroxine Sodium (LEVOTHYROXINE SODIUM) 75 Mcg Tablet, 75 MCG PO QODAY, TAB 10/28/17 Emollient Combination No.97 (Aquaphilic) 454 Gm Oint...g., 1 APPLIC TP BID 10/28/17 Calcium Polycarbophil (FIBER-LAX) 625 Mg Tablet, 1 TAB PO BID 10/28/17 Melatonin (MELATONIN) 3 Mg Tablet, 3 MG PO QHS 10/28/17 Duloxetine HCl (Duloxetine HCl) 30 Mg Capsule.dr, 1 CAP PO DAILY 10/28/17 Alendronate Sodium (FOSAMAX) 70 Mg Tablet, 70 MG PO QWK, TAB 10/28/17 Folic Acid (FOLIC ACID) 1 Mg Tablet, 1 MG PO QDAY, TAB 02/10/17 Cholecalciferol (Vitamin D3) (VITAMIN D3) 1,000 Unit Tablet, 1000 UNIT PO QPM, TAB 02/10/17 Cyanocobalamin (Vitamin B-12) (VITAMIN B-12) 1,000 Mcg Tablet, 1000 MCG PO 2XW 02/10/17 Tamsulosin Hcl (Flomax) 0.4 Mg Cap, 0.4 MG PO BID, #60 0 Refills 05/26/11 Docosahexanoic Acid/Epa (Fish Oil 1,000 Mg Capsule) 1 Cap Capsule, 1 CAP PO BID, 0 Refills 05/24/11 Lorazepam (Ativan) 0.5 Mg Tab, 0.5 MG PO Q8H PRN, 0 Refills 04/12/11 Multivitamins W-Minerals (Multiple Vitamin) 1 Tab Tablet, 1 TAB PO DAILY, 0 Refills 04/12/11 Allopurinol (Zyloprim) 300 Mg Tab, 300 MG PO QPM, 0 Refills 04/12/11 Calcium Carbonate/Vitamin D3 (Calcium + D Tablet) 1 Udtab Tablet, 1 TAB PO TID, 0 Refills Calcium 600mg/Vit D 400mg 04/12/11 Esomeprazole Mag Trihydrate (Nexium) 40 Mg Capsule.dr, 40 MG PO QDAY, 0 Refills 04/12/11 Levothyroxine Sodium (Synthroid) 50 Mcg Tablet, 50 MCG PO QODAY, 0 Refills 04/12/11 Discontinued Scripts Hydrocodone Bit/Acetaminophen (HYDROCODON-ACETAMINOPHEN 5-325) 1 Each Tablet, 1 EACH PO Q6H PRN for PAIN, #28 TAB Prov:KASEY CALVERT Deirdre NETWORK SUPPORT ENGINEER 11/02/17 Past Medical/Surgical History Recent admission for bacterial pneumonia, hypothyroidism, GERD, dementia, Down syndrome, hypotension, pacer/defib in place Hx Smoking: No Exposure to Second Hand Smoke?: No Hx Substance Use Disorder: No Hx Alcohol Use: No Constitutional Vital Sign - Last 24 Hours 01/18/18 01/18/18 01/18/18 01/18/18 10:05 10:06 10:17 10:30 Temp 97.6 Pulse 89 92 Resp 16 22 B/P (MAP) 103/59 103/59 (74) 90/51 (64) Pulse Ox 95 O2 Delivery Room Air 01/18/18 01/18/18 01/18/18 01/18/18 10:32 10:47 11:00 11:02 Pulse 80 89 70 Resp 14 19 17 B/P (MAP) 86/58 (67) Pulse Ox 97 01/18/18 01/18/18 01/18/18 01/18/18 11:15 11:17 11:19 11:30 Pulse 69 Resp 14 B/P (MAP) 83/55 (64) 89/53 (65) 89/72 (78) Pulse Ox 99 01/18/18 01/18/18 01/18/18 01/18/18 11:32 11:45 11:47 11:52 Pulse 79 ??? Resp 10 B/P (MAP) 96/61 (73) Pulse Ox 94 99 O2 Delivery Room Air Room Air 01/18/18 01/18/18 01/18/18 01/18/18 12:00 12:07 12:08 12:09 Pulse ??? Resp 12 B/P (MAP) ???/??? (1665) 78/45 (56) 73/41 (52) 01/18/18 01/18/18 01/18/18 01/18/18 12:11 12:12 12:15 12:15 B/P (MAP) 75/40 (52) 87/42 (57) 76/38 (51) O2 Flow Rate 4.0 01/18/18 01/18/18 01/18/18 01/18/18 12:22 12:30 12:37 12:45 Pulse 79 78 Resp 16 14 B/P (MAP) 79/38 (52) 84/45 (58) Pulse Ox 98 98 Physical Exam General Appearance: The patient is alert, has no immediate need for airway protection and no signs of toxicity. Altered mental status, mental retardation/dementia history Eyes: Pupils equal and round no pallor or injection. ENT, Mouth: Mucous membranes are moist. Respiratory: Crackles at bases, diminished at bases Cardiovascular: Regular rate and rhythm. Gastrointestinal: Abdomen is soft and non tender, no masses, bowel sounds normal. Neurological: Nonverbal, confused, moving all extremities, somnolent Skin: Warm and dry, no rashes. Musculoskeletal: Neck is supple non tender. Extremities are nontender, nonswollen and have full range of motion. DIFFERENTIAL DIAGNOSIS: After history and physical exam differential diagnosis was considered for pneumonia, aspiration, and STEMI, myocardial infarction, intracranial bleed, fracture, C-spine injury, electrolyte abnormality, dehydrat ion, sepsis, occult sepsis, concussion Medical Decision Making Data Points Result Diagram: 01/18/18 1001 01/18/18 1001 Laboratory Hematology Test 01/18/18 10:01 01/18/18 10:52 01/18/18 13:30 Red Blood Count 3.73 M/uL (4.00-5.60) Mean Corpuscular Volume 95.1 fL (80.0-96.0) Mean Corpuscular Hemoglobin 30.1 pg (26.0-33.0) Mean Corpuscular Hemoglobin Concent 31.6 g/dL (32.0-36.0) Red Cell Distribution Width 19.0 % (11.5-14.5) Mean Platelet Volume 9.1 fL (7.2-11.1) Neutrophils (%) (Auto) 41.6 % (39.4-72.5) Lymphocytes (%) (Auto) 46.0 % (17.6-49.6) Monocytes (%) (Auto) 9.9 % (4.1-12.4) Eosinophils (%) (Auto) 1.1 % (0.4-6.7) Basophils (%) (Auto) 1.4 % (0.3-1.4) Nucleated RBC Relative Count (auto) 0.0 /100WBC Neutrophils # (Auto) 2.2 K/uL (2.0-7.4) Lymphocytes # (Auto) 2.5 K/uL (1.3-3.6) Monocytes # (Auto) 0.5 K/uL (0.3-1.0) Eosinophils # (Auto) 0.1 K/uL (0.0-0.5) Basophils # (Auto) 0.1 K/uL (0.0-0.1) Nucleated RBC Absolute Count (auto) 0.00 K/uL Prothrombin Time 14.8 seconds (12.0-14.4) Prothromb Time International Ratio 1.15 Activated Partial Thromboplast Time 28 seconds (23-35) Sodium Level 142 mmol/L (137-145) Potassium Level 4.1 mmol/L (3.5-5.0) Chloride Level 105 mmol/L (98-107) Carbon Dioxide Level 28 mmol/L (22-30) Blood Urea Nitrogen 17 mg/dl (9-21) Creatinine 1.10 mg/dl (0.66-1.25) Glomerular Filtration Rate Calc > 60.0 Random Glucose 98 mg/dl (75-110) Calcium Level 10.3 mg/dl (8.4-10.2) Total Bilirubin 0.2 mg/dl (0.2-1.3) Aspartate Amino Transf (AST/SGOT) 22 U/L (0-35) Alanine Aminotransferase (ALT/SGPT) 24 U/L (0-56) Alkaline Phosphatase 96 U/L (0-126) Troponin I 0.292 ng/ml Total Protein 6.1 g/dl (6.3-8.2) Albumin 2.4 g/dl (3.5-5.0) Lipase 76 U/L (23-300) Serum Alcohol < 10 mg/dl Urine Color Yellow Urine Clarity Clear Urine pH 7.0 pH (4.8-9.5) Urine Specific [place] 1.009 Urine Protein Negative mg/dL (NEGATIVE) Urine Glucose (UA) Negative mg/dL (NEGATIVE) Urine Ketones Negative mg/dL (NEGATIVE) Urine Blood Negative (NEGATIVE) Urine Nitrite Negative (NEGATIVE) Urine Bilirubin Negative (NEGATIVE) Urine Urobilinogen Negative mg/dL (0.2-1.9) Urine Leukocyte Esterase Negative (NEGATIVE) Urine RBC None /HPF (0-2/HPF) Urine WBC 3 /HPF (0-5/HPF) Urine Squamous Epithelial Cells Few /LPF (NONE-FEW) Urine Bacteria Negative /HPF (NONE-FEW) Urine Mucus None /HPF (NONE-FEW) Chemistry Test 01/18/18 10:01 01/18/18 10:52 01/18/18 13:30 White Blood Count 5.4 k/uL (4.5-11.0) Red Blood Count 3.73 M/uL (4.00-5.60) Hemoglobin 11.2 g/dL (14.0-18.0) Hematocrit 35.5 % (42.0-52.0) Mean Corpuscular Volume 95.1 fL (80.0-96.0) Mean Corpuscular Hemoglobin 30.1 pg (26.0-33.0) Mean Corpuscular Hemoglobin Concent 31.6 g/dL (32.0-36.0) Red Cell Distribution Width 19.0 % (11.5-14.5) Platelet Count 285 K/uL (150-450) Mean Platelet Volume 9.1 fL (7.2-11.1) Neutrophils (%) (Auto) 41.6 % (39.4-72.5) Lymphocytes (%) (Auto) 46.0 % (17.6-49.6) Monocytes (%) (Auto) 9.9 % (4.1-12.4) Eosinophils (%) (Auto) 1.1 % (0.4-6.7) Basophils (%) (Auto) 1.4 % (0.3-1.4) Nucleated RBC Relative Count (auto) 0.0 /100WBC Neutrophils # (Auto) 2.2 K/uL (2.0-7.4) Lymphocytes # (Auto) 2.5 K/uL (1.3-3.6) Monocytes # (Auto) 0.5 K/uL (0.3-1.0) Eosinophils # (Auto) 0.1 K/uL (0.0-0.5) Basophils # (Auto) 0.1 K/uL (0.0-0.1) Nucleated RBC Absolute Count (auto) 0.00 K/uL Prothrombin Time 14.8 seconds (12.0-14.4) Prothromb Time International Ratio 1.15 Activated Partial Thromboplast Time 28 seconds (23-35) Glomerular Filtration Rate Calc > 60.0 Calcium Level 10.3 mg/dl (8.4-10.2) Total Bilirubin 0.2 mg/dl (0.2-1.3) Aspartate Amino Transf (AST/SGOT) 22 U/L (0-35) Alanine Aminotransferase (ALT/SGPT) 24 U/L (0-56) Alkaline Phosphatase 96 U/L (0-126) Troponin I 0.292 ng/ml Total Protein 6.1 g/dl (6.3-8.2) Albumin 2.4 g/dl (3.5-5.0) Lipase 76 U/L (23-300) Serum Alcohol < 10 mg/dl Urine Color Yellow Urine Clarity Clear Urine pH 7.0 pH (4.8-9.5) Urine Specific [place] 1.009 Urine Protein Negative mg/dL (NEGATIVE) Urine Glucose (UA) Negative mg/dL (NEGATIVE) Urine Ketones Negative mg/dL (NEGATIVE) Urine Blood Negative (NEGATIVE) Urine Nitrite Negative (NEGATIVE) Urine Bilirubin Negative (NEGATIVE) Urine Urobilinogen Negative mg/dL (0.2-1.9) Urine Leukocyte Esterase Negative (NEGATIVE) Urine RBC None /HPF (0-2/HPF) Urine WBC 3 /HPF (0-5/HPF) Urine Squamous Epithelial Cells Few /LPF (NONE-FEW) Urine Bacteria Negative /HPF (NONE-FEW) Urine Mucus None /HPF (NONE-FEW) Coagulation Test 01/18/18 10:01 Prothrombin Time 14.8 seconds Prothromb Time International Ratio 1.15 Activated Partial Thromboplast Time 28 seconds Toxicology Test 01/18/18 10:01 Serum Alcohol < 10 mg/dl Urinalysis Test 01/18/18 10:52 Urine Color Yellow Urine Clarity Clear Urine pH 7.0 pH (4.8-9.5) Urine Specific [place] 1.009 Urine Protein Negative mg/dL (NEGATIVE) Urine Glucose (UA) Negative mg/dL (NEGATIVE) Urine Ketones Negative mg/dL (NEGATIVE) Urine Blood Negative (NEGATIVE) Urine Nitrite Negative (NEGATIVE) Urine Bilirubin Negative (NEGATIVE) Urine Urobilinogen Negative mg/dL (0.2-1.9) Urine Leukocyte Esterase Negative (NEGATIVE) Urine RBC None /HPF (0-2/HPF) Urine WBC 3 /HPF (0-5/HPF) Urine Squamous Epithelial Cells Few /LPF (NONE-FEW) Urine Bacteria Negative /HPF (NONE-FEW) Urine Mucus None /HPF (NONE-FEW) EKG/Imaging EKG Interpretation 12 lead EKG: Normal sinus rhythm, left axis deviation, ventricular rate 79, QTc interval 463 Rhythm: normal sinus rhythm [place]: Left axis deviation QRS: normal ST segments: normal Monitor Interpretation: Normal Sinus Rhythm Imaging EXAMINATION: CT Cervical spine without intravenous contrast HISTORY: Trauma COMPARISON: October 28, 2017 TECHNIQUE: Axial images were obtained from the skull base through the upper thoracic spine without IV contrast administration. Coronal and sagittal reformatted images were generated from the axial source data. One of the following dose optimization techniques was utilized in the performance of this exam: automated exposure control; adjustment of the mA and/or kV according to patient size; or use of iterative reconstruction technique. Specific details can be referenced in the facility's radiology CT exam operational policy. FINDINGS: Vertebral bodies and posterior elements: Unchanged basilar invagination. No frac ture identified. Corpectomy postsurgical change with bone graft prosthesis at the C4, C5 and C6 levels as before. Normal vertebral body heights. Alignment: Unchanged retrolisthesis of C2 on C3. Disc Spaces: Severe unchanged C2-3 and C6-7 disc space degeneration. Fused C3-4, C4-5, C5-6 disc spaces. Severe degeneration of the right C1 and C2 lateral mass articulation. Multilevel degenerative foraminal narrowing. Hardware: Unchanged anterior plate and screws extend from C3 through C6. The iliana dware is intact. Soft tissues: Normal prevertebral soft tissues. Visualized upper chest: Normal. IMPRESSION: No acute fracture or acute abnormality. Unchanged chronic findings as described above. Location: [facility] Patient: Zechariah Worley : 1960 Visit/Account:[id number] Date of Sevice: 01/18/2018 EXAMINATION: CT chest with IV contrast CT abdomen with IV contrast CT pelvis with IV contrast HISTORY: Fall. TECHNIQUE: Spiral scan was obtained through the chest, abdomen and pelvis during injection of nonionic iodinated intravenous contrast. Sagittal and coronal reformatted images are also submitted. One of the following dose optimization techniques was utilized in the performance of this exam: Automated exposure control; adjustment of the mA and/or kV according to the patient's size; or use of an iterative reconstruction technique. Specific details can be referenced in the facility's radiology CT exam operational policy. CONTRAST: 75 mL of IV [id number]. COMPARISON: 10/28/2017. FINDINGS: CT THORAX: Lungs / pleura: There is a new small right pleural effusion. There is patchy interstitial and alveolar infiltrates in both lower lobes with mild consolidation in the right lower lobe. No other consolidation. No pneumothorax or left pleural effusion. No discrete nodule. Airways are clear. Mediastinum / jaquan: No enlarged lymph nodes or abnormal density. Heart / pericardium: Heart is normal size. Small pericardial fluid is again present. Pacing wires are in place. Vessels: Aorta shows no aneurysm or dissection. The pulmonary arteries are grossly normal. Musculoskeletal / Body wall: Bony structures show no acute fractures. Old 7 through 10 right rib fractures. Stable compression the T12 vertebral body without retropulsion. No aggressive bony lesions. Chest wall shows no enlarged axillary lymph nodes or masses. CT ABDOMEN AND PELVIS: Liver / biliary: The liver shows no focal abnormality. Status post cholecystectomy. The biliary system is unremarkable. Pancreas: Mild fatty replacement without focal abnormality. Spleen: No focal abnormality. Adrenal glands: Negative. Kidneys: Stable multiple small nonobstructing renal calculi. Largest 4 mm. No discrete renal lesions. Pelvic structures: Negative. Bowel: Residual contrast and stool seen throughout colon with prominent stool in the rectosigmoid colon. Colon shows no focal abnormality. The appendix is not visualized. Small bowel shows no focal abnormality or obstruction. The stomach is mainly decompressed and grossly normal. Peritoneum / retroperitoneum / mesenteries: No free air, free fluid, fluid co llections or areas of inflammation. There is a small right-sided periumbilical hernia containing fat. There is a moderate-sized supraumbilical ventral hernia containing fat. These are stable. Vessels: Negative. Musculoskeletal / Body wall: Degenerative changes and scoliotic changes to the spine. No acute fractures or aggressive bony lesions. Lymph node assessment: Negative. IMPRESSION: 1. No indication of traumatic injury to the chest, abdomen or pelvis. 2. There is a new small right pleural effusion. Both lower lobes do show interstitial and alveolar infiltrates with small area of consolidation the right lower lobe. This could be secondary to pneumonia or even aspiration. 3. Small amount of pericardial fluid which is stable. 4. Stool seen throughout the colon with prominent on the rectosigmoid colon. No focal abnormality or obstruction. 5. Stable nonobstructing bilateral renal calculi. 6. Other stable chronic findings as above. Location: [facility] Patient: Zechariah Worley : 1960 Visit/Account:[id number] Date of Sevice: 01/18/[address] scan without contrast HISTORY: Trauma COMPARISONS: January 02, 2018 TECHNIQUE: Non-contrast head CT was performed with sagittal and coronal reformations. One of the following dose optimization techniques was utilized in the performance of this exam: automated exposure control; adjustment of the mA and/or kV according to patient size; or use of iterative reconstruction technique. Specific details can be referenced in the facility's radiology CT exam operational policy. FINDINGS: There is no intracranial hemorrhage, hydrocephalus or midline shift. The basal cisterns, smith-white differentiation, and convexity sulci are maintained. Normal orbital soft tissues. Unchanged parenchymal atrophy. Unchanged right frontal and parietal lobe encephalomalacia. The mastoid air cells are clear. The paranasal sinuses are clear. The osseous structures are normal. IMPRESSION: No acute intracranial abnormality. Unchanged right frontal and right parietal lobe encephalomalacia. ED Course/Re-evaluation Clinical Indication for ER IV: Hydration, Hypotention, IV Access ED Course Patient is a 58-year-old male here with complaints of altered mental status, fall out of the wheelchair with an abrasion on the forehead, found to be hypoxic at the fdc. Patient has a recent history of pneumonia which was treated in the patient setting, patient was discharged home to the fdc at the [facility]. Fall was unwitnessed, reported oxygen saturations were in the 50s. Patient does not require supplemental oxygen at baseline however has needed 4 L nasal cannula since time of arrival to maintain oxygen levels greater than 90%. Patient has a baseline diagnosis of Down syndrome and mental retardation. Vaishali Jones ([phone]) is the patient's guardian who was updated prior to the patient being transferred. Patient was unable to verbalize focal complaints of pain however he did grimace at times on physical exam sometimes on palpation of the abdomen. Of note, the patient has a history of hypothyroidism, gout, GERD, hypertension reportedly with a systolic ranging from 80-100 mmHg on last admission. CT imaging of the head, C-spine, chest abdomen pelvis were significant for pleural effusions, new consolidation in the right lower lung unclear whether or not this was caused by aspiration or bacterial etiologies. Patient was covered with cefepime and vancomycin for empiric coverage and due to recent admission for pneumonia. Patient does live at the [facility] and records were reviewed from that facility. Patient reportedly had an unwitnessed fall this morning and was found to be hypoxic in the 40s, not responding to staff. Patient is also noted to have an NSTEMI (0.29 Trop I) with no ischemic changes on EKG compared to prior. Patient was started on a heparin infusion after bolus. He was given a total of 2500 mL of normal saline solution for rehydration. Patient initially was noted to have a lactate of 3 which improved to 1.9 after fluid resuscitation. Patient did not of the leukocytosis and he was afebrile throughout course. He was noted to have systolic blood pressure in the 70s ranging into the 80s which did not significantly respond to fluid resuscitation. Patient does not have a history significant for cardiac disease. I discussed the patient with who is the hospitalist on-call at [facility] who accepted the patient to his service. Decision to Disposition Date: Jan 18, 2018 Decision to Disposition Time: 14:16 Depart Departure Latest Vital Signs Vital Signs Date Time Temp Pulse Resp B/P (MAP) Pulse Ox O2 Delivery O2 Flow Rate FiO2 01/18/18 12:45 84/45 (58) 01/18/18 12:37 78 14 98 01/18/18 12:15 4.0 01/18/18 11:47 Room Air 01/18/18 10:05 97.6 Impression: Primary Impression: Head trauma Additional Impressions: Altered mental status NSTEMI (non-ST elevated myocardial infarction) Hypotension Pneumonia Condition: Improved Disposition: XFER TO ACUTE CARE HOSPITAL (patient was transferred to the [facility]) Problem Qualifiers DAYNE BRENNAN DO Jan 18, 2018 11:36
[2018-01-18] MEDS ORDERED: NS(*) 0.9% 500 ML BAG 500 ML IV ONE (12:40)
--- NOTE | 2018-01-18 12:42 | RADIOLOGY IMAGING REPORT ---
FACILITY: [facility] PATIENT NAME: Zechariah Worley : 1960 MR: [id number] V: [id number] EXAM DATE: ORDERING PHYSICIAN: DAYNE BRENNAN TECHNOLOGIST: Location: [facility] Patient: Zechariah Worley : 1960 Visit/Account:[id number] Date of Sevice: 01/18/[address] scan without contrast HISTORY: Trauma COMPARISONS: January 02, 2018 TECHNIQUE: Non-contrast head CT was performed with sagittal and coronal reformations. One of the following dose optimization techniques was utilized in the performance of this exam: autom ated exposure control; adjustment of the mA and/or kV according to patient size; or use of iterative reconstruction technique. Specific details can be referenced in the facility's radiology CT exam ope rational policy. FINDINGS: There is no intracranial hemorrhage, hydrocephalus or midline shift. The basal cisterns, smith-white differentiation, and convexity sulci are maintained. Normal orbital soft tissues. Unchanged parenchym al atrophy. Unchanged right frontal and parietal lobe encephalomalacia. The mastoid air cells are clear. The paranasal sinuses are clear. The osseous structures are normal . IMPRESSION: No acute intracranial abnormality. Unchanged right frontal and right parietal lobe encephalomalacia. Report Dictated By: Teo Chase MD at 01/18/2018 12:36 PM Report E-Signed By: Teo Chase MD at 01/18/2018 12:38 PM [id number]
--- NOTE | 2018-01-18 12:50 | RADIOLOGY IMAGING REPORT ---
FACILITY: [facility] - [place] PATIENT NAME: Zechariah Worley : 1960 MR: [id number] V: [id number] EXAM DATE: ORDERING PHYSICIAN: DAYNE BRENNAN TECHNOLOGIST: Location: [facility] Patient: Zechariah Worlye : 1960 Visit/Account:[id number] Date of Sevice: 01/18/2018 EXAMINATION: CT Cervical spine without intravenous contrast HISTORY: Trauma COMPARISON: October 28, 2017 TECHNIQUE: Axial images were obtained from the skull base through the upper thoracic spine without I V contrast administration. Coronal and sagittal reformatted images were generated from the axial sour ce data. One of the following dose optimization techniques was utilized in the performance of this exam: autom ated exposure control; adjustment of the mA and/or kV according to patient size; or use of iterative reconstruction technique. Specific details can be referenced in the facility's radiology CT exam ope rational policy. FINDINGS: Vertebral bodies and posterior elements: Unchanged basilar invagination. No fracture identified. Kanu ectomy postsurgical change with bone graft prosthesis at the C4, C5 and C6 levels as before. Normal v ertebral body heights. Alignment: Unchanged retrolisthesis of C2 on C3. Disc Spaces: Severe unchanged C2-3 and C6-7 disc space degeneration. Fused C3-4, C4-5, C5-6 disc spac es. Severe degeneration of the right C1 and C2 lateral mass articulation. Multilevel degenerative for aminal narrowing. Hardware: Unchanged anterior plate and screws extend from C3 through C6. The hardware is intact. Soft tissues: Normal prevertebral soft tissues. Visualized upper chest: Normal. IMPRESSION: No acute fracture or acute abnormality. Unchanged chronic findings as described above. Report Dictated By: Teo Chase MD at 01/18/2018 12:38 PM Report E-Signed By: Teo Chase MD at 01/18/2018 12:46 PM WSN:[email or web address]
[2018-01-18] MEDS ORDERED: [UNRECOGNIZED DRUG - OTHER] IV ONE (12:55)
[2018-01-18] MEDS ORDERED: HEPARIN (PORC) 5000 UN/ML VIAL IVP ONE (12:55)
--- NOTE | 2018-01-18 12:55 | RADIOLOGY IMAGING REPORT ---
FACILITY: [facility] - [place] PATIENT NAME: Zechariah Worley : 1960 MR: [id number] V: [id number] EXAM DATE: ORDERING PHYSICIAN: DAYNE BRENNAN TECHNOLOGIST: Location: [facility] Patient: Zechariah Worley : 1960 Visit/Account:[id number] Date of Sevice: 01/18/2018 EXAMINATION: CT chest with IV contrast CT abdomen with IV contrast CT pelvis with IV contrast HISTORY: Fall. TECHNIQUE: Spiral scan was obtained through the chest, abdomen and pelvis during injection of nonio jame iodinated intravenous contrast. Sagittal and coronal reformatted images are also submitted. One of the following dose optimization techniques was utilized in the performance of this exam: Autom ated exposure control; adjustment of the mA and/or kV according to the patient's size; or use of an i terative reconstruction technique. Specific details can be referenced in the facility's radiology C T exam operational policy. CONTRAST: 75 mL of IV Isovue-370. COMPARISON: 10/28/2017. FINDINGS: CT THORAX: Lungs / pleura: There is a new small right pleural effusion. There is patchy interstitial and alveol ar infiltrates in both lower lobes with mild consolidation in the right lower lobe. No other consolid ation. No pneumothorax or left pleural effusion. No discrete nodule. Airways are clear. Mediastinum / jaquan: No enlarged lymph nodes or abnormal density. Heart / pericardium: Heart is normal size. Small pericardial fluid is again present. Pacing wires ar e in place. Vessels: Aorta shows no aneurysm or dissection. The pulmonary arteries are grossly normal. Musculoskeletal / Body wall: Bony structures show no acute fractures. Old 7 through 10 right rib fra ctures. Stable compression the T12 vertebral body without retropulsion. No aggressive bony lesions. C hest wall shows no enlarged axillary lymph nodes or masses. CT ABDOMEN AND PELVIS: Liver / biliary: The liver shows no focal abnormality. Status post cholecystectomy. The biliary syste m is unremarkable. Pancreas: Mild fatty replacement without focal abnormality. Spleen: No focal abnormality. Adrenal glands: Negative. Kidneys: Stable multiple small nonobstructing renal calculi. Largest 4 mm. No discrete renal lesions. Pelvic structures: Negative. Bowel: Residual contrast and stool seen throughout colon with prominent stool in the rectosigmoid col on. Colon shows no focal abnormality. The appendix is not visualized. Small bowel shows no focal abno rmality or obstruction. The stomach is mainly decompressed and grossly normal. Peritoneum / retroperitoneum / mesenteries: No free air, free fluid, fluid collections or areas of in flammation. There is a small right-sided periumbilical hernia containing fat. There is a moderate-siz ed supraumbilical ventral hernia containing fat. These are stable. Vessels: Negative. Musculoskeletal / Body wall: Degenerative changes and scoliotic changes to the spine. No acute fractu res or aggressive bony lesions. Lymph node assessment: Negative. IMPRESSION: 1. No indication of traumatic injury to the chest, abdomen or pelvis. 2. There is a new small right pleural effusion. Both lower lobes do show interstitial and alveolar in filtrates with small area of consolidation the right lower lobe. This could be secondary to pneumonia or even aspiration. 3. Small amount of pericardial fluid which is stable. 4. Stool seen throughout the colon with prominent on the rectosigmoid colon. No focal abnormality or obstruction. 5. Stable nonobstructing bilateral renal calculi. 6. Other stable chronic findings as above. Report Dictated By: Perry Contreras at 01/18/2018 12:38 PM Report E-Signed By: Perry Contreras at 01/18/2018 12:51 PM WSN:[id number]
[2018-01-18] MEDS ORDERED: CEFEPIME HCL 1 GM VIAL IVP ONE (13:00)
[2018-01-18] MEDS ORDERED: VANCOMYCIN 1 GM ADDVIAL 1 GM in NS(*) 0.9% 250 ML ADDVAN BAG 250 ML IVPB ONE (13:15)
--- NOTE | 2018-01-18 13:22 | EKG ---
[place] [facility] [place] MOISÉS AYALA : [id number] MR: [id number] V: [id number] EXAM DATE: ORDERING PHYSICIAN: DAYNE BRENNAN TECHNOLOGIST: Test Reason : elevated trop Blood Pressure : / mmHG Vent. Rate : 079 BPM Atrial Rate : 079 BPM P-R Int : 182 ms QRS Dur : 084 ms QT Int : 404 ms P-R-T Axes : 077 -73 073 degrees QTc Int : 463 ms Normal sinus rhythm Left axis deviation Low voltage QRS Inferior infarct (cited on or before 16-DEC-2015) Anterolateral infarct (cited on or before 16-DEC-2015) Abnormal ECG When compared with ECG of 02-JAN-2018 12:41, Questionable change in initial forces of Inferior leads Nonspecific T wave abnormality no longer evident in Inferior leads Nonspecific T wave abnormality now evident in Anterolateral leads Confirmed by RAFAELA DODGE ([id number]) on 01/18/2018 7:29:11 PM Referred By: Confirmed By:RAFAELA DODGE
[2018-01-18 14:25] VITALS: BP 97/65
== END 2018-01-18 15:18 | disposition short-term general hospital (02) ==
LOC: ER 10:15
DX: S09.90XA Unspecified injury of head, initial encounter (principal); R41.82 Altered mental status, unspecified; I21.4 Non-ST elevation (NSTEMI) myocardial infarction; I95.9 Hypotension, unspecified; J18.9 Pneumonia, unspecified organism
CPT/HCPCS: 70450; 71260; 72125; 74177; 81001; 83605; 83690; 84484; 85025; 85610; 85730; 87040; 87502; 90471; 90715; 93005; 96361; 96365; 96368; 96375; 99285; G0480; J0692; J1644; J3370; J7030; J7040; J7050; Q9967; 80320; 82040; 82247; 82310; 82374; 82435; 82565; 82947; 84075; 84132; 84155; 84295; 84450; 84460; 84520; L0172

== ENCOUNTER → 2018-01-18 | Outpatient (CLI) | payer MEDICAID, MEDICARE, OTHER | LOC: AMB 09:41 | PROVIDERS: ATTEND Nurse Practitioner | DX: S00.81XA Abrasion of other part of head, initial encounter (principal); M79.89 Other specified soft tissue disorders; W07.XXXA Fall from chair, initial encounter | CPT/HCPCS: A0425; A0429 ==

== ENCOUNTER → 2018-01-18 | Outpatient (CLI) | payer MEDICARE, MEDICAID | LOC: AMB 14:45 | PROVIDERS: ATTEND Nurse Practitioner | DX: I21.4 Non-ST elevation (NSTEMI) myocardial infarction (principal); J18.9 Pneumonia, unspecified organism | CPT/HCPCS: A0425; A0426 ==

== ENCOUNTER → 2018-02-22 | Outpatient (CLI) | payer MEDICARE, MEDICAID ==
[~2018-02-22] MED LIST changes: -LOSA25TA52 PO; +LOSA25TA57 PO
--- NOTE | 2018-02-22 15:06 | RADIOLOGY IMAGING REPORT ---
FACILITY: [facility] PATIENT NAME: Zechariah Worley : 1960 MR: [id number] V: [id number] EXAM DATE: ORDERING PHYSICIAN: DAYNE KASPER TECHNOLOGIST: Location: [facility] [place] Patient: Zechariah Worley : 1960 Visit/Account:[id number] Date of Sevice: 02/22/2018 Technique: CHEST PA AND LAT HISTORY: Atelectasis Comparison studies: CT chest January 18, 2018, chest radiograph January 02, 2018 FINDINGS: No acute airspace consolidation. No pleural infusion. There is pulmonary hyperexpansion. Bibasilar scarring and/or atelectasis is noted. There are scattered interstitial lung changes. The right chest port pacer, leads as well as cardiomediastinal silhouette are unchanged. Redemonstrated is a compression deformity within the lower thoracic spine. IMPRESSION: 1. Chronic lung findings not significantly changed. Report Dictated By: Hector Rubi DO at 02/22/2018 2:57 PM Report E-Signed By: Hector Rubi DO at 02/22/2018 3:01 PM WSN:[id number]
== END ==
LOC: RAD 14:15
PROVIDERS: ATTEND Family Medicine
DX: J98.11 Atelectasis (principal)
CPT/HCPCS: 71046

== ENCOUNTER → 2018-03-12 | Outpatient (REF) | payer MEDICARE, MEDICAID | LOC: ZZLCC 07:18 | PROVIDERS: ATTEND Family Medicine | DX: N41.0 Acute prostatitis (principal) | CPT/HCPCS: 84153 ==

== ENCOUNTER → 2018-03-14 | Outpatient (CLI) | payer MEDICARE, MEDICAID ==
--- NOTE | 2018-03-14 15:20 | RADIOLOGY IMAGING REPORT ---
FACILITY: [facility] PATIENT NAME: Zechariah Worley : 1960 MR: [id number] V: [id number] EXAM DATE: ORDERING PHYSICIAN: MUSTAPHA LEMUS TECHNOLOGIST: Location: [facility] Patient: Zechariah Worley : 1960 Visit/Account:[id number] Date of Sevice: 03/14/2018 ABDOMEN PELVIS ESWL CYSTO W/O HISTORY: Kidney stones TECHNIQUE: Axial images acquired through the abdomen/pelvis. Coronal and sagittal reformatting also performed. No IV contrast administered.Dose Lowering Technique One of the following dose optimization techniques was utilized in the performance of this exam: Autom ated exposure control; adjustment of the mA and/or kV according to the patient's size; or use of an i terative reconstruction technique. Specific details can be referenced in the facility's radiology C T exam operational policy. COMPARISON: January 18, 2018 FINDINGS: Visualized lung bases: The study is limited due to extensive motion artifact. There appears to be i nterstitial thickening in the lung bases in location of previously noted extensive pulmonary infiltra jon. There is a masslike area of consolidation in the posterior sulcus the right lower lobe measurin g approximately 1.9 x 1.6 cm best seen on axial image 41 of series 3. This is in an area of previous dense airspace consolidation and could conceivably represent scarring although a mass lesion is not excluded.. Small pericardial effusion appears similar to the prior study. Cardiac pacemaker leads also incomple tely imaged Hepatobiliary: Postsurgical changes from a cholecystectomy Spleen: Negative. Adrenals: Negative. Pancreas: Atrophic Kidneys ureters and bladder: At least four nonobstructing calculi are present in the right renal heather ecting system measuring up to 5 mm in diameter. At least five nonobstructing calculi are identified in the left renal collecting system measuring up to 5 x 3 mm no evidence of hydronephrosis or hydroureter. Several tiny calcifications are identified within the posterior aspect of the bladder appeared be within the lumen and may represent recently p assed calculi. Bladder wall is moderately thickened . On the bladder dome are suggestion of a small soft tissue nodule Genitalia: Prostate gland is not well seen GI: There is a large amount of stool in the rectal vault. The stomach is markedly distended with pa rticulate material which may be related to a recent meal although clinical correlation needed . The re are bowel anastomoses in the mid abdomen Vessels/spaces/nodes: Negative. Bones/soft tissues: There is a severe levoconvex scoliosis of the lumbar spine with extensive spondy lotic changes. There is a moderate to severe compression fracture involving T12 vertebral body that appears stable is a ventral hernia to the right of midline above the level of the umbilicus containin g omentum. The hernia opening measures approximately 2 cm. There is an additional small ventral her apple just above and to the right of the umbilicus also containing omentum. This hernia opening measur es approximately 8 mm Additional findings: None pertinent. IMPRESSION: Study is limited due to extensive motion artifact. There appears to be interstitial thickening in th e lung bases in the location of the previously noted extensive bilateral pulmonary infiltrates. This could represent scarring There is a masslike area of consolidation the posterior sulcus the right lower lobe measuring 1.9 x 1 .6 cm. This was in the location of dense airspace consolidation on the previous study and could repr esent scarring although a mass lesion is not totally excluded Small pericardial effusion appears unchanged Nonobstructing nephrolithiasis bilaterally as detailed above Several tiny calcifications within the posterior aspect the bladder which appear to be within the farooq dder lumen and may represent the passed calculi The bladder wall is moderately thickened. There suggestion of a small soft tissue no ule along the b ladder dome. There is a large amount stool in the rectal vault.The stomach is markedly distended with particulate material although the small bowel is not distended. This could be related to a recent meal although clinical correlation needed to exclude a gastric outlet obstruction Extensive spondylotic changes of the lumbar spine and stable moderate severe compression fracture of T12. 2. Ventral hernias containing omentum as described above Report Dictated By: Vee Ortiz MD at 03/14/2018 2:41 PM Report E-Signed By: Vee Ortiz MD at 03/14/2018 3:17 PM WSN:[id number]
== END ==
LOC: CT 02:43
PROVIDERS: ATTEND Urology
DX: N20.0 Calculus of kidney (principal); S22.080S Wedge compression fracture of T11-T12 vertebra, sequela; K43.9 Ventral hernia without obstruction or gangrene
CPT/HCPCS: 74176

== ENCOUNTER → 2018-03-18 | Outpatient (REF) | payer MEDICARE, MEDICAID | LOC: ZZLCC 07:38 | PROVIDERS: ATTEND Family Medicine | DX: E03.9 Hypothyroidism, unspecified (principal); R13.11 Dysphagia, oral phase | CPT/HCPCS: 84134 ==